=== PATIENT | female | born 1955 | race African-American/Black ===

== ENCOUNTER 2017-11-08 20:19 | Inpatient (IN) | payer MEDICARE, OTHER ==
[~2017-11-08] VITALS: Ht 170.2 cm; Wt 122.7 kg
[~2017-11-08 20:19] MED LIST: DICL-86 PO; GLUCTAB PO; NEUR600T PO; PAIN MED; TYLE3 PO; [UNRECOGNIZED DRUG - REMARK]
[2017-11-08 20:27] VITALS: BP 184/107; PULSE 67; RESP 22; O2SAT 94
[2017-11-08] MEDS ORDERED: NITROGLYCERIN 0.4 MG SL 25 TABS/BTL SL ONE (20:45)
[2017-11-08] MEDS ORDERED: NITROGLYCERIN 2% OINT 1 GM PACKET TOPICAL ONE (20:45)
--- NOTE | 2017-11-08 20:45 | PD ---
HPI Chief Complaint: Respiratory Symptoms Time Seen by Provider: 20:34 Travel History International Travel<30 days: No Contact w/Intl Traveler<30days: No Traveled to known affect area: No History of Present Illness HPI 62y female with a history of congestive heart failure, COPD, diabetes mellitus with CKD, hypertension, presents to the ED complaining of shortness of breath with hallucinations for approximately 1 week. Patient states that she has been taking her made medications regularly which include Bumex but this has not helped control her symptoms. States in addition her legs have been swelling more than normal. Says that she does follow cardiology regularly. She does not know when her last echocardiogram was or the results of this. Says she is on 2 L/min at home but continues to feel short of breath. Says she has visual hallucinations which include seeing "little people" in her house. She is rather distressed about this. Her anthropology and archeology instructor Dr. Aguilar, her lung doctor is Dr. OB. FORREST Past Medical History Diabetes: Yes Diminished Hearing: No Menopausal: Yes Tubal Ligation: Yes Social History Alcohol Use: Yes (OCC) Tobacco Use: Yes (2.5 PPD) Substance Use: No Allergies-Medications (Allergen,Severity, Reaction): Coded Allergies: No Known Allergies (Verified Allergy, Unknown, 11/09/17) Reported Meds & Prescriptions Reported Meds & Active Scripts Active Reported Novolog Inj (Insulin Aspart) 1,000 Unit/10 Ml Vial 24 Units SQ TIDAC Levemir Inj (Insulin Detemir) 1,000 unit/ 10 ML Vial 95 Units SQ BID Do not mix with any other Insulin. Fish Oil + D3 (Fish Oil-Cholecalciferol) 1,200-1,000 Mg-Unit Cap 1,000 Cap PO DAILY Multi For Her (Multiple Vitamins W/ Minerals) 18 Mg Iron-600 Mcg-80 Mcg Tab Aspirin 81 Mg Chew 81 Mg CHEW DAILY Gabapentin 800 Mg Tab 800 Mg PO TID Allopurinol 100 Mg Tab 100 Mg PO TID Bumetanide 2 Mg Tab 2 Mg PO BID Metoprolol Tartrate 25 Mg Tab 25 Mg PO BID Losartan (Losartan Potassium) 25 Mg Tab 25 Mg PO DAILY Amiodarone (Amiodarone HCl) 200 Mg Tab 200 Mg PO DAILY Review of Systems Except as stated in HPI: all other systems reviewed are Neg Physical Exam Narrative GENERAL: Well-developed, well-nourished in mild distress SKIN: Focused skin assessment warm/dry. HEAD: Atraumatic. Normocephalic. EYES: Pupils equal and round. No scleral icterus. No injection or drainage. ENT: No nasal bleeding or discharge. Mucous membranes pink and moist. NECK: Trachea midline. No JVD. CARDIOVASCULAR: Regular rate and rhythm. No murmur appreciated. RESPIRATORY: No accessory muscle use. B/L lower lobes rhonchi MUSCULOSKELETAL: No obvious deformities. No clubbing. No cyanosis. No edema. NEUROLOGICAL: Awake and alert. No obvious cranial nerve deficits. Motor grossly within normal limits. Normal speech. PSYCHIATRIC: Appropriate mood and affect; insight and judgment normal. Data Data Last Documented VS Vital Signs Date Time Temp Pulse Resp B/P (MAP) Pulse Ox O2 Delivery O2 Flow Rate FiO2 11/08/17 22:51 20 11/08/17 21:42 75 127/59 (81) 96 Nasal Cannula 2.00 Orders Orders Complete Blood Count With Diff (11/08/17 20:36) Comprehensive Metabolic Panel (11/08/17 20:36) B-Type Natriuretic Peptide (11/08/17 20:36) Act Partial Throm Time (Ptt) (11/08/17 20:36) Prothrombin Time / Inr (Pt) (11/08/17 20:36) Magnesium (Mg) (11/08/17 20:36) Ckmb (Isoenzyme) Profile (11/08/17 20:36) Troponin I (11/08/17 20:36) Urinalysis - C+S If Indicated (11/08/17 20:36) Electrocardiogram (11/08/17 20:36) Chest, Pa & Lat (11/08/17 20:36) Nitroglycerin 2% Oint (Nitroglycerin 2% (11/08/17 20:45) Nitroglycerin Sl (Nitrostat Sl) (11/08/17 20:45) CKMB (11/08/17 21:30) CKMB% (11/08/17 21:30) Place In Observation (11/09/17 00:48) Activity Bed Rest With Brp (11/09/17 00:48) Vital Signs (Adult) Q4H (11/09/17 00:48) Cardiac Rhythm .As Directed (11/09/17 00:48) Notify Dr: Other .PRN (11/09/17 00:48) Notify Dr. Parameters (11/09/17 00:48) Resp Oxygen Nasal Cannula (11/09/17 ) Ckmb (Isoenzyme) Profile (11/09/17 00:48) Ckmb (Isoenzyme) Profile (11/09/17 03:48) Troponin I (11/09/17 00:48) Troponin I (11/09/17 03:48) Electrocardiogram (11/09/17 00:48) Electrocardiogram (11/09/17 03:48) ^ Obtain (11/09/17 00:48) Sodium Chloride 0.9% Flush (Ns Flush) (11/09/17 01:00) Sodium Chloride 0.9% Flush (Ns Flush) (11/09/17 09:00) Return To Factory Clerk / Telemetry JASON.Q8H (11/09/17 00:48) Admit Order (Ed Use Only) (11/09/17 00:49) CKMB (11/09/17 00:50) CKMB% (11/09/17 00:50) CKMB (11/09/17 03:30) CKMB% (11/09/17 03:30) Labs Laboratory Tests Test 11/08/17 21:00 11/08/17 21:30 11/09/17 00:50 Urine Color LIGHT-YELLOW Urine Turbidity CLEAR Urine pH 7.5 Urine Specific [place] 1.008 Urine Protein NEG mg/dL Urine Glucose (UA) NEG mg/dL Urine Ketones NEG mg/dL Urine Occult Blood NEG Urine Nitrite NEG Urine Bilirubin NEG Urine Urobilinogen LESS THAN 2.0 MG/DL Urine Leukocyte Esterase NEG Urine WBC LESS THAN 1 /hpf Urine Squamous Epithelial Cells 2 /hpf Microscopic Urinalysis Comment CULT NOT INDICATED White Blood Count 6.6 TH/MM3 Red Blood Count 4.29 MIL/MM3 Hemoglobin 11.1 GM/DL Hematocrit 35.9 % Mean Corpuscular Volume 83.7 FL Mean Corpuscular Hemoglobin 26.0 PG Mean Corpuscular Hemoglobin Concent 31.0 % Red Cell Distribution Width 18.0 % Platelet Count 254 TH/MM3 Mean Platelet Volume 9.5 FL Neutrophils (%) (Auto) 65.1 % Lymphocytes (%) (Auto) 23.4 % Monocytes (%) (Auto) 8.0 % Eosinophils (%) (Auto) 2.8 % Basophils (%) (Auto) 0.7 % Neutrophils # (Auto) 4.3 TH/MM3 Lymphocytes # (Auto) 1.5 TH/MM3 Monocytes # (Auto) 0.5 TH/MM3 Eosinophils # (Auto) 0.2 TH/MM3 Basophils # (Auto) 0.0 TH/MM3 CBC Comment DIFF FINAL Differential Comment Prothrombin Time 10.2 SEC Prothromb Time International Ratio 1.0 RATIO Activated Partial Thromboplast Time 22.2 SEC Blood Urea Nitrogen 55 MG/DL Creatinine 2.01 MG/DL Random Glucose 179 MG/DL Total Protein 7.4 GM/DL Albumin 3.1 GM/DL Calcium Level 8.9 MG/DL Magnesium Level 2.5 MG/DL Alkaline Phosphatase 64 U/L Aspartate Amino Transf (AST/SGOT) 42 U/L Alanine Aminotransferase (ALT/SGPT) 28 U/L Total Bilirubin 0.4 MG/DL Sodium Level 142 MEQ/L Potassium Level 4.9 MEQ/L Chloride Level 98 MEQ/L Carbon Dioxide Level 34.8 MEQ/L Anion Gap 9 MEQ/L Estimat Glomerular Filtration Rate 30 ML/MIN Total Creatine Kinase 330 U/L 260 U/L Creatine Kinase MB 2.7 NG/ML 2.1 NG/ML Creatine Kinase MB % 0.8 % 0.8 % Troponin I LESS THAN 0.02 NG/ML LESS THAN 0.02 NG/ML B-Type Natriuretic Peptide 39 PG/ML MDM Medical Decision Making Medical Screen Exam Complete: Yes Emergency Medical Condition: Yes Differential Diagnosis CHF, COPD, NSTEMI, angina Narrative Course 62y female with a history of CHF, COPD, HTN, and DM with CKD presents to the ED c/o SOB with hallucinations for 1 week. She uses O2 2LPM NC at home but still feels SOB. EKG shows Vital Signs Date Time Temp Pulse Resp B/P (MAP) Pulse Ox O2 Delivery O2 Flow Rate FiO2 11/08/17 20:27 67 22 184/107 (132) 94 Labs and imaging studies ordered. Physical exam findings demonstrate bilateral lower lobe rales, bilateral lower extremity edema, on nasal cannula. Last Impressions Chest X-Ray 11/08/172035 Signed Impressions: Service Date/Time: October 20:50 - CONCLUSION: 1. Mild congestive heart failure. Issac Sullivan MD Nitro 1" paste and Nitro SL administered. Labs and dispo pending as of transfer of care to my attending, Dr. Beckett. Condition: Stable Shoshana Marte Nov 08, 2017 20:45
--- NOTE | 2017-11-08 21:35 | RADRPT ---
EXAM DATE/TIME: 11/08/2017 20:50 [facility] COMPARISON: No previous studies available for comparison. INDICATIONS : Shortness of breath. MEDICAL HISTORY : Chronic obstructive pulmonary disease. Congestive heart failure. Diabetes mellitus type II. Hyper tension. Myocardial infarction. SURGICAL HISTORY : CABG. ENCOUNTER: Initial ACUITY: 1 week PAIN SCORE: 0/10 LOCATION: Bilateral chest FINDINGS: Cardiomegaly. Mild edema pattern. Trace pleural fluid. Postop CABG. CONCLUSION: 1. Mild congestive heart failure. Issac Sullivan MD on November 08, 2017 at 21:32 Board Certified Radiologist. This report was verified electronically.
[2017-11-08 21:42] VITALS: BP 127/59; PULSE 75; RESP 22; O2SAT 96
[2017-11-08] MEDS ORDERED: BUME2TAB PO (21:58)
[2017-11-08] MEDS ORDERED: ALLO100T PO (21:58)
[2017-11-08] MEDS ORDERED: LEVEMIR SQ (21:58)
[2017-11-08] MEDS ORDERED: NOVOLOGP2 SQ (21:58)
[2017-11-08] MEDS ORDERED: AMIO200T PO (21:58)
[2017-11-08] MEDS ORDERED: METO25TA3 PO (21:58)
[2017-11-08] MEDS ORDERED: FISHCAP4 PO (21:58)
[2017-11-08] MEDS ORDERED: LOSA25TA PO (21:58)
[2017-11-08] MEDS ORDERED: GABA800T PO (21:58)
[2017-11-08] MEDS ORDERED: ASPI-516 CHEW (21:58)
[2017-11-08] MEDS ORDERED: MULTTAB24 (21:58)
[2017-11-08 21:59] LABS: BILIRUBIN, URINE NEG (NEG); BLOOD, URINE NEG (NEG); GLUCOSE,URINE NEG (NEG); KETONE, URINE NEG (NEG); NITRITE,URINE NEG (NEG); PH, URINE 7.5 (5.0-8.5); SQUAMOUS EPITHELIAL CELL URINE 2 /hpf (0-5); URINE COLOR LIGHT-YELLOW (YELLW/STRAW); URINE LEUKOCYTE ESTERASE NEG (NEG)
[2017-11-08 22:35] LABS: AUTOMATED NEUTROPHIL # 4.3 TH/MM3 (1.8-7.7); BASOPHIL % 0.7 % (0.0-2.0); EOSINOPHIL # 0.2 TH/MM3 (0-0.4); EOSINOPHIL % 2.8 % (0.0-4.0); HEMATOCRIT 35.9 % (35.0-46.0); HEMOGLOBIN 11.1 GM/DL (11.6-15.3); LYMPH % 23.4 % (9.0-44.0); LYMPHOCYTE # 1.5 TH/MM3 (1.0-4.8); MEAN CELL VOLUME 83.7 FL (80.0-100.0); MEAN PLATELET VOLUME 9.5 FL (7.0-11.0); MONOCYTE # 0.5 TH/MM3 (0-0.9); NEUT % 65.1 % (16.0-70.0); PLATELET COUNT 254 TH/MM3 (150-450); RED BLOOD COUNT 4.29 MIL/MM3 (4.00-5.30); WHITE BLOOD COUNT 6.6 TH/MM3 (4.0-11.0)
[2017-11-08 22:51] LABS: PROTHROMBIN TIME - PATIENT 10.2 SEC (9.8-11.6)
[2017-11-08 23:12] LABS: ALBUMIN 3.1 GM/DL (3.4-5.0); ALKALINE PHOSPHATASE 64 U/L (45-117); ALT (GPT) 28 U/L (10-53); AST (GOT) 42 U/L (15-37); BICARBONATE 34.8 MEQ/L (21.0-32.0); BLOOD UREA NITROGEN 55 MG/DL (7-18); CALCIUM 8.9 MG/DL (8.5-10.1); CHLORIDE 98 MEQ/L (98-107); CREATININE 2.01 MG/DL (0.50-1.00); GLOMERULAR FILTRATION RATE 30 ML/MIN (>89); GLUCOSE,RANDOM 179 MG/DL (74-106); MAGNESIUM 2.5 MG/DL (1.5-2.5); SODIUM (NA) 142 MEQ/L (136-145); TOTAL BILIRUBIN ADULT 0.4 MG/DL (0.2-1.0); TROPONIN I LESS THAN 0.02 NG/ML (0.02-0.05)
[2017-11-08 23:32] LABS: TOTAL PROTEIN 7.4 GM/DL (6.4-8.2)
[2017-11-09] VITALS (7 sets, daily range): BP systolic 128–145; BP diastolic 57–70; PULSE 61–100; RESP 18–21; TEMP 98.1–98.3; O2SAT 91–98
[2017-11-09] MEDS ORDERED: SODIUM CHLORIDE 0.9% FLUSH 10 ML FLUSH IV FLUSH PRN (01:00)
[2017-11-09 01:42] LABS: TROPONIN I LESS THAN 0.02 NG/ML (0.02-0.05)
[2017-11-09 04:21] LABS: TROPONIN I LESS THAN 0.02 NG/ML (0.02-0.05)
[2017-11-09] MEDS ORDERED: NITROGLYCERIN 0.4 MG SL 25 TABS/BTL SL PRN (07:45)
--- NOTE | 2017-11-09 09:25 | HHI.HP ---
HPI Primary Care Physician KARTIK Martinez ([place], [place]) Chief Complaint Hallucinations History of Present Illness 62 year old female with history of CABGx3, CHF, COPD, o2/3L home continuous use , and recent hospitalization requiring intubation presents to ER for further evaluation of hallucinations. Reports being hospitalized 3 weeks ago at [facility] requiring emergent intubation. Discharged approximately 1.5 weeks ago. Reports doing "fine" however daughter reports mother to be hallucinating the last 2 nights. Hallucination same symptom prior to requiring intubation a few weeks ago, therefore daughter brought mother into ER for further evaluation. She expresses concern over preventing the need for intubation again. Endorse 3-4 pound weight gain over the last couple of days and requires to sit upright in order to breath easily. In regards to chest discomfort, reported to ER physician experiencing intermittent left anterior chest discomfort. Characterized as "needle pains." Duration seconds. No radiation of discomfort. No associated symptoms of nausea, vomiting, dyspnea, or diaphoresis. No known precipitating or relieving factors. Chest discomfort not her main concern bringing her to the ER. Review of Systems General: No fatigue,weakness, fever, chills, or change in appetite. Recently discharged 1.5 weeks ago [facility] s/p intubation. Since discharge has been in slowly returning to her general state of health, noting last 2 nights hallucinations. HEENT: No SKINNER, no vision changes, no nasal congestion or drainage, no dysphasia CV: As stated above. No current CP, pressure, or discomfort. RESP: O2/3L home use, reports "turning up" oxygen as needed more often. Requires sitting in upright position to breath. Chronic productive cough of thin, clear sputum. History of COPD and follows with Dr. Sierra. GI: No nausea, vomiting, or bowel changes. No change in appetite, no unintentional weight gain or weight loss. : No dysuria, urgency, frequency EXT: Bilateral lower leg edema increasing edema last few days, no paraesthesias MS: No discomfort or change in ROM NEURO: No difficulty with balance, LOC, motor/sensory deficits PSYCH: No anxiety, depression, or situational stress. SKIN: No rashes, no concerning lesions Past Family Social History Allergies: Coded Allergies: No Known Allergies (Verified Allergy, Unknown, 11/09/17) Past Medical History Congestive heart failure, COPD, HLD, HTN, type II diabetes, home oxygen, CAD, cardiomyopathy Past Surgical History CABG x3 (2011) Reported Medications Reported Meds & Active Scripts Active Reported Novolog Inj (Insulin Aspart) 1,000 Unit/10 Ml Vial 24 Units SQ TIDAC Levemir Inj (Insulin Detemir) 1,000 unit/ 10 ML Vial 95 Units SQ BID Do not mix with any other Insulin. Fish Oil + D3 (Fish Oil-Cholecalciferol) 1,200-1,000 Mg-Unit Cap 1,000 Cap PO DAILY Multi For Her (Multiple Vitamins W/ Minerals) 18 Mg Iron-600 Mcg-80 Mcg Tab Aspirin 81 Mg Chew 81 Mg CHEW DAILY Gabapentin 800 Mg Tab 800 Mg PO TID Allopurinol 100 Mg Tab 100 Mg PO TID Bumetanide 2 Mg Tab 2 Mg PO BID Metoprolol Tartrate 25 Mg Tab 25 Mg PO BID Losartan (Losartan Potassium) 25 Mg Tab 25 Mg PO DAILY Amiodarone (Amiodarone HCl) 200 Mg Tab 200 Mg PO DAILY Active Ordered Medications Current Medications Medications (Trade) Dose Ordered Sig/Elder Route Start Time Stop Time Status Last Admin (NS Flush) 2 ml UNSCH PRN IV FLUSH 11/09/17 01:00 (NS Flush) 2 ml BID IV FLUSH 11/09/17 09:00 (Tylenol) 500 mg Q4H PRN PO 11/09/17 07:45 (Zofran Inj) 4 mg Q6H PRN IV PUSH 11/09/17 07:45 (Nitrostat Sl) 0.4 mg Q5M PRN SL 11/09/17 07:45 (Aspirin) 325 mg DAILY PO 11/09/17 09:00 Social History Known CAD, HLD, HTN, and Type II DM. Former smoker. 90-112.5 pack year history. Denies any alcohol or illegal drug use. Past cardiac testing November 2016 Nuclear chemical stress testing with Dr. Escamilla office. Spoke with Eugenie from Dr. Escamilla office, testing reported to be normal. Awaiting results to be faxed. CABGx3 6 years ago-[facility] Physical Exam Vital Signs Vital Signs Date Time Temp Pulse Resp B/P (MAP) Pulse Ox O2 Delivery O2 Flow Rate FiO2 11/09/17 07:28 66 18 133/63 (86) 98 Room Air 11/09/17 03:27 68 20 128/57 (80) 96 Nasal Cannula 2.00 11/09/17 00:57 96 Nasal Cannula 2.00 11/08/17 22:51 20 11/08/17 21:42 75 22 127/59 (81) 96 Nasal Cannula 2.00 11/08/17 20:27 67 22 184/107 (132) 94 Physical Exam GENERAL: Alert WD, pleasant, obese, female sitting upright in bed with o2/3L nasal cannula with mild difficulty breathing. HEAD: NC, AT CV: RRR, 2/6 systolic murmur. S1-S2 no S3-S4. JVD noted. RESP: Diminished lungs throughout bilateral, rales noted. No wheeze or rhonchi. symmetrical chest rise, able to speak in full sentences with some difficulty breathing, nasal cannula in use. ABD: Soft, NT, ND, no masses, positive bowel tones, obese EXT: Pulses +14, +2 pitting bilateral lower leg edema MS: Normal tone 4 extremities, no obvious deformities, full range of motion NEURO: CN II through CN XII grossly intact, motor strength 5/5 PSYCH: A+O 3, pleasant affect, appropriate speech, mood, insight and judgment SKIN: Normal turgor, dry, normal texture, no lesions, no rashes, surgical scars bilateral lower extremities and midchest Laboratory Laboratory Tests Test 11/08/17 21:00 11/08/17 21:30 11/09/17 00:50 11/09/17 03:30 Urine Color LIGHT-YELLOW Urine Turbidity CLEAR Urine pH 7.5 Urine Specific [place] 1.008 Urine Protein NEG Urine Glucose (UA) NEG Urine Ketones NEG Urine Occult Blood NEG Urine Nitrite NEG Urine Bilirubin NEG Urine Urobilinogen LESS THAN 2.0 Urine Leukocyte Esterase NEG Urine WBC LESS THAN 1 Urine Squamous Epithelial Cells 2 Microscopic Urinalysis Comment CULT NOT INDICATED White Blood Count 6.6 Red Blood Count 4.29 Hemoglobin 11.1 Hematocrit 35.9 Mean Corpuscular Volume 83.7 Mean Corpuscular Hemoglobin 26.0 Mean Corpuscular Hemoglobin Concent 31.0 Red Cell Distribution Width 18.0 Platelet Count 254 Mean Platelet Volume 9.5 Neutrophils (%) (Auto) 65.1 Lymphocytes (%) (Auto) 23.4 Monocytes (%) (Auto) 8.0 Eosinophils (%) (Auto) 2.8 Basophils (%) (Auto) 0.7 Neutrophils # (Auto) 4.3 Lymphocytes # (Auto) 1.5 Monocytes # (Auto) 0.5 Eosinophils # (Auto) 0.2 Basophils # (Auto) 0.0 CBC Comment DIFF FINAL Differential Comment Prothrombin Time 10.2 Prothromb Time International Ratio 1.0 Activated Partial Thromboplast Time 22.2 Blood Urea Nitrogen 55 Creatinine 2.01 Random Glucose 179 Total Protein 7.4 Albumin 3.1 Calcium Level 8.9 Magnesium Level 2.5 Alkaline Phosphatase 64 Aspartate Amino Transf (AST/SGOT) 42 Alanine Aminotransferase (ALT/SGPT) 28 Total Bilirubin 0.4 Sodium Level 142 Potassium Level 4.9 Chloride Level 98 Carbon Dioxide Level 34.8 Anion Gap 9 Estimat Glomerular Filtration Rate 30 Total Creatine Kinase 330 260 272 Creatine Kinase MB 2.7 2.1 2.3 Creatine Kinase MB % 0.8 0.8 0.8 Troponin I LESS THAN 0.02 LESS THAN 0.02 LESS THAN 0.02 B-Type Natriuretic Peptide 39 Result Diagram: 11/08/17212911/08/172129 Imaging Last 48 hours Impressions Chest X-Ray 11/08/172035 Signed Impressions: Service Date/Time: October 20:50 - CONCLUSION: 1. Mild congestive heart failure. Issac Sullivan MD Course EKG NSR, nonspecific st changes Caprini VTE Risk Assessment Caprini VTE Risk Assessment: Mod/High Risk (score >= 2) Caprini Risk Assessment Model Point Value = 1 Point Value = 2 Point Value = 3 Point Value = 5 Age 41-60 Minor surgery BMI > 25 kg/m2 Swollen legs Varicose veins or History of unexplained or recurrent spontaneous Oral contraceptives or hormone replacement Sepsis (< 1 month) Serious lung disease, including pneumonia (< 1 month) Abnormal pulmonary function Acute myocardial infarction Congestive heart failure (< 1 month) History of inflammatory bowel disease Medical patient at bed rest Age 61-74 Arthroscopic surgery Major open surgery (> 45 min) Laparoscopic surgery (> 45 min) Malignancy Confined to bed (> 72 hours) Immobilizing plaster cast Central venous access Age >= 75 History of VTE Family history of VTE Factor V Leiden Prothrombin [id number] Lupus anticoagulant Anticardiolipin antibodies Elevated serum homocysteine Heparin-induced thrombocytopenia Other congenital or acquired thrombophilia Stroke (< 1 month) Elective arthroplasty Hip, pelvis, or leg fracture Acute spinal cord injury (< 1 month) Prophylaxis Regimen Total Risk Factor Score Risk Level Prophylaxis Regimen 0-1 Low Early ambulation 2 Moderate Order ONE of the following: *Sequential Compression Device (SCD) *Heparin 5000 units SQ BID 3-4 Higher Order ONE of the following medications: *Heparin 5000 units SQ TID *Enoxaparin/Lovenox 40 mg SQ daily (WT < 150 kg, CrCl > 30 mL/min) *Enoxaparin/Lovenox 30 mg SQ daily (WT < 150 kg, CrCl > 10-29 mL/min) *Enoxaparin/Lovenox 30 mg SQ BID (WT < 150 kg, CrCl > 30 mL/min) AND/OR *Sequential Compression Device (SCD) 5 or more Highest Order ONE of the following medications: *Heparin 5000 units SQ TID (Preferred with Epidurals) *Enoxaparin/Lovenox 40 mg SQ daily (WT < 150 kg, CrCl > 30 mL/min) *Enoxaparin/Lovenox 30 mg SQ daily (WT < 150 kg, CrCl > 10-29 mL/min) *Enoxaparin/Lovenox 30 mg SQ BID (WT < 150 kg, CrCl > 30 mL/min) AND *Sequential Compression Device (SCD) Assessment and Plan Assessment and Plan #1 Atypical chest pain-admitted to chest pain center. Ruled out with 3 sets of EKGs, cardiac enzymes, and monitored on telemetry overnight. Will be seen and evaluated by Dr. Niranjan Grady. Reports recently completing a nuclear stress testing within the last 6 months. Call placed to Dr. Escamilla office to determine most recent cardiac testing. #2 History of CHF with possible exacerbation-rales bilateral, JVD noted. Consider continuing Bumex, baseline creatine level unknown. Will discuss with Dr. Grady. Most likely will benefit from medical management observation or inpatient stay. This will be determined by Dr. Grady after his evaluation. #3 Renal insufficiency-baseline creating level unknown, most recent available comparison labs from 2010. Obtain records from [facility] recent admission. #4 History of CAD-continue #5 History of Type II diabetes insulin dependent-SSI low dose scale, continuing home insulin regimen after NPO status changed. Discussed with patient who verbalized understanding. 0930 Spoke with Eugenie, from Dr. Escamilla office. Most recent cardiac testing November 2016 reported to be unremarkable. 1130-Patient seen and evaluated by Dr. Grady. No further cardiac testing required at this time. Recommend inpatient admission and medical management for fluid management, renal failure, and stabilize respiratory status. This has been discussed in length with patient, who verbalized understanding and agreeable to plan of care. Danielle Hoover Nov 09, 2017 09:25
[2017-11-09] MEDS ORDERED: DEXTROSE 50% IN WATER 50 ML VIAL(D50) IV PUSH PRN (09:30)
[2017-11-09] MEDS ORDERED: GLUCAGON 1 MG/ML VIAL OTHER PRN (09:30)
[2017-11-09] MEDS: AMIODARONE 200 MG TAB PO SCH (10:24)
[2017-11-09] MEDS: LOSARTAN 25 MG TAB PO SCH (10:24)
[2017-11-09] MEDS: METOPROLOL TARTRATE 25 MG TAB PO SCH ×2 (10:24→21:53)
[2017-11-09] MEDS: ASPIRIN 325 MG TAB PO SCH (10:25)
[2017-11-09] MEDS: SODIUM CHLORIDE 0.9% FLUSH 10 ML FLUSH IV FLUSH SCH ×2 (10:25→21:54)
--- NOTE | 2017-11-09 11:37 | PD.CARD.PN ---
Subjective Subjective Remarks Patient was discussed with nurse practitioner, medical records were reviewed, she was then seen and examined personally. There is a very complicated 62-year-old obese black female with severe COPD and superimposed congestive heart failure complicated by chronic renal failure, diabetes and hypertension. She has recently been hospitalized at [facility] requiring intubation and realized that visual hallucinations which she has experienced prior to needing intubation were an indication that she probably was deteriorating and needed medical treatment. She came to the emergency room quickly hoping to avoid recurrent intubation. She has noted significant swelling recently along with deterioration of her breathing. She has to sit bolt upright to be able to breathe currently. She has been using Bumex at home but is no longer responding effectively. Her PO2 on room air for even a couple of minutes is down to 91. She is going to require aggressive in- house treatment to clear her fluids restabilize her heart and lungs. Objective Medications Current Medications Medications (Trade) Dose Ordered Sig/Elder Route Start Time Stop Time Status Last Admin (NS Flush) 2 ml UNSCH PRN IV FLUSH 11/09/17 01:00 (NS Flush) 2 ml BID IV FLUSH 11/09/17 09:00 11/09/17 10:25 (Tylenol) 500 mg Q4H PRN PO 11/09/17 07:45 (Zofran Inj) 4 mg Q6H PRN IV PUSH 11/09/17 07:45 (Nitrostat Sl) 0.4 mg Q5M PRN SL 11/09/17 07:45 (Aspirin) 325 mg DAILY PO 11/09/17 09:00 11/09/17 10:25 (D50w (Vial) Inj) 50 ml UNSCH PRN IV PUSH 11/09/17 09:30 (Glucagon Inj) 1 mg UNSCH PRN OTHER 11/09/17 09:30 (NovoLOG SUPPLEMENTAL SCALE) 1 ACHS SLIDING SCALE SQ 11/09/17 12:00 (Cordarone) 200 mg DAILY PO 11/09/17 09:45 11/09/17 10:24 (Neurontin) 800 mg TID PO 11/09/17 13:00 (Cozaar) 25 mg DAILY PO 11/09/17 09:45 11/09/17 10:24 (Lopressor) 25 mg BID PO 11/09/17 09:45 11/09/17 10:24 Vital Signs / I&O Vital Signs Date Time Temp Pulse Resp B/P (MAP) Pulse Ox O2 Delivery O2 Flow Rate FiO2 11/09/17 10:27 100 20 134/64 (87) 91 Room Air 11/09/17 07:28 66 18 133/63 (86) 98 Room Air 11/09/17 03:27 68 20 128/57 (80) 96 Nasal Cannula 2.00 11/09/17 00:57 96 Nasal Cannula 2.00 11/08/17 22:51 20 11/08/17 21:42 75 22 127/59 (81) 96 Nasal Cannula 2.00 11/08/17 20:27 67 22 184/107 (132) 94 Physical Exam Obese lady sitting upright in bed with oxygen on still having difficulty breathing with a productive cough. Neck JVD is noted Examination of the chest reveals diminished breath sounds with bibasilar Rales Heart sounds are difficult to hear but appear to be regular and there also appears to be a systolic murmur. Abdomen is obese but could not be evaluated appropriately and her seated position and she could not lie recumbent peripheral edema is noted Laboratory Laboratory Tests Test 11/08/17 21:00 11/08/17 21:30 11/09/17 00:50 11/09/17 03:30 Urine Color LIGHT-YELLOW Urine Turbidity CLEAR Urine pH 7.5 Urine Specific [place] 1.008 Urine Protein NEG mg/dL Urine Glucose (UA) NEG mg/dL Urine Ketones NEG mg/dL Urine Occult Blood NEG Urine Nitrite NEG Urine Bilirubin NEG Urine Urobilinogen LESS THAN 2.0 MG/DL Urine Leukocyte Esterase NEG Urine WBC LESS THAN 1 /hpf Urine Squamous Epithelial Cells 2 /hpf Microscopic Urinalysis Comment CULT NOT INDICATED White Blood Count 6.6 TH/MM3 Red Blood Count 4.29 MIL/MM3 Hemoglobin 11.1 GM/DL Hematocrit 35.9 % Mean Corpuscular Volume 83.7 FL Mean Corpuscular Hemoglobin 26.0 PG Mean Corpuscular Hemoglobin Concent 31.0 % Red Cell Distribution Width 18.0 % Platelet Count 254 TH/MM3 Mean Platelet Volume 9.5 FL Neutrophils (%) (Auto) 65.1 % Lymphocytes (%) (Auto) 23.4 % Monocytes (%) (Auto) 8.0 % Eosinophils (%) (Auto) 2.8 % Basophils (%) (Auto) 0.7 % Neutrophils # (Auto) 4.3 TH/MM3 Lymphocytes # (Auto) 1.5 TH/MM3 Monocytes # (Auto) 0.5 TH/MM3 Eosinophils # (Auto) 0.2 TH/MM3 Basophils # (Auto) 0.0 TH/MM3 CBC Comment DIFF FINAL Differential Comment Prothrombin Time 10.2 SEC Prothromb Time International Ratio 1.0 RATIO Activated Partial Thromboplast Time 22.2 SEC Blood Urea Nitrogen 55 MG/DL Creatinine 2.01 MG/DL Random Glucose 179 MG/DL Total Protein 7.4 GM/DL Albumin 3.1 GM/DL Calcium Level 8.9 MG/DL Magnesium Level 2.5 MG/DL Alkaline Phosphatase 64 U/L Aspartate Amino Transf (AST/SGOT) 42 U/L Alanine Aminotransferase (ALT/SGPT) 28 U/L Total Bilirubin 0.4 MG/DL Sodium Level 142 MEQ/L Potassium Level 4.9 MEQ/L Chloride Level 98 MEQ/L Carbon Dioxide Level 34.8 MEQ/L Anion Gap 9 MEQ/L Estimat Glomerular Filtration Rate 30 ML/MIN Total Creatine Kinase 330 U/L 260 U/L 272 U/L Creatine Kinase MB 2.7 NG/ML 2.1 NG/ML 2.3 NG/ML Creatine Kinase MB % 0.8 % 0.8 % 0.8 % Troponin I LESS THAN 0.02 NG/ML LESS THAN 0.02 NG/ML LESS THAN 0.02 NG/ML B-Type Natriuretic Peptide 39 PG/ML Imaging Last 24 hours Impressions Chest X-Ray 11/08/172035 Signed Impressions: Service Date/Time: October 20:50 - CONCLUSION: 1. Mild congestive heart failure. Issac Sullivan MD Assessment and Plan Assessment and Plan This lady is in relatively acute distress with CHF superimposed on underlying severe lung disease She does not diurese well due to chronic renal failure Further complicated by diabetes and hypertension PLAN Further evaluation for ischemic heart disease in the chest pain clinic would be inappropriate and not possible She obviously cannot be discharged in her current status She will be admitted for aggressive diuresis restabilization and then evaluation as needed at that time Obtaining medical records from [facility] regarding her recent intubation there and from Dr. Carias would be helpful and will be requested Code Status Full code however this needs to be discussed with the patient and family at the first appropriate opportunity Discussed Condition With Discussed with the nurse practitioner and with the patient Stoner,Niranjan Butts MD Nov 09, 2017 11:37
[2017-11-09] MEDS: INSULIN ASPART SUPPLEMENTAL SCALE SQ SCH ×3 (12:00→21:52)
[2017-11-09] MEDS ORDERED: GABAPENTIN 400 MG CAP PO SCH (13:00)
[2017-11-09] MEDS: BUMETANIDE 1 MG TAB PO SCH ×2 (13:33→17:33)
--- NOTE | 2017-11-09 14:12 | PD.CONS ---
HPI Service [facility] Consult Requested By Dr. Grady Reason for Consult Medical Management, CHF Primary Care Physician Unknown Diagnoses: History of Present Illness Written by Rylee Gallo, acting as scribe for Dr. Alex on 11/09/17 at 14:12. 62-year-old female with history of CAD s/p 3vessel CABG, CHF, COPD on 3L NC, HTN , HLD, Diabetes, Anemia, CKD baseline creatinine around 2.0, presents with increasing shortness of breath, cough, edema, weight gain, and hallucinations over the past 2 weeks. The patient was recently admitted to [facility] 09/28-10/06 for acute renal failure, acute respiratory failure, CHF, fluid overload, possible pneumonia, s/p intubation on 09/29, discharged on Bumex 2mg bid for CHF. The patient states over the past couple weeks she started to feel sick again. She has been having increasing shortness of breath and increased frequency of cough with white sputum. She wears 3L NC oxygen at home. Denies fevers/chills. She also reports "a little bit" of chest pains intermittently, located at the left anterior chest with some sharp shooting pains to the left neck. She has increased leg swelling however her legs are still better than when she was in the hospital. Also reports recent 4 lbs weight gain over the past 2 weeks. Recently she started to hallucinate and seeing 2 little people on night 11/08. She's been having these hallucinations intermittently over the past 2 weeks which worries her because she was hallucinating before she was intubated in September. The hallucinations prompted her to come to the ER. She states it's possible that her oxygen has been falling off her face at night because she hasn't been taping it to her cheeks. She denies any chest pain currently after the nitro patch was put on in the ER. She saw her director advanced Dr. Escamilla on 10/30 and reportedly was doing well. She had a nuclear stress test 4 months ago that was reportedly normal. She reports compliance with her medications and fluid restrictions, but admits to salt indiscretion. She sees secretary receptionist Dr. Whitley. She was supposed to see him yesterday but she wasn't feeling well so she came to the hospital instead. She otherwise denies any other medical complaints including no lightheadedness, dizziness, congestion, sore throat, abdominal pain, nausea/vomiting, diarrhea, or urinary complaints. Review of Systems Except as stated in HPI: all other systems reviewed are Neg Past Family Social History Allergies: Coded Allergies: No Known Allergies (Verified Allergy, Unknown, 11/09/17) Past Medical History CAD s/p 3vessel CABG CHF COPD on 3L NC HTN HLD Diabetes Diabetic Foot Ulcer Osteomyelitis Gout Anemia CKD baseline creatinine around 2.0 TAMI Obesity Past Surgical History CABG Thoracentesis Tubal Ligation Reported Medications Novolog Inj (Insulin Aspart) 1,000 Unit/10 Ml Vial 24 Units SQ TIDAC Levemir Inj (Insulin Detemir) 1,000 unit/ 10 ML Vial 95 Units SQ BID Fish Oil + D3 (Fish Oil-Cholecalciferol) 1,200-1,000 Mg-Unit Cap 1,000 Cap PO DAILY Multi For Her (Multiple Vitamins W/ Minerals) 18 Mg Iron-600 Mcg-80 Mcg Tab Aspirin 81 Mg Chew 81 Mg CHEW DAILY Gabapentin 800 Mg Tab 800 Mg PO TID Allopurinol 100 Mg Tab 100 Mg PO TID Bumetanide 2 Mg Tab 2 Mg PO BID Metoprolol Tartrate 25 Mg Tab 25 Mg PO BID Losartan (Losartan Potassium) 25 Mg Tab 25 Mg PO DAILY Amiodarone (Amiodarone HCl) 200 Mg Tab 200 Mg PO DAILY Active Ordered Medications Current Medications Medications (Trade) Dose Ordered Sig/Elder Route Start Time Stop Time Status Last Admin (NS Flush) 2 ml UNSCH PRN IV FLUSH 11/09/17 01:00 (NS Flush) 2 ml BID IV FLUSH 11/09/17 09:00 11/09/17 10:25 (Tylenol) 500 mg Q4H PRN PO 11/09/17 07:45 (Zofran Inj) 4 mg Q6H PRN IV PUSH 11/09/17 07:45 (Nitrostat Sl) 0.4 mg Q5M PRN SL 11/09/17 07:45 (Aspirin) 325 mg DAILY PO 11/09/17 09:00 11/09/17 10:25 (D50w (Vial) Inj) 50 ml UNSCH PRN IV PUSH 11/09/17 09:30 (Glucagon Inj) 1 mg UNSCH PRN OTHER 3/23/18 09:30 (NovoLOG SUPPLEMENTAL SCALE) 1 ACHS SLIDING SCALE SQ 11/09/17 12:00 11/09/17 12:00 (Cordarone) 200 mg DAILY PO 11/09/17 09:45 11/09/17 10:24 (Neurontin) 800 mg TID PO 11/09/17 13:00 11/09/17 13:33 (Cozaar) 25 mg DAILY PO 11/09/17 09:45 11/09/17 10:24 (Lopressor) 25 mg BID PO 11/09/17 09:45 11/09/17 10:24 (Bumetanide) 2 mg BID@0900,1800 PO 11/09/17 13:15 11/09/17 13:33 (Levemir Inj) 95 units BID SQ 11/09/17 21:00 Family History Mother and father with old age, no significant medical problems reported 3 adult children, no reported significant history Social History Prior tobacco use, 20 pack year history, quit 5 years ago Denies any alcohol use Denies any illicit drug use States she gave "everything up" when she had CABG Physical Exam Vital Signs Vital Signs Date Time Temp Pulse Resp B/P (MAP) Pulse Ox O2 Delivery O2 Flow Rate FiO2 11/09/17 10:27 100 20 134/64 (87) 91 Room Air 11/09/17 07:28 66 18 133/63 (86) 98 Room Air 11/09/17 03:27 68 20 128/57 (80) 96 Nasal Cannula 2.00 11/09/17 00:57 96 Nasal Cannula 2.00 11/08/17 22:51 20 11/08/17 21:42 75 22 127/59 (81) 96 Nasal Cannula 2.00 11/08/17 20:27 67 22 184/107 (132) 94 Physical Exam GENERAL: Well-nourished, well-developed middle aged obese female patient in [facility]. SKIN: Warm and dry. No rash. HEAD: Normocephalic. Atraumatic. EYES: Pupils equal and round. No scleral icterus. No injection or drainage. ENT: No nasal bleeding or discharge. Mucous membranes pink and moist. NECK: Supple. Trachea midline. CARDIOVASCULAR: Regular rate and rhythm. No murmur appreciated. RESPIRATORY: No accessory muscle use. Clear to auscultation. Breath sounds equal bilaterally. GASTROINTESTINAL: Abdomen soft, non-tender, nondistended. Normoactive bowel sounds x4. MUSCULOSKELETAL: No obvious deformities. Trace to 1+ bilateral lower extremity edema. NEUROLOGICAL: Awake and alert. No obvious cranial nerve deficits. Motor grossly within normal limits. 5/5 muscle strength in bilateral upper and lower extremities. Normal speech. PSYCHIATRIC: Appropriate mood and affect; insight and judgment normal. Laboratory Laboratory Tests Test 11/08/17 21:00 11/08/17 21:30 11/09/17 00:50 11/09/17 03:30 Urine Color LIGHT-YELLOW Urine Turbidity CLEAR Urine pH 7.5 Urine Specific [place] 1.008 Urine Protein NEG Urine Glucose (UA) NEG Urine Ketones NEG Urine Occult Blood NEG Urine Nitrite NEG Urine Bilirubin NEG Urine Urobilinogen LESS THAN 2.0 Urine Leukocyte Esterase NEG Urine WBC LESS THAN 1 Urine Squamous Epithelial Cells 2 Microscopic Urinalysis Comment CULT NOT INDICATED White Blood Count 6.6 Red Blood Count 4.29 Hemoglobin 11.1 Hematocrit 35.9 Mean Corpuscular Volume 83.7 Mean Corpuscular Hemoglobin 26.0 Mean Corpuscular Hemoglobin Concent 31.0 Red Cell Distribution Width 18.0 Platelet Count 254 Mean Platelet Volume 9.5 Neutrophils (%) (Auto) 65.1 Lymphocytes (%) (Auto) 23.4 Monocytes (%) (Auto) 8.0 Eosinophils (%) (Auto) 2.8 Basophils (%) (Auto) 0.7 Neutrophils # (Auto) 4.3 Lymphocytes # (Auto) 1.5 Monocytes # (Auto) 0.5 Eosinophils # (Auto) 0.2 Basophils # (Auto) 0.0 CBC Comment DIFF FINAL Differential Comment Prothrombin Time 10.2 Prothromb Time International Ratio 1.0 Activated Partial Thromboplast Time 22.2 Blood Urea Nitrogen 55 Creatinine 2.01 Random Glucose 179 Total Protein 7.4 Albumin 3.1 Calcium Level 8.9 Magnesium Level 2.5 Alkaline Phosphatase 64 Aspartate Amino Transf (AST/SGOT) 42 Alanine Aminotransferase (ALT/SGPT) 28 Total Bilirubin 0.4 Sodium Level 142 Potassium Level 4.9 Chloride Level 98 Carbon Dioxide Level 34.8 Anion Gap 9 Estimat Glomerular Filtration Rate 30 Total Creatine Kinase 330 260 272 Creatine Kinase MB 2.7 2.1 2.3 Creatine Kinase MB % 0.8 0.8 0.8 Troponin I LESS THAN 0.02 LESS THAN 0.02 LESS THAN 0.02 B-Type Natriuretic Peptide 39 Result Diagram: 11/08/17212911/08/172129 Imaging Last Impressions Chest X-Ray 11/08/172035 Signed Impressions: Service Date/Time: October 20:50 - CONCLUSION: 1. Mild congestive heart failure. Issac Sullivan MD Assessment and Plan Assessment and Plan 62-year-old female with history of CAD s/p 3vessel CABG, CHF, COPD on 3L NC, HTN , HLD, Diabetes, Anemia, CKD baseline creatinine around 2.0, presents with increasing shortness of breath, cough, edema, weight gain, and hallucinations over the past 2 weeks. The patient was recently admitted to [facility] 09/28-10/06 for acute renal failure, acute respiratory failure, CHF, fluid overload, possible pneumonia, s/p intubation on 09/29, discharged on Bumex 2mg bid for CHF. Acute Diastolic CHF Exacerbation: prior records indicate history of diastolic CHF, however no echo on file. Patient with +SOB/BARAKAT, BLE edema. CXR reviewed with mild CHF. -continue patient's diuretic, Bumex 2mg po bid, difficult with diuresis secondary to CKD -continue patient's BB, ARB, aspirin -Monitor Is&Os, fluid/salt restrictions -Monitor on telemetry -Consult patient's Planting Material Unloader Dr. Escamilla Atypical Chest Pain with hx of CAD s/p CABG: suspect chest pain/SOB secondary to CHF as above. She had a nuclear stress test 4 months ago that was reportedly normal. -Rule out ACS with serial cardiac enzymes and EKGs -give aspirin, BB, nitro prn -monitor on telemetry -Cardiology consulted as above Hypertension: chronic -continue patient's home meds including cozaar, metoprolol, amiodarone -monitor BP, adjust antihypertensives as needed Diabetes Mellitus: chronic -continue patient's levemir 90u sq hs and Novolog 22u tidac -monitor accu-checks and cover with SSI COPD, Chronic Respiratory Failure on 3L NC at home: chronic, no wheezing on exam -continue duonebs q8h and q4h prn -O2 as needed -outpatient follow up with secretary receptionist Dr. Whitley. CKD, stage III: Cr 2.01, appears around baseline. Records from [facility] reviewed, baseline around 1.9. -avoid nephrotoxins, caution with diuresis -monitor renal function Hallucinations: patient reporting visual hallucinations. Possibly related to delirium, hypoxia; however eval for psychiatric etiology. -Consult psychiatry DVT Prophylaxis: Heparin sq This note was transcribed by aries Gallo. I, Dr. Ericka Alex personally performed the history, physical exam, and medical decision making; and confirmed the accuracy of the information in the transcribed note. Authenticated by Dr. Ericka Alex on 11/09/17 at 14:12. Code Status Full Code Discussed Condition With Patient, Danielle LOCKHARTRylee White PA-C Nov 09, 2017 14:12 Ericka Alex MD Nov 10, 2017 17:58
[2017-11-09] MEDS ORDERED: LEVEMIR SQ (14:56)
[2017-11-09] MEDS ORDERED: NOVOLOGP2 SQ (14:56)
[2017-11-09] MEDS ORDERED: RESP: ALBUTEROL 2.5 MG/IPRATROPIUM 0.5 MG NEB (PRN) NEB (15:00)
[2017-11-09] MEDS: RESP: ALBUTEROL 2.5 MG/IPRATROPIUM 0.5 MG NEB (SCH) NEB (16:14)
[2017-11-09] MEDS: INSULIN ASPART 1,000 UNITS/10 ML VIAL SQ SCH (17:33)
[2017-11-09] MEDS ORDERED: INSULIN DETEMIR 100 UNITS/ML VIAL SQ SCH (21:00)
[2017-11-09] MEDS: INSULIN DETEMIR 100 UNITS/ML VIAL SQ SCH (21:52)
[2017-11-09] MEDS: HEPARIN SODIUM - SQ 10,000 UNITS/ML VIAL SQ SCH (21:52)
[2017-11-09] MEDS: GABAPENTIN 400 MG CAP PO SCH (21:53)
[2017-11-09] MEDS: ACETAMINOPHEN 500 MG CPLT PO PRN (22:02)
[2017-11-10] VITALS (7 sets, daily range): BP systolic 105–147; BP diastolic 54–70; PULSE 56–64; RESP 19–20; TEMP 98–98.6; O2SAT 94–96
--- NOTE | 2017-11-10 00:23 | MB ---
cc: Cleve Terrell DO DATE: 11/09/2017 REASON FOR CONSULTATION: Congestive heart failure. HISTORY OF PRESENT ILLNESS: Wilson Morfin is a 62-year-old female who sees Dr. Escamilla as her integration architect and presented to [facility] on 11/09/2017. The patient was recently admitted to [facility] in the midportion of September for acute renal failure and acute respiratory failure requiring intubation. She has since been discharged in the middle portion of (0:53) and started getting more short of breath over the past few weeks. She has had a cough with white sputum. She denies any fevers or chills. She denies any chest pain. She has also noticed increased leg swelling. She has been checking her weight and she is up 4 pounds over the past 2 weeks. She also started hallucinating and seeing 2 little people starting the past few days. She has been having these hallucinations intermittently over the past 2 weeks, which worried her and led to her coming into the emergency room as she had similar type effects before being intubated at [facility]. Apparently, she saw Dr. Escamilla a week and a half ago and reportedly was doing well. She states that she had a stress test 4 months ago that was per her normal. She also states that she has been taking her medications and restricting her fluids as instructed, although she has had some salt indiscretion. PAST MEDICAL HISTORY: 1. Coronary artery disease. 2. Chronic diastolic heart failure. 3. Chronic obstructive pulmonary disease on 3 liters at home. 4. Hypertension. 5. Hyperlipidemia. 6. Diabetes. 7. Osteomyelitis. 8. Gout. 9. Anemia. 10. CKD. 11. Obstructive sleep apnea. 12. Obesity. PAST SURGICAL HISTORY: 1. CABG x3. 2. Thoracentesis. 3. Tubal ligation. ALLERGIES: NO KNOWN DRUG ALLERGIES. MEDICATIONS: 1. Amiodarone 200 mg daily. 2. Metoprolol tartrate 25 mg b.i.d. 3. Losartan 25 mg daily. 4. Aspirin 81 mg daily. 5. Gabapentin 800 mg t.i.d. 6. Bumex 2 mg b.i.d. 7. NovoLog 22 units with meals. 8. Levemir 90 units every night. 9. Allopurinol 100 mg t.i.d. FAMILY HISTORY: Denies premature coronary artery disease or sudden cardiac within the family. SOCIAL HISTORY: The patient previously smoked, but quit 5 years ago. Denies alcohol or drug abuse. REVIEW OF SYSTEMS: Fourteen systems were reviewed, including osteopathic; pertinent positives and negatives above, otherwise, negative. PHYSICAL EXAMINATION: VITAL SIGNS: Temperature 98.3, heart rate 61, blood pressure 145/70, respirations 20, pulse oximetry 95% on 2 liters. GENERAL: The patient appears well, in no acute distress, alert, awake and oriented x3. HEENT: Extraocular muscles intact. Mucous membranes moist. NECK: Is supple, no JVD at 45 degrees. No carotid bruits heard bilaterally. Carotid upstroke is brisk in nature. HEART: Has regular rate and rhythm. Positive first and second heart sounds with no noted murmurs, gallops or rubs. LUNGS: Have decreased breath sounds bilaterally. No overt wheezes, rales or rhonchi. ABDOMEN: Is soft, nontender, nondistended. No organomegaly noted. EXTREMITIES: Show 1+ pitting edema bilaterally. NEUROLOGIC: No focal deficits. SKIN: Warm, dry and intact. Osteopathically, mild lordosis, no kyphoscoliosis or paraspinal tender points. LABWORK: Hemoglobin 11.1, hematocrit 35.9, platelets 254. Potassium 4.9, BUN 55, creatinine 2.01. Troponin negative x3. BNP 39. Electrocardiogram (11/09/2017 at 0333) sinus rhythm, poor R-wave progression, possible old septal myocardial infarction. ASSESSMENT AND PLAN: 1. Acute diastolic congestive heart failure. 2. Increased weight gain, most likely due to congestive heart failure. 3. Salt indiscretion. 4. Coronary artery disease with a history of coronary artery bypass grafting. 5. Reported normal stress test 4 months ago. 6. Hypertension. 7. Diabetes mellitus. 8. Chronic obstructive pulmonary disease. 9. Hallucinations. 10. Chronic kidney disease 3. RECOMMENDATIONS: 1. Ms. Morfin presented mostly due to hallucinations, but she has also noticed some shortness of breath and weight gain recently. 2. She appears to have acute diastolic heart failure. In reviewing records from [facility], I believe that her exacerbation is most likely due to salt indiscretion. 3. We will plan on continuing to diurese her as possible. 4. Upon discharge, she will follow up with her integration architect, Dr. Escamilla. 5. We will plan on having Psychiatry see her as she has had visual hallucinations and I believe that this is what brought her in to the hospital, as she was concerned it was due to hypoxia. 6. Further recommendations will be made based on the hospital course. Thank you for allowing me to see Wilson Navjot. If there are any questions, please do not hesitate to call. DO UVALDO Barbosa/YASEMIN , 11:42 PM , 12:22 AM
[2017-11-10] MEDS: ACETAMINOPHEN 500 MG CPLT PO PRN ×2 (06:28→22:15)
[2017-11-10] MEDS: ONDANSETRON HCL 4 MG/2 ML VIAL IV PUSH PRN ×2 (06:28→23:13)
[2017-11-10] MEDS: RESP: ALBUTEROL 2.5 MG/IPRATROPIUM 0.5 MG NEB (SCH) NEB ×2 (08:56→15:46)
[2017-11-10] MEDS: GABAPENTIN 400 MG CAP PO SCH ×2 (09:26→21:00)
[2017-11-10] MEDS: METOPROLOL TARTRATE 25 MG TAB PO SCH ×2 (09:26→21:00)
[2017-11-10] MEDS: HEPARIN SODIUM - SQ 10,000 UNITS/ML VIAL SQ SCH ×2 (09:26→21:00)
[2017-11-10] MEDS: AMIODARONE 200 MG TAB PO SCH (09:27)
[2017-11-10] MEDS: BUMETANIDE 1 MG TAB PO SCH ×2 (09:27→18:00)
[2017-11-10] MEDS: ASPIRIN 81 MG CHEW TAB CHEW SCH (09:27)
[2017-11-10] MEDS: LOSARTAN 25 MG TAB PO SCH (09:27)
[2017-11-10] MEDS: ASPIRIN 325 MG TAB PO SCH (09:27)
[2017-11-10] MEDS: INSULIN ASPART SUPPLEMENTAL SCALE SQ SCH ×4 (09:28→21:00)
[2017-11-10] MEDS: INSULIN ASPART 1,000 UNITS/10 ML VIAL SQ SCH ×3 (09:28→17:00)
[2017-11-10] MEDS: SODIUM CHLORIDE 0.9% FLUSH 10 ML FLUSH IV FLUSH SCH ×2 (09:29→21:00)
--- NOTE | 2017-11-10 12:31 | EKG ---
Date Performed: 11/09/2017 Time Performed: 03:33:50 PTAGE: 62 years EKG: Sinus rhythm SEPTAL MYOCARDIAL INFARCTION ABNORMAL ECG No change PREVIOUS TRACING : 11/09/2017 01.16 DOCTOR: Niranjan Grady Interpretating Date/Time 11/10/2017 12:31:00
--- NOTE | 2017-11-10 12:32 | EKG ---
Date Performed: 11/09/2017 Time Performed: 01:16:01 PTAGE: 62 years EKG: Sinus rhythm SEPTAL MYOCARDIAL INFARCTION ABNORMAL ECG No change PREVIOUS TRACING : 11/08/2017 21.28 DOCTOR: Niranjan Grady Interpretating Date/Time 11/10/2017 12:31:45
--- NOTE | 2017-11-10 12:33 | EKG ---
Date Performed: 11/08/2017 Time Performed: 21:28:42 PTAGE: 62 years EKG: Sinus rhythm POSSIBLE RIGHT VENTRICULAR CONDUCTION DELAY SEPTAL MYOCARDIAL INFARCTION ABNORMAL ECG No significant change PREVIOUS TRACING : 04/25/2009 08.45 DOCTOR: Niranjan Grady Interpretating Date/Time 11/10/2017 12:32:40
--- NOTE | 2017-11-10 13:01 | HHI.PR ---
Subjective Remarks She is sitting in the chair eating she told me she is on on home O2 Currently on nasal cannula Problem with visual hallucination Discussed with cardiology Objective Vitals Vital Signs Date Time Temp Pulse Resp B/P (MAP) Pulse Ox O2 Delivery O2 Flow Rate FiO2 11/10/17 12:00 98.5 60 20 118/57 (77) 95 11/10/17 08:00 98.2 58 20 114/55 (74) 95 11/10/17 04:00 98.1 60 19 119/59 (79) 94 11/10/17 00:00 98.0 64 19 105/70 (82) 94 11/09/17 21:00 Nasal Cannula 2.00 11/09/17 20:00 98.1 61 21 128/61 (83) 94 11/09/17 16:14 94 Nasal Cannula 2.00 11/09/17 16:00 98.3 61 20 145/70 (95) 95 I/O 11/09/17 11/09/17 11/09/17 11/10/17 11/10/17 11/10/17 07:00 15:00 23:00 07:00 15:00 23:00 Intake Total 240 ml Balance 240 ml Intake Oral 240 ml # Voids 1 Result Diagram: 11/08/17212911/08/172129 Objective Remarks GENERAL: This is a well-nourished, well-developed patient, in no apparent distress. SKIN: No rashes, warm and dry HEAD: Atraumatic. Normocephalic. EYES: PERRLA . No scleral icterus. ENT: No bleeding, or drainage, Airway patent. NECK: Trachea midline. Supple CARDIOVASCULAR: RRR, no gallops, or rubs. RESPIRATORY: Fair air entry bilaterally. No W, R, or R GASTROINTESTINAL: Abdomen soft, non-tender, nondistended. Positive bowel sounds MUSCULOSKELETAL: Extremities without clubbing, cyanosis, or edema. Pedal pulses appreciated NEUROLOGICAL: Awake and alert. Moves all extremity. Normal speech.no focal neurological deficit A/P Assessment and Plan 62-year-old female with history of CAD s/p 3vessel CABG, CHF, COPD on 3L NC, HTN , HLD, Diabetes, Anemia, CKD baseline creatinine around 2.0, presents with increasing shortness of breath, cough, edema, weight gain, and hallucinations over the past 2 weeks. The patient [facility] for acute renal failure, acute respiratory failure, CHF, fluid overload, possible pneumonia, s/p intubation on 09/29, discharged on Bumex 2mg bid for CHF. 11/10: Visual hallucination, pending psych eval, D/W cardiology no further intervention at this point Acute Diastolic CHF Exacerbation: prior records indicate history of diastolic CHF, however no echo on file. Patient with +SOB/BARAKAT, BLE edema. CXR reviewed with mild CHF. -continue patient's diuretic, Bumex 2mg po bid, difficult with diuresis secondary to CKD -continue patient's BB, ARB, aspirin -Monitor Is&Os, fluid/salt restrictions -Monitor on telemetry -Consult patient's Hand Tile Maker Dr. Escamilla Atypical Chest Pain with hx of CAD s/p CABG: suspect chest pain/SOB secondary to CHF as above. She had a nuclear stress test 4 months ago that was reportedly normal. -Rule out ACS with serial cardiac enzymes and EKGs -give aspirin, BB, nitro prn -monitor on telemetry -Cardiology consulted as above Hypertension: chronic -continue patient's home meds including cozaar, metoprolol, amiodarone -monitor BP, adjust antihypertensives as needed Diabetes Mellitus: chronic -continue patient's levemir 90u sq hs and Novolog 22u tidac -monitor accu-checks and cover with SSI COPD, Chronic Respiratory Failure on 3L NC at home: chronic, no wheezing on exam -continue duonebs q8h and q4h prn -O2 as needed -outpatient follow up with banquet lead Dr. Whitley. CKD, stage III: Cr 2.01, appears around baseline. Records from [facility] reviewed, baseline around 1.9. -avoid nephrotoxins, caution with diuresis -monitor renal function Hallucinations: patient reporting visual hallucinations. Possibly related to delirium, hypoxia; however eval for psychiatric etiology. -Psychiatry consult DVT Prophylaxis: Heparin sq Rigo Gutierrez MD Nov 10, 2017 13:01
--- NOTE | 2017-11-10 13:17 | PD.CARD.PN ---
Subjective Subjective Remarks No events overnight No chest pain, SOB stable Seeing hallucinations last night including a man tied up in the bed, and people outside her window No intention for harm for herself or others Objective Medications Current Medications Medications (Trade) Dose Ordered Sig/Elder Route Start Time Stop Time Status Last Admin (NS Flush) 2 ml UNSCH PRN IV FLUSH 11/09/17 01:00 (NS Flush) 2 ml BID IV FLUSH 11/09/17 09:00 11/10/17 09:29 (Tylenol) 500 mg Q4H PRN PO 11/09/17 07:45 11/10/17 06:28 (Zofran Inj) 4 mg Q6H PRN IV PUSH 11/09/17 07:45 11/10/17 06:28 (Nitrostat Sl) 0.4 mg Q5M PRN SL 11/09/17 07:45 (Aspirin) 325 mg DAILY PO 11/09/17 09:00 11/10/17 09:27 (D50w (Vial) Inj) 50 ml UNSCH PRN IV PUSH 11/09/17 09:30 (Glucagon Inj) 1 mg UNSCH PRN OTHER 11/09/17 09:30 (NovoLOG SUPPLEMENTAL SCALE) 1 ACHS SLIDING SCALE SQ 11/09/17 12:00 11/10/17 12:47 (Cordarone) 200 mg DAILY PO 11/09/17 09:45 11/10/17 09:27 (Cozaar) 25 mg DAILY PO 11/09/17 09:45 11/10/17 09:27 (Lopressor) 25 mg BID PO 11/09/17 09:45 11/10/17 09:26 (Bumetanide) 2 mg BID@0900,1800 PO 11/09/17 13:15 11/10/17 09:27 (Neurontin) 800 mg BID PO 11/09/17 21:00 11/10/17 09:26 (Levemir Inj) 90 units HS SQ 11/09/17 21:00 11/09/17 21:52 (Aspirin Chew) 81 mg DAILY CHEW 11/10/17 09:00 11/10/17 09:27 (NovoLOG INJ) 22 units TIDAC SQ 11/09/17 17:00 11/10/17 12:46 (Duoneb Neb) 1 ampule Q4HR NEB PRN NEB 11/09/17 15:00 (Duoneb Neb) 1 ampule Q8HR WHILE AWAKE NEB NEB 11/09/17 16:00 11/10/17 08:56 (Heparin Inj) 5,000 units Q12HR SQ 11/09/17 21:00 11/10/17 09:26 Vital Signs / I&O Vital Signs Date Time Temp Pulse Resp B/P (MAP) Pulse Ox O2 Delivery O2 Flow Rate FiO2 11/10/17 12:00 98.5 60 20 118/57 (77) 95 11/10/17 08:00 98.2 58 20 114/55 (74) 95 11/10/17 04:00 98.1 60 19 119/59 (79) 94 11/10/17 00:00 98.0 64 19 105/70 (82) 94 11/09/17 21:00 Nasal Cannula 2.00 11/09/17 20:00 98.1 61 21 128/61 (83) 94 11/09/17 16:14 94 Nasal Cannula 2.00 11/09/17 16:00 98.3 61 20 145/70 (95) 95 I/O 11/09/17 11/09/17 11/09/17 11/10/17 11/10/17 11/10/17 07:00 15:00 23:00 07:00 15:00 23:00 Intake Total 240 ml Balance 240 ml Intake Oral 240 ml # Voids 1 Physical Exam GENERAL: NAD, AAOx3 SKIN: Warm and dry. HEAD: Atraumatic. Normocephalic. EYES: Pupils equal and round. No scleral icterus. No injection or drainage. ENT: No nasal bleeding or discharge. Mucous membranes pink and moist. NECK: Trachea midline. No JVD. CARDIOVASCULAR: Regular rate and rhythm. RESPIRATORY: No accessory muscle use. Decreased breath sounds bilaterally GASTROINTESTINAL: Abdomen soft, non-tender, nondistended. Hepatic and splenic margins not palpable. MUSCULOSKELETAL: Trace edema bilaterally NEUROLOGICAL: Awake and alert. No obvious cranial nerve deficits. Motor grossly within normal limits. Five out of 5 muscle strength in the arms and legs. Normal speech. PSYCHIATRIC: Appropriate mood and affect; insight and judgment normal. Assessment and Plan Problem List: (1) CAD (coronary artery disease) ICD Codes: I25.10 - Atherosclerotic heart disease of [place] coronary artery without angina pectoris (2) Hx of CABG ICD Codes: Z95.1 - Presence of aortocoronary bypass graft (3) Hallucinations ICD Codes: R44.3 - Hallucinations, unspecified (4) SOB (shortness of breath) ICD Codes: R06.02 - Shortness of breath (5) Acute on chronic diastolic (congestive) heart failure ICD Codes: I50.33 - Acute on chronic diastolic (congestive) heart failure Assessment and Plan 1) Present mostly due to hallucinations, as she noted these before being intubated last time, so felt like this was a precursor 2) Acute on chronic diastolic heart failure Possibly due to salt indiscretion Con't low salt diet and fluid restriction Con't diuresis 3) Upon discharge, will follow up with her sheriffs detective, Cleve Shah DO Nov 10, 2017 13:17
--- NOTE | 2017-11-10 15:59 | PD.PSY.CON ---
Provisional Diagnosis Admission Date Nov 09, 2017 at 07:40 [place]. Delirium, History of Present Illness Service Psychiatry Consult Requested By JOANNE Reason for Consult Visual hallucinations Primary Care Physician Unknown HPI Patient is a 62-year-old -[place] woman, lives with keenan and his mother, with no formal past psychiatric history, past medical history significant for CHF, HTN, DM, COPD and CKD who is admitted for CHF exacerbation , chest pain who had been experiencing visual hallucinations for the past two weeks which psychiatry was consulted for evaluation. Patient was found sitting on hospital chair, noted to be calm and cooperative, states that she was losing her breath and came to the hospital for the same. She states that she was noticing visual hallucinations in the mornings "man in my bed" or "little people when I was waking up" which lasted seconds not accompanied by auditory hallucinations. Patient also mentions that these episodes have occurred when she has noticed that she was not wearing the O2 cannula for her oxygen and waking up without it on. She denies having any visual hallucinations while awake and only occur as she is waking up. She denies any other perceptual disturbances, denies any mood or psychotic symptom, no delusional material elicited. Currently she reports feeling "alright" denies any suicidal/ homicidal ideations, denies any auditory or visual hallucinations nor any delusions at time of interview. Past psychiatric history: denies Substance use history: denies Past medical history: denies Allergies: NKDA Social history: domiciled with step son and his mother. Past Family Social History Coded Allergies: No Known Allergies (Verified Allergy, Unknown, 11/09/17) Active Scripts Insulin Aspart Inj (Novolog Inj) 1,000 Unit/10 Ml Vial, 22 UNITS SQ TIDAC for Blood Sugar Management, #10 ML 0 Refills Prov:Rylee Gallo PA-C 11/09/17 Insulin Detemir Inj (Levemir Inj) 1,000 unit/ 10 ML Vial, 90 UNITS SQ HS for Blood Sugar Management for 30 Days, #30 INJECTION 0 Refills Do not mix with any other Insulin. Prov:Rylee Gallo PA-C 11/09/17 Reported Medications Fish Oil-Cholecalciferol (Fish Oil + D3) 1,200-1,000 Mg-Unit Cap, 1000 CAP PO DAILY for Nutritional Supplement, #30 CAP 0 Refills 11/08/17 Multiple Vitamins W/ Minerals (Multi For Her) 18 Mg Iron-600 Mcg-80 Mcg Tab 11/08/17 Aspirin (Aspirin) 81 Mg Chew, 81 MG CHEW DAILY, TAB 0 Refills 11/08/17 Gabapentin (Gabapentin) 800 Mg Tab, 800 MG PO TID, #90 TAB 0 Refills 11/08/17 Allopurinol (Allopurinol) 100 Mg Tab, 100 MG PO TID for Gout, #30 TAB 0 Refills 11/08/17 Bumetanide (Bumetanide) 2 Mg Tab, 2 MG PO BID, TAB 0 Refills 11/08/17 Metoprolol Tartrate (Metoprolol Tartrate) 25 Mg Tab, 25 MG PO BID, #60 TAB 0 Refills 11/08/17 Losartan (Losartan) 25 Mg Tab, 25 MG PO DAILY for Blood Pressure Management, # 30 TAB 0 Refills 11/08/17 Amiodarone (Amiodarone) 200 Mg Tab, 200 MG PO DAILY for Regulate Heart Beat, # 30 TAB 0 Refills 11/08/17 Current Medications Medications (Trade) Dose Ordered Sig/Elder Route Start Time Stop Time Status Last Admin (NS Flush) 2 ml UNSCH PRN IV FLUSH 11/09/17 01:00 (NS Flush) 2 ml BID IV FLUSH 11/09/17 09:00 11/10/17 09:29 (Tylenol) 500 mg Q4H PRN PO 11/09/17 07:45 11/10/17 06:28 (Zofran Inj) 4 mg Q6H PRN IV PUSH 11/09/17 07:45 11/10/17 06:28 (Nitrostat Sl) 0.4 mg Q5M PRN SL 11/09/17 07:45 (Aspirin) 325 mg DAILY PO 11/09/17 09:00 11/10/17 09:27 (D50w (Vial) Inj) 50 ml UNSCH PRN IV PUSH 11/09/17 09:30 (Glucagon Inj) 1 mg UNSCH PRN OTHER 11/09/17 09:30 (NovoLOG SUPPLEMENTAL SCALE) 1 ACHS SLIDING SCALE SQ 11/09/17 12:00 11/10/17 12:47 (Cordarone) 200 mg DAILY PO 11/09/17 09:45 11/10/17 09:27 (Cozaar) 25 mg DAILY PO 11/09/17 09:45 11/10/17 09:27 (Lopressor) 25 mg BID PO 11/09/17 09:45 11/10/17 09:26 (Bumetanide) 2 mg BID@0900,1800 PO 11/09/17 13:15 11/10/17 09:27 (Neurontin) 800 mg BID PO 11/09/17 21:00 11/10/17 09:26 (Levemir Inj) 90 units HS SQ 11/09/17 21:00 11/09/17 21:52 (Aspirin Chew) 81 mg DAILY CHEW 11/10/17 09:00 11/10/17 09:27 (NovoLOG INJ) 22 units TIDAC SQ 11/09/17 17:00 11/10/17 12:46 (Duoneb Neb) 1 ampule Q4HR NEB PRN NEB 11/09/17 15:00 (Duoneb Neb) 1 ampule Q8HR WHILE AWAKE NEB NEB 11/09/17 16:00 11/10/17 08:56 (Heparin Inj) 5,000 units Q12HR SQ 11/09/17 21:00 11/10/17 09:26 Physical Exam Vital Signs Vital Signs Date Time Temp Pulse Resp B/P (MAP) Pulse Ox O2 Delivery O2 Flow Rate FiO2 11/10/17 12:00 98.5 60 20 118/57 (77) 95 11/10/17 08:56 Nasal Cannula 3.00 I/O 11/10/17 11/10/17 11/11/17 08:00 16:00 00:00 Intake Total 240 ml Balance 240 ml Mental Status Examination Appearance: Appropriate Consciousness: Alert Orientation: x4 Speech: Unremarkable Language: Adequate Fund of Knowledge: Inadequate Attention and Concentration: Adequate Memory: Unremarkable Mood: Appropriate Affect: Appropriate Thought Process & Associations: Intact, Logical, Linear Thought Content: Appropriate Hallucination Type: None, Visual Delusion Type: None Suicidal Ideation: No Suicidal Plan: No Suicidal Intention: No Homicidal Ideation: No Homicidal Plan: No Homicidal Intention: No Insight: Adequate Judgment: Adequate Assessment & Plan Problem List: (1) Delirium due to another medical condition ICD Codes: F05 - Delirium due to known physiological condition (2) SOB (shortness of breath) ICD Codes: R06.02 - Shortness of breath (3) Acute on chronic diastolic (congestive) heart failure ICD Codes: I50.33 - Acute on chronic diastolic (congestive) heart failure Assessment & Plan Patient is a 62-year-old -[place] woman, lives with keenan and his mother, with no formal past psychiatric history, past medical history significant for CHF, HTN, DM, COPD and CKD who is admitted for CHF exacerbation , chest pain who had been experiencing visual hallucinations for the past two weeks which psychiatry was consulted for evaluation. Patient likely experiencing visual hallucinations secondary to periods of delirium from respiratory/cardiac decompensation and unlikely due to a primary psychiatric etiology. There is no indication for any psychiatric intervention at this time. Continue recommendations as per primary medical team. Consult appreciated. Dov Segal MD Nov 10, 2017 15:59
[2017-11-10 16:51] LABS: BICARBONATE 32.9 MEQ/L (21.0-32.0); CALCIUM 8.8 MG/DL (8.5-10.1); CREATININE 3.17 MG/DL (0.50-1.00); MAGNESIUM 2.9 MG/DL (1.5-2.5); PHOSPHORUS 5.7 MG/DL (2.5-4.9)
[2017-11-10] MEDS: INSULIN DETEMIR 100 UNITS/ML VIAL SQ SCH (21:00)
[2017-11-11] VITALS (9 sets, daily range): BP systolic 103–118; BP diastolic 51–59; PULSE 58–76; RESP 18–20; TEMP 97.9–99.5; O2SAT 94–95
[2017-11-11] MEDS: RESP: ALBUTEROL 2.5 MG/IPRATROPIUM 0.5 MG NEB (SCH) NEB ×2 (07:39→16:00)
[2017-11-11] MEDS: METOPROLOL TARTRATE 25 MG TAB PO SCH ×2 (08:45→20:52)
[2017-11-11] MEDS: AMIODARONE 200 MG TAB PO SCH (08:45)
[2017-11-11] MEDS: BUMETANIDE 1 MG TAB PO SCH (08:45)
[2017-11-11] MEDS: LOSARTAN 25 MG TAB PO SCH (08:45)
[2017-11-11] MEDS: ASPIRIN 81 MG CHEW TAB CHEW SCH (08:46)
[2017-11-11] MEDS: GABAPENTIN 400 MG CAP PO SCH ×2 (08:46→20:52)
[2017-11-11] MEDS: ASPIRIN 325 MG TAB PO SCH (08:46)
[2017-11-11] MEDS: SODIUM CHLORIDE 0.9% FLUSH 10 ML FLUSH IV FLUSH SCH ×2 (08:47→20:52)
[2017-11-11] MEDS: INSULIN ASPART SUPPLEMENTAL SCALE SQ SCH ×4 (08:48→21:34)
[2017-11-11] MEDS: INSULIN ASPART 1,000 UNITS/10 ML VIAL SQ SCH ×3 (08:48→17:59)
[2017-11-11] MEDS: HEPARIN SODIUM - SQ 10,000 UNITS/ML VIAL SQ SCH ×2 (08:56→20:52)
[2017-11-11 10:12] LABS: BICARBONATE 30.8 MEQ/L (21.0-32.0); CALCIUM 8.9 MG/DL (8.5-10.1); CREATININE 3.54 MG/DL (0.50-1.00)
--- NOTE | 2017-11-11 12:29 | RADRPT ---
EXAM DATE/TIME: 11/11/2017 10:13 [place] COMPARISON: No previous studies available for comparison. EXTERNAL COMPARISON : [facility], US ABDOMEN COMPLETE, November 24, 2011 INDICATIONS : ZOE. MEDICAL HISTORY : Renal insufficiency, chronic. Hypertension. Chronic obstructive pulmonary disease. Congestive heart f ailure. Coronary artery disease. Hyperlipidemia. Diabetes. Myocardial infarction. Arthritis. Osteomye litis. Gout Anemia. Sleep apnea. SURGICAL HISTORY : Tubal ligation. CABG. Thoracentesis. ENCOUNTER: Initial ACUITY: 1 day PAIN SCORE: 0/10 LOCATION: Bilateral flank MEASUREMENTS: RIGHT KIDNEY: 12.0 x 5.8 x 5.5 cm LEFT KIDNEY: 11.9 x 4.6 x 4.7 cm FINDINGS: RIGHT KIDNEY: Renal cortex is normal in thickness and echotexture. No hydronephrosis, stone, or mass. LEFT KIDNEY: Renal cortex is normal in thickness and echotexture. No hydronephrosis, stone, or mass. BLADDER: Within normal limits given the degree of distension. CONCLUSION: No acute disease. Javon Botello MD on November 11, 2017 at 12:26 Board Certified Radiologist. This report was verified electronically.
--- NOTE | 2017-11-11 12:58 | PD.CARD.PN ---
Subjective Subjective Remarks No events overnight No chest pain, SOB stable Still seeing hallucinations Objective Medications Current Medications Medications (Trade) Dose Ordered Sig/Elder Route Start Time Stop Time Status Last Admin (NS Flush) 2 ml UNSCH PRN IV FLUSH 11/09/17 01:00 (NS Flush) 2 ml BID IV FLUSH 11/09/17 09:00 11/11/17 08:47 (Tylenol) 500 mg Q4H PRN PO 11/09/17 07:45 11/10/17 22:15 (Zofran Inj) 4 mg Q6H PRN IV PUSH 11/09/17 07:45 11/10/17 23:13 (Nitrostat Sl) 0.4 mg Q5M PRN SL 11/09/17 07:45 (D50w (Vial) Inj) 50 ml UNSCH PRN IV PUSH 11/09/17 09:30 (Glucagon Inj) 1 mg UNSCH PRN OTHER 11/09/17 09:30 (NovoLOG SUPPLEMENTAL SCALE) 1 ACHS SLIDING SCALE SQ 11/09/17 12:00 11/11/17 08:48 (Cordarone) 200 mg DAILY PO 11/09/17 09:45 11/11/17 08:45 (Cozaar) 25 mg DAILY PO 11/09/17 09:45 11/11/17 08:45 (Lopressor) 25 mg BID PO 11/09/17 09:45 11/11/17 08:45 (Bumetanide) 2 mg BID@0900,1800 PO 11/09/17 13:15 11/11/17 08:45 (Neurontin) 800 mg BID PO 11/09/17 21:00 11/11/17 08:46 (Levemir Inj) 90 units HS SQ 11/09/17 21:00 11/10/17 21:00 (Aspirin Chew) 81 mg DAILY CHEW 11/10/17 09:00 11/11/17 08:46 (NovoLOG INJ) 22 units TIDAC SQ 11/09/17 17:00 11/11/17 08:48 (Duoneb Neb) 1 ampule Q4HR NEB PRN NEB 11/09/17 15:00 (Duoneb Neb) 1 ampule Q8HR WHILE AWAKE NEB NEB 11/09/17 16:00 11/11/17 07:39 (Heparin Inj) 5,000 units Q12HR SQ 11/09/17 21:00 11/11/17 08:56 ([place]-Colace) 1 tab DAILY PO 11/12/17 09:00 (Dulcolax Supp) 8 mg DAILY PRN RECTAL 11/11/17 13:00 Vital Signs / I&O Vital Signs Date Time Temp Pulse Resp B/P (MAP) Pulse Ox O2 Delivery O2 Flow Rate FiO2 11/11/17 12:00 97.9 59 20 104/59 (74) 94 11/11/17 08:10 61 11/11/17 08:00 98.3 66 20 107/53 (71) 95 11/11/17 07:39 95 Nasal Cannula 3.00 11/11/17 04:00 98.0 60 18 103/57 (72) 95 11/11/17 04:00 Nasal Cannula 2.00 11/11/17 03:40 61 11/11/17 00:00 98.2 58 18 118/56 (76) 94 11/10/17 21:35 Nasal Cannula 2.00 11/10/17 20:00 98.1 61 20 147/63 (91) 95 11/10/17 16:00 98.6 56 20 118/54 (75) 94 I/O 11/10/17 11/10/17 11/10/17 11/11/17 11/11/17 11/11/17 07:00 15:00 23:00 07:00 15:00 23:00 Intake Total 240 ml 960 ml Output Total 150 ml Balance 240 ml 960 ml -150 ml Intake Oral 240 ml 960 ml Output Urine Total 150 ml # Voids 1 3 # Bowel Movements 0 Physical Exam GENERAL: NAD, AAOx3 SKIN: Warm and dry. HEAD: Atraumatic. Normocephalic. EYES: Pupils equal and round. No scleral icterus. No injection or drainage. ENT: No nasal bleeding or discharge. Mucous membranes pink and moist. NECK: Trachea midline. No JVD. CARDIOVASCULAR: Regular rate and rhythm. RESPIRATORY: No accessory muscle use. Decreased breath sounds bilaterally GASTROINTESTINAL: Abdomen soft, non-tender, nondistended. Hepatic and splenic margins not palpable. MUSCULOSKELETAL: Trace edema bilaterally NEUROLOGICAL: Awake and alert. No obvious cranial nerve deficits. Motor grossly within normal limits. Five out of 5 muscle strength in the arms and legs. Normal speech. PSYCHIATRIC: Appropriate mood and affect; insight and judgment normal. Laboratory Laboratory Tests Test 11/10/17 16:16 11/11/17 07:30 Blood Urea Nitrogen 67 MG/DL 74 MG/DL Creatinine 3.17 MG/DL 3.54 MG/DL Random Glucose 178 MG/DL 173 MG/DL Calcium Level 8.8 MG/DL 8.9 MG/DL Phosphorus Level 5.7 MG/DL Magnesium Level 2.9 MG/DL Sodium Level 137 MEQ/L 138 MEQ/L Potassium Level 4.7 MEQ/L 4.7 MEQ/L Chloride Level 96 MEQ/L 97 MEQ/L Carbon Dioxide Level 32.9 MEQ/L 30.8 MEQ/L Anion Gap 8 MEQ/L 10 MEQ/L Estimat Glomerular Filtration Rate 18 ML/MIN 16 ML/MIN B-Type Natriuretic Peptide 32 PG/ML Assessment and Plan Problem List: (1) CAD (coronary artery disease) ICD Codes: I25.10 - Atherosclerotic heart disease of [place] coronary artery without angina pectoris (2) Hx of CABG ICD Codes: Z95.1 - Presence of aortocoronary bypass graft (3) Hallucinations ICD Codes: R44.3 - Hallucinations, unspecified (4) SOB (shortness of breath) ICD Codes: R06.02 - Shortness of breath (5) Acute on chronic diastolic (congestive) heart failure ICD Codes: I50.33 - Acute on chronic diastolic (congestive) heart failure Assessment and Plan 1) Present mostly due to hallucinations, as she noted these before being intubated last time, so felt like this was a precursor Seen by psych, felt to be medical due to low oxygen levels 2) Acute on chronic diastolic heart failure Possibly due to salt indiscretion Con't low salt diet and fluid restriction Not diuresing well, creatinine increasing Nephrology consulted 3) Upon discharge, will follow up with her metal patternmaker apprentice, Cleve Shah DO Nov 11, 2017 12:58
[2017-11-11] MEDS ORDERED: BISACODYL 10 MG SUPP RECTAL PRN (13:00)
--- NOTE | 2017-11-11 13:02 | HHI.PR ---
Subjective Remarks Patient sleeping woke up to voice denies any pain She is on 3 L nasal cannula will try to wean that Objective Vitals Vital Signs Date Time Temp Pulse Resp B/P (MAP) Pulse Ox O2 Delivery O2 Flow Rate FiO2 11/11/17 12:00 97.9 59 20 104/59 (74) 94 11/11/17 08:10 61 11/11/17 08:00 98.3 66 20 107/53 (71) 95 11/11/17 07:39 95 Nasal Cannula 3.00 11/11/17 04:00 98.0 60 18 103/57 (72) 95 11/11/17 04:00 Nasal Cannula 2.00 11/11/17 03:40 61 11/11/17 00:00 98.2 58 18 118/56 (76) 94 11/10/17 21:35 Nasal Cannula 2.00 11/10/17 20:00 98.1 61 20 147/63 (91) 95 11/10/17 16:00 98.6 56 20 118/54 (75) 94 I/O 11/10/17 11/10/17 11/10/17 11/11/17 11/11/17 11/11/17 07:00 15:00 23:00 07:00 15:00 23:00 Intake Total 240 ml 960 ml Output Total 150 ml Balance 240 ml 960 ml -150 ml Intake Oral 240 ml 960 ml Output Urine Total 150 ml # Voids 1 3 # Bowel Movements 0 Result Diagram: 11/08/17 2130 11/11/17 0730 Objective Remarks GENERAL: This is a well-nourished, well-developed patient, in no apparent distress. SKIN: No rashes, warm and dry HEAD: Atraumatic. Normocephalic. EYES: PERRLA . No scleral icterus. ENT: No bleeding, or drainage, Airway patent. NECK: Trachea midline. Supple CARDIOVASCULAR: RRR, no gallops, or rubs. RESPIRATORY: Fair air entry bilaterally. No W, R, or R GASTROINTESTINAL: Abdomen soft, non-tender, nondistended. Positive bowel sounds MUSCULOSKELETAL: Extremities without clubbing, cyanosis, or edema. Pedal pulses appreciated NEUROLOGICAL: Awake and alert. Moves all extremity. Normal speech.no focal neurological deficit A/P Assessment and Plan 62-year-old female with history of CAD s/p 3vessel CABG, CHF, COPD on 3L NC, HTN , HLD, Diabetes, Anemia, CKD baseline creatinine around 2.0, presents with increasing shortness of breath, cough, edema, weight gain, and hallucinations over the past 2 weeks. The patient was recently admitted to [facility] 09/28-10/06 for acute renal failure, acute respiratory failure, CHF, fluid overload, possible pneumonia, s/p intubation on 09/29, discharged on Bumex 2mg bid for CHF. 11/10: Visual hallucination, pending psych eval, D/W cardiology no further intervention at this point 11/11: Patient is not allergic medicated today I discussed with the cellophane wrapping examiner , her creatinine increased to 3.2 will then initiate renal workup including renal ultrasound and consult nephrology A/P: Acute Diastolic CHF Exacerbation: prior records indicate history of diastolic CHF, however no echo on file. Patient with +SOB/BARAKAT, BLE edema. CXR reviewed with mild CHF. -continue patient's diuretic, Bumex 2mg po bid, difficult with diuresis secondary to CKD -continue patient's BB, ARB, aspirin -Monitor Is&Os, fluid/salt restrictions -Monitor on telemetry -Consult patient's Dry Mixer Dr. Escamilla Atypical Chest Pain with hx of CAD s/p CABG: suspect chest pain/SOB secondary to CHF as above. She had a nuclear stress test 4 months ago that was reportedly normal. -Rule out ACS with serial cardiac enzymes and EKGs -give aspirin, BB, nitro prn -monitor on telemetry -Cardiology consulted as above Hypertension: chronic -continue patient's home meds including cozaar, metoprolol, amiodarone -monitor BP, adjust antihypertensives as needed Diabetes Mellitus: chronic -continue patient's levemir 90u sq hs and Novolog 22u tidac -monitor accu-checks and cover with SSI COPD, Chronic Respiratory Failure on 3L NC at home: chronic, no wheezing on exam -continue duonebs q8h and q4h prn -O2 as needed -outpatient follow up with corporate officer Dr. Whitley. CKD, stage III: Cr 2.01, appears around baseline. Records from [facility] reviewed, baseline around 1.9. -avoid nephrotoxins, caution with diuresis -monitor renal function Hallucinations: patient reporting visual hallucinations. Possibly related to delirium, hypoxia; however eval for psychiatric etiology. -Psychiatry consulted , they did not think it psychogenic, attributed it to metabolic disturbance DVT Prophylaxis: Heparin sq Rigo Gutierrez MD Nov 11, 2017 13:02
[2017-11-11] MEDS ORDERED: SORBITOL 70% SOLN 30 ML CUP PO ONE (14:00)
--- NOTE | 2017-11-11 14:07 | PD.CONS ---
HPI Service Nephrology Consult Requested By Dr. Gutierrez Reason for Consult Acute renal failure on chronic kidney Primary Care Physician Unknown History of Present Illness Patient is a 62-year-old -[place] female with a history of obesity, coronary artery disease status post CABG, diabetes, hypertension, chronic kidney disease who was admitted with a creatinine around 2 0.01 and currently her creatinine has went up to 3.54, she is passing small amount of urine she has been taking Bumex 2 mg orally twice a day, patient was admitted with increasing shortness of breath, she states she is constipated and neurologist bloated and this is bothering her as well. Review of Systems Constitutional: COMPLAINS OF: Fatigue Respiratory: COMPLAINS OF: Shortness of breath Cardiovascular: COMPLAINS OF: Lower Extremity Edema Gastrointestinal: COMPLAINS OF: Abdominal pain, Constipation Musculoskeletal: COMPLAINS OF: Joint pain, Back pain Psychiatric: COMPLAINS OF: Anxiety Past Family Social History Allergies: Coded Allergies: No Known Allergies (Verified Allergy, Unknown, 11/09/17) Past Medical History CAD s/p 3vessel CABG CHF COPD on 3L NC HTN HLD Diabetes Diabetic Foot Ulcer Osteomyelitis Gout Anemia CKD baseline creatinine around 2.0 ATMI Obesity Past Surgical History CABG Thoracentesis Tubal Ligation Reported Medications Reported Meds & Active Scripts Active Novolog Inj (Insulin Aspart) 1,000 Unit/10 Ml Vial 22 Units SQ TIDAC Levemir Inj (Insulin Detemir) 1,000 unit/ 10 ML Vial 90 Units SQ HS 30 Days Do not mix with any other Insulin. Reported Fish Oil + D3 (Fish Oil-Cholecalciferol) 1,200-1,000 Mg-Unit Cap 1,000 Cap PO DAILY Multi For Her (Multiple Vitamins W/ Minerals) 18 Mg Iron-600 Mcg-80 Mcg Tab Aspirin 81 Mg Chew 81 Mg CHEW DAILY Gabapentin 800 Mg Tab 800 Mg PO TID Allopurinol 100 Mg Tab 100 Mg PO TID Bumetanide 2 Mg Tab 2 Mg PO BID Metoprolol Tartrate 25 Mg Tab 25 Mg PO BID Losartan (Losartan Potassium) 25 Mg Tab 25 Mg PO DAILY Amiodarone (Amiodarone HCl) 200 Mg Tab 200 Mg PO DAILY Active Ordered Medications Current Medications Medications (Trade) Dose Ordered Sig/Elder Route Start Time Stop Time Status Last Admin (NS Flush) 2 ml UNSCH PRN IV FLUSH 11/09/17 01:00 (NS Flush) 2 ml BID IV FLUSH 11/09/17 09:00 11/11/17 08:47 (Tylenol) 500 mg Q4H PRN PO 11/09/17 07:45 11/10/17 22:15 (Zofran Inj) 4 mg Q6H PRN IV PUSH 11/09/17 07:45 11/10/17 23:13 (Nitrostat Sl) 0.4 mg Q5M PRN SL 11/09/17 07:45 (D50w (Vial) Inj) 50 ml UNSCH PRN IV PUSH 11/09/17 09:30 (Glucagon Inj) 1 mg UNSCH PRN OTHER 11/09/17 09:30 (NovoLOG SUPPLEMENTAL SCALE) 1 ACHS SLIDING SCALE SQ 11/09/17 12:00 11/11/17 13:16 (Cordarone) 200 mg DAILY PO 11/09/17 09:45 11/11/17 08:45 (Cozaar) 25 mg DAILY PO 11/09/17 09:45 11/11/17 08:45 (Lopressor) 25 mg BID PO 11/09/17 09:45 11/11/17 08:45 (Bumetanide) 2 mg BID@0900,1800 PO 11/09/17 13:15 11/11/17 08:45 (Neurontin) 800 mg BID PO 11/09/17 21:00 11/11/17 08:46 (Levemir Inj) 90 units HS SQ 11/09/17 21:00 11/10/17 21:00 (Aspirin Chew) 81 mg DAILY CHEW 11/10/17 09:00 11/11/17 08:46 (NovoLOG INJ) 22 units TIDAC SQ 11/09/17 17:00 11/11/17 13:16 (Duoneb Neb) 1 ampule Q4HR NEB PRN NEB 11/09/17 15:00 (Duoneb Neb) 1 ampule Q8HR WHILE AWAKE NEB NEB 11/09/17 16:00 11/11/17 07:39 (Heparin Inj) 5,000 units Q12HR SQ 11/09/17 21:00 11/11/17 08:56 ([place]-Colace) 1 tab DAILY PO 11/12/17 09:00 (Dulcolax Supp) 8 mg DAILY PRN RECTAL 11/11/17 13:00 11/11/17 13:16 Family History Noncontributory Social History Denies smoking used to smoke in the past moderate alcohol Physical Exam Vital Signs Vital Signs Date Time Temp Pulse Resp B/P (MAP) Pulse Ox O2 Delivery O2 Flow Rate FiO2 11/11/17 12:00 97.9 59 20 104/59 (74) 94 11/11/17 08:10 61 11/11/17 08:00 98.3 66 20 107/53 (71) 95 11/11/17 07:39 95 Nasal Cannula 3.00 11/11/17 04:00 98.0 60 18 103/57 (72) 95 11/11/17 04:00 Nasal Cannula 2.00 11/11/17 03:40 61 11/11/17 00:00 98.2 58 18 118/56 (76) 94 11/10/17 21:35 Nasal Cannula 2.00 11/10/17 20:00 98.1 61 20 147/63 (91) 95 11/10/17 16:00 98.6 56 20 118/54 (75) 94 Physical Exam GENERAL: Well-nourished, well-developed patient. SKIN: Warm and dry. HEAD: Normocephalic. EYES: No scleral icterus. No injection or drainage. NECK: Supple, trachea midline. No JVD or lymphadenopathy. CARDIOVASCULAR: Regular rate and rhythm without murmurs, gallops, or rubs. RESPIRATORY: Breath sounds diminished at bases GASTROINTESTINAL: Abdomen soft, n mildly distended. Bowel sounds are present EXTREMITIES: No cyanosis, mild edema. NEUROLOGICAL: Awake, alert, and oriented x 3. Non-focal. Laboratory Laboratory Tests Test 11/10/17 16:16 11/11/17 07:30 Blood Urea Nitrogen 67 74 Creatinine 3.17 3.54 Random Glucose 178 173 Calcium Level 8.8 8.9 Phosphorus Level 5.7 Magnesium Level 2.9 Sodium Level 137 138 Potassium Level 4.7 4.7 Chloride Level 96 97 Carbon Dioxide Level 32.9 30.8 Anion Gap 8 10 Estimat Glomerular Filtration Rate 18 16 B-Type Natriuretic Peptide 32 Result Diagram: 11/08/17212911/11/17 0730 Imaging Last Impressions Chest X-Ray 11/08/172035 Signed Impressions: Service Date/Time: October 20:50 - CONCLUSION: 1. Mild congestive heart failure. Issac Sullivan MD Assessment and Plan Problem List: (1) Acute on chronic diastolic (congestive) heart failure ICD Codes: I50.33 - Acute on chronic diastolic (congestive) heart failure Status: Acute Plan: Patient has worsening creatinine discontinue diuretics and give her 5% albumin every 12 hourly She is constipated will give her sorbitol 60 mL and then 30 mL per day Continue to monitor her progress Monitor urine output Follow renal function Ultrasound kidney did not reveal obstructive uropathy Avoid nephrotoxic agent (2) Diabetes ICD Codes: E11.9 - Type 2 diabetes mellitus without complications Plan: Patient on insulin coverage (3) SOB (shortness of breath) ICD Codes: R06.02 - Shortness of breath Plan: Multifactorial in might be early congestive heart failure continue to monitor (4) CAD (coronary artery disease) ICD Codes: I25.10 - Atherosclerotic heart disease of [place] coronary artery without angina pectoris (5) Hx of CABG ICD Codes: Z95.1 - Presence of aortocoronary bypass graft Plan: Cardiology is following (6) Alkalosis, metabolic ICD Codes: E87.3 - Alkalosis Plan: Patient appears to have dehydration leading to alkalosis Problem Qualifiers (1) Diabetes: Kike Stewart MD Nov 11, 2017 14:07
[2017-11-11] MEDS: ALBUMIN 5% INJ 500 ML IV SCH (16:19)
[2017-11-11] MEDS: INSULIN DETEMIR 100 UNITS/ML VIAL SQ SCH (21:34)
[2017-11-12] VITALS (15 sets, daily range): BP systolic 111–141; BP diastolic 56–80; PULSE 56–65; RESP 18–20; TEMP 97.9–99.3; O2SAT 91–98
[2017-11-12 00:49] LABS: BACTERIA, URINE RARE /hpf; BILIRUBIN, URINE NEG (NEG); BLOOD, URINE NEG (NEG); CALCIUM OXALATE CRYSTALS,URINE RARE /hpf; GLUCOSE,URINE NEG (NEG); HYALINE CAST, URINE 90 /lpf (RARE); KETONE, URINE NEG (NEG); MUCUS URINE FEW /lpf (OCC); NITRITE,URINE NEG (NEG); SQUAMOUS EPITHELIAL CELL URINE 2 /hpf (0-5); URINE COLOR YELLOW (YELLW/STRAW); URINE LEUKOCYTE ESTERASE TRACE (NEG)
[2017-11-12 00:51] LABS: CREATININE, RANDOM URINE 197.9 MG/DL
[2017-11-12] MEDS: ALBUMIN 5% INJ 500 ML IV SCH (03:14)
[2017-11-12] MEDS: ACETAMINOPHEN 500 MG CPLT PO PRN ×2 (05:24→10:49)
[2017-11-12] MEDS: RESP: ALBUTEROL 2.5 MG/IPRATROPIUM 0.5 MG NEB (SCH) NEB ×2 (07:35→15:30)
[2017-11-12] MEDS: SORBITOL 70% SOLN 30 ML CUP PO SCH (09:00)
[2017-11-12] MEDS: ASPIRIN 81 MG CHEW TAB CHEW SCH (09:49)
[2017-11-12] MEDS: AMIODARONE 200 MG TAB PO SCH (09:49)
[2017-11-12] MEDS: METOPROLOL TARTRATE 25 MG TAB PO SCH ×2 (09:49→20:30)
[2017-11-12] MEDS: GABAPENTIN 400 MG CAP PO SCH (09:49)
[2017-11-12] MEDS: LOSARTAN 25 MG TAB PO SCH (09:49)
[2017-11-12] MEDS: DOCUSATE SODIUM 50 MG/SENNA 8.6 MG TAB PO SCH (09:49)
[2017-11-12] MEDS: HEPARIN SODIUM - SQ 10,000 UNITS/ML VIAL SQ SCH ×2 (09:50→20:30)
[2017-11-12] MEDS: INSULIN ASPART 1,000 UNITS/10 ML VIAL SQ SCH ×3 (09:50→18:58)
[2017-11-12] MEDS: SODIUM CHLORIDE 0.9% FLUSH 10 ML FLUSH IV FLUSH SCH ×2 (09:51→20:30)
[2017-11-12] MEDS: INSULIN ASPART SUPPLEMENTAL SCALE SQ SCH ×4 (09:51→20:29)
--- NOTE | 2017-11-12 12:16 | HHI.PR ---
Subjective Remarks I received a call from the nurse patient is having urinary obstruction bladder scan revealed 2 90 cc Appreciate refused Kim catheter but then later on she was able to urinate twice 100 cc each However when I saw the patient was sitting on the edge of the bed she had tremor all her body, trying to walk her she seems to be ataxic no nystagmus Her friend was at the bedside her friend also a patient of Dr. Stewart on dialysis Objective Vitals Vital Signs Date Time Temp Pulse Resp B/P (MAP) Pulse Ox O2 Delivery O2 Flow Rate FiO2 11/12/17 08:27 65 11/12/17 08:00 98.1 61 20 134/57 (82) 95 11/12/17 07:38 96 Nasal Cannula 3.00 11/12/17 04:00 56 11/12/17 04:00 Nasal Cannula 3.00 11/12/17 03:17 97.9 62 20 141/80 (100) 94 11/12/17 00:57 59 11/12/17 00:00 99.3 61 18 130/58 (82) 95 11/11/17 21:30 Nasal Cannula 2.00 11/11/17 20:00 76 11/11/17 20:00 99.5 65 20 113/56 (75) 94 11/11/17 16:00 64 11/11/17 16:00 99.5 66 20 103/51 (68) 94 I/O 11/11/17 11/11/17 11/11/17 11/12/17 11/12/17 11/12/17 07:00 15:00 23:00 07:00 15:00 23:00 Intake Total 980 ml 980 ml Output Total 150 ml 65 ml Balance -150 ml 980 ml 915 ml Intake Oral 480 ml 480 ml IV Total 500 ml 500 ml Output Urine Total 150 ml 60 ml Stool Total 5 ml Bladder Scan Volume Amount 292 ml # Voids 2 # Bowel Movements 4 Result Diagram: 11/08/170 11/11/17 0730 Objective Remarks - GENERAL: This is a well-nourished, well-developed patient, in no apparent distress. SKIN: No rashes, warm and dry HEAD: Atraumatic. Normocephalic. EYES: PERRLA . No scleral icterus. ENT: No bleeding, or drainage, Airway patent. NECK: Trachea midline. Supple CARDIOVASCULAR: RRR, no gallops, or rubs. RESPIRATORY: Fair air entry bilaterally. No W, R, or R GASTROINTESTINAL: Abdomen soft, non-tender, nondistended. Positive bowel sounds MUSCULOSKELETAL: Extremities without clubbing, cyanosis, or edema. Pedal pulses appreciated NEUROLOGICAL: Awake and alert. Moves all extremity. Noticed shaking/tremor/ ataxia, no nystagmus cranial nerve II-12 intact A/P Assessment and Plan 62-year-old female with history of CAD s/p 3vessel CABG, CHF, COPD on 3L NC, HTN , HLD, Diabetes, Anemia, CKD baseline creatinine around 2.0, presents with increasing shortness of breath, cough, edema, weight gain, and hallucinations over the past 2 weeks. The patient was recently admitted to [facility] 09/28-10/06 for acute renal failure, acute respiratory failure, CHF, fluid overload, possible pneumonia, s/p intubation on 09/29, discharged on Bumex 2mg bid for CHF. 11/10: Visual hallucination, pending psych eval, D/W cardiology no further intervention at this point 11/11: Patient is not allergic medicated today I discussed with the woodworker helper , her creatinine increased to 3.2 will then initiate renal workup including renal ultrasound and consult nephrology 11/12: Patient stated she still having hallucination, today with tremor and ataxia, urinary obstructions> I will check CT of the head, patient is on Neurontin will put this on hold and check the level, Neurontin can cause tremor , will check ammonia level, vitamin D 12 and B-6, consult neurology for hallucination and tremor. Appreciate renal consult recommended making diuresing every other day, giving albumin and monitor renal function Kim catheter, consider consulting urology for urinary obstruction A/P: Acute Diastolic CHF Exacerbation: prior records indicate history of diastolic CHF, however no echo on file. Patient with +SOB/BARAKAT, BLE edema. CXR reviewed with mild CHF. -continue patient's diuretic, Bumex 2mg po bid, difficult with diuresis secondary to CKD -continue patient's BB, ARB, aspirin -Monitor Is&Os, fluid/salt restrictions -Monitor on telemetry -Consult patient's Miner Assistant Dr. Escamilla Atypical Chest Pain with hx of CAD s/p CABG: suspect chest pain/SOB secondary to CHF as above. She had a nuclear stress test 4 months ago that was reportedly normal. -Rule out ACS with serial cardiac enzymes and EKGs -give aspirin, BB, nitro prn -monitor on telemetry -Cardiology consulted as above Hypertension: chronic -continue patient's home meds including cozaar, metoprolol, amiodarone -monitor BP, adjust antihypertensives as needed Diabetes Mellitus: chronic -continue patient's levemir 90u sq hs and Novolog 22u tidac -monitor accu-checks and cover with SSI COPD, Chronic Respiratory Failure on 3L NC at home: chronic, no wheezing on exam -continue duonebs q8h and q4h prn -O2 as needed -outpatient follow up with trolley collector Dr. Whitley. CKD, stage III: Cr 2.01, appears around baseline. Records from [facility] reviewed, baseline around 1.9. -avoid nephrotoxins, caution with diuresis -monitor renal function Hallucinations: patient reporting visual hallucinations. Possibly related to delirium, hypoxia; however eval for psychiatric etiology. -Psychiatry consulted , they did not think it psychogenic, attributed it to metabolic disturbance DVT Prophylaxis: Heparin sq Rigo Gutierrez MD Nov 12, 2017 12:16
--- NOTE | 2017-11-12 15:13 | HHI.NPPN ---
Subjective History of Present Illness 62-year-old female with diabetes, acute and chronic kidney disease, CHF Interval History Patient has lower urine output Kim catheter is placed patient is pulling it out, she is short of breath Objective Data Data 11/12/17 11/13/17 19:00 07:00 Intake Total 360 ml Balance 360 ml Intake Oral 360 ml Bladder Scan Volume Amount 292 ml # Voids 3 Vital Signs Date Time Temp Pulse Resp B/P (MAP) Pulse Ox O2 Delivery O2 Flow Rate FiO2 11/12/17 12:00 98.2 60 20 117/59 (78) 91 11/12/17 11:46 60 11/12/17 08:27 65 11/12/17 08:00 98.1 61 20 134/57 (82) 95 11/12/17 07:38 96 Nasal Cannula 3.00 11/12/17 04:00 56 11/12/17 04:00 Nasal Cannula 3.00 11/12/17 03:17 97.9 62 20 141/80 (100) 94 11/12/17 00:57 59 11/12/17 00:00 99.3 61 18 130/58 (82) 95 11/11/17 21:30 Nasal Cannula 2.00 11/11/17 20:00 76 11/11/17 20:00 99.5 65 20 113/56 (75) 94 11/11/17 16:00 64 11/11/17 16:00 99.5 66 20 103/51 (68) 94 -: 11/08/17 2130 11/11/17 0730 Physical Exam General Appearance: Well Developed, Well Nourished, Obese Neck Neck Exam: Trachea Midline Pulmonary Resp Exam: Crackles, Rhonchi, Decreased Bases Cardiology CV Exam: Regular Gastrointestinal/Abdomen GI Exam: Soft, Non-Tender, Bowel Sounds Present Extremeties Extremities Exam: Moderate Edema Assessment/Plan Problem List: (1) Acute on chronic diastolic (congestive) heart failure ICD Codes: I50.33 - Acute on chronic diastolic (congestive) heart failure Status: Acute Plan: Patient has worsening creatinine no labs for urine Diuretics Lasix 80 mg then 40 mg every 12 hourly ordered , stop 5% albumin every 12 hourly She was constipated this was relieved Hemodialysis discussed with her as she is volume overloaded difficult for her to breathe short of breath Condition worsening Stat labs ordered Vas-Cath ordered dialysis discussed as UOP low , she is agreeable to proceed Secondary hyperparathyroidism and vitamin D 3 5000 units daily add PhosLo and Nephrocaps (2) Diabetes ICD Codes: E11.9 - Type 2 diabetes mellitus without complications Plan: Patient on insulin coverage (3) SOB (shortness of breath) ICD Codes: R06.02 - Shortness of breath Plan: Multifactorial in might be early congestive heart failure continue to monitor (4) CAD (coronary artery disease) ICD Codes: I25.10 - Atherosclerotic heart disease of [place] coronary artery without angina pectoris (5) Hx of CABG ICD Codes: Z95.1 - Presence of aortocoronary bypass graft Plan: Cardiology is following (6) Alkalosis, metabolic ICD Codes: E87.3 - Alkalosis Plan: Patient appears to have dehydration leading to alkalosis Problem Qualifiers (1) Diabetes: Kike Stewart MD Nov 12, 2017 15:13
[2017-11-12] MEDS ORDERED: SODIUM CHLOR 0.9% 1000 ML INJ 1,000 ML OTHER PRN ×2 (15:26)
[2017-11-12] MEDS ORDERED: SODIUM CHLOR 0.9% 1000 ML INJ 1,000 ML IV PRN (15:26)
[2017-11-12] MEDS ORDERED: ALBUMIN 25% INJ 100 ML IV PRN (15:30)
[2017-11-12] MEDS ORDERED: MANNITOL 12.5 GM/50 ML VIAL IV PRN (15:30)
[2017-11-12] MEDS ORDERED: NITROGLYCERIN 0.4 MG SL 25 TABS/BTL SL PRN (15:30)
[2017-11-12] MEDS ORDERED: SODIUM CHLORIDE 0.9% FLUSH 10 ML FLUSH IV FLUSH PRN ×2 (15:30→18:00)
[2017-11-12] MEDS ORDERED: GELATIN 12 MM/7 MM FOAM TOP PRN (15:30)
[2017-11-12] MEDS ORDERED: HEPARIN SODIUM - IV 10,000 UNITS/10 ML VIAL IV FLUSH PRN (15:30)
[2017-11-12] MEDS ORDERED: diphenhydrAMINE HCL 25 MG CAP PO PRN (15:30)
[2017-11-12] MEDS ORDERED: cloNIDine HCL 0.1 MG TAB PO PRN (15:30)
[2017-11-12] MEDS ORDERED: ONDANSETRON HCL 4 MG/2 ML VIAL IV PUSH PRN (15:30)
[2017-11-12] MEDS: CHOLECALCIFEROL (VIT D3) 5000 UNIT CAP PO SCH (15:58)
[2017-11-12] MEDS ORDERED: FUROSEMIDE 100 MG/10 ML VIAL IV PUSH ONE (16:00)
[2017-11-12 16:35] LABS: HEMATOCRIT 31.3 % (35.0-46.0); HEMOGLOBIN 9.7 GM/DL (11.6-15.3); MEAN CORPUSCULAR HEMOGLOBIN 25.9 PG (27.0-34.0); MEAN CORPUSCULAR HGB CONC 30.8 % (32.0-36.0); MEAN PLATELET VOLUME 9.2 FL (7.0-11.0); PLATELET COUNT 237 TH/MM3 (150-450); RED BLOOD COUNT 3.73 MIL/MM3 (4.00-5.30); RED CELL DISTRIBUTION WIDTH 17.7 % (11.6-17.2); WHITE BLOOD COUNT 5.4 TH/MM3 (4.0-11.0)
[2017-11-12 16:58] LABS: BICARBONATE 32.4 MEQ/L (21.0-32.0); CALCIUM 8.6 MG/DL (8.5-10.1); CREATININE 3.64 MG/DL (0.50-1.00)
[2017-11-12] MEDS ORDERED: HEPARIN SODIUM - IV 2,000 UNITS/2 ML VIAL IV FLUSH PRN (18:00)
--- NOTE | 2017-11-12 18:02 | RADRPT ---
EXAM DATE/TIME: 11/12/2017 17:46 [facility] COMPARISON: No previous studies available for comparison. INDICATIONS : Hallucinations. Tremors. RADIATION DOSE: 45.25 CTDIvol (mGy) MEDICAL HISTORY : Cardiovascular disease. Hypertension. Chronic obstructive pulmonary disease.Diabetes. SURGICAL HISTORY : Tubal ligation. ENCOUNTER: Initial ACUITY: 1 day PAIN SCALE: 0/10 LOCATION: cranial TECHNIQUE: Multiple contiguous axial images were obtained of the head. Using automated exposure control and adj ustment of the mA and/or kV according to patient size, radiation dose was kept as low as reasonably a chievable to obtain optimal diagnostic quality images. DICOM format image data is available electro nically for review and comparison. FINDINGS: CEREBRUM: The ventricles are normal for age. No evidence of midline shift, mass lesion, hemorrhage or acute in farction. No extra-axial fluid collections are seen. POSTERIOR FOSSA: The cerebellum and brainstem are intact. The 4th ventricle is midline. The cerebellopontine angle i s unremarkable. EXTRACRANIAL: The visualized portion of the orbits is intact. SKULL: The calvaria is intact. No evidence of skull fracture. CONCLUSION: Normal examination. Darryl David MD on November 12, 2017 at 17:58 Board Certified Radiologist. This report was verified electronically.
--- NOTE | 2017-11-12 18:03 | RADRPT ---
EXAM DATE/TIME: 11/12/2017 16:29 [facility] COMPARISON: No previous studies available for comparison. INDICATIONS : Patient with a history of chronic kidney disease MEDICAL HISTORY : CHF COPD HTN Diabetes CAD Cardiomyopathy Chronic kidney disease SURGICAL HISTORY : CABG X3 ENCOUNTER: Initial ACUITY: 2 days PAIN SCORE: 6/10 LOCATION: low back FLUORO TIME: 0.2 minutes IMAGE SERIES: 0 ACCESS: Right internal jugular vein DEVICE(S): 1.) 14 [place] dual lumen 15 cm Vas Cath PROCEDURE : 1. Ultrasound guided venipuncture. 2. Fluoroscopic guidance. 3. Central line placement. The risks, benefits and alternatives to the procedure were explained and verbal and written consent w as obtained. The site was prepped in sterile fashion. Full sterile technique was used, including ca p, mask, sterile gloves and gown and a large sterile sheet. Hand hygiene and 2% chlorhexidine prep w as utilized per protocol for cutaneous antisepsis with appropriate dry time for site. Sterile gel an d sterile probe cover were utilized for ultrasound guidance. The skin and subcutaneous tissues were infiltrated with local anesthetic solution. A suitable site a francoise the vein was selected with ultrasound and fluoroscopic guidance. A small incision was made. Th e vein was accessed under direct ultrasound visualization using the micropuncture technique. The sunil ropuncture set was exchanged for a 0.035 wire. The tract was dilated. The catheter was advanced int o position under direct fluoroscopic visualization. The catheter was fixed in place with suture and a sterile dressing was applied. The patient tolerated the procedure well and there were no complications. CONCLUSION: Uncomplicated ultrasound and fluoroscopic guided central venous hemodialysis catheter placement as above Darryl David MD on November 12, 2017 at 18:00 Board Certified Radiologist. This report was verified electronically.
[2017-11-12] MEDS: CALCIUM ACETATE 667 MG CAP PO SCH (18:46)
[2017-11-12] MEDS: FUROSEMIDE 40 MG/4 ML VIAL IV PUSH SCH (18:47)
[2017-11-12] MEDS: INSULIN DETEMIR 100 UNITS/ML VIAL SQ SCH (20:29)
[2017-11-12] MEDS: ACETAMINOPHEN 325 MG TAB PO PRN (20:42)
[2017-11-13] VITALS (10 sets, daily range): BP systolic 102–148; BP diastolic 56–78; PULSE 55–65; RESP 19–20; TEMP 97.5–98.7; O2SAT 91–96
[2017-11-13] MEDS: ACETAMINOPHEN 500 MG CPLT PO PRN ×4 (00:34→22:13)
[2017-11-13] MEDS: RESP: ALBUTEROL 2.5 MG/IPRATROPIUM 0.5 MG NEB (SCH) NEB ×2 (07:46→16:03)
[2017-11-13] MEDS: SODIUM CHLORIDE 0.9% FLUSH 10 ML FLUSH IV FLUSH SCH ×2 (07:52→21:40)
[2017-11-13 08:12] LABS: BICARBONATE 27.8 MEQ/L (21.0-32.0); CALCIUM 8.5 MG/DL (8.5-10.1); CREATININE 3.43 MG/DL (0.50-1.00); MAGNESIUM 2.5 MG/DL (1.5-2.5); PHOSPHORUS 4.4 MG/DL (2.5-4.9)
--- NOTE | 2017-11-13 08:12 | HHI.PR ---
Subjective Remarks pt denies chest pain, has SOB Objective Vital Signs Date Time Temp Pulse Resp B/P (MAP) Pulse Ox O2 Delivery O2 Flow Rate FiO2 11/13/17 07:46 96 Nasal Cannula 3.00 11/13/17 04:00 98.2 56 19 102/64 (77) 93 11/13/17 04:00 56 11/13/17 03:58 Nasal Cannula 3.00 11/13/17 00:00 98.1 58 19 122/58 (79) 95 11/12/17 23:45 98.1 58 20 122/58 (79) 91 11/12/17 20:50 97.9 62 20 128/58 (81) 92 11/12/17 20:00 98.7 61 18 134/73 (93) 98 11/12/17 20:00 Nasal Cannula 3.00 11/12/17 18:36 56 111/56 (74) 11/12/17 16:00 98.1 60 20 122/58 (79) 95 11/12/17 15:31 59 11/12/17 15:00 Nasal Cannula 3.00 11/12/17 12:00 98.2 60 20 117/59 (78) 91 11/12/17 11:46 60 11/12/17 08:27 65 I/O 11/12/17 11/12/17 11/12/17 11/13/17 11/13/17 11/13/17 07:00 15:00 23:00 07:00 15:00 23:00 Intake Total 980 ml 360 ml 100 ml Output Total 65 ml 400 ml Balance 915 ml 360 ml -300 ml Intake Oral 480 ml 360 ml 100 ml IV Total 500 ml Output Urine Total 60 ml 400 ml Stool Total 5 ml Bladder Scan Volume Amount 292 ml # Voids 3 CHEST : Rales B/L Heart: S1,S2,RRR ABD: ST Distended Ext: edema Result Diagram: 11/12/17 1605 11/12/17 1605 Assessment and Plan Assessment and Plan Pt will undergo HD today. continue current management. I will follow Jake Escamilla MD Nov 13, 2017 08:12
[2017-11-13] MEDS: CHOLECALCIFEROL (VIT D3) 5000 UNIT CAP PO SCH (08:26)
[2017-11-13] MEDS: ACETAMINOPHEN 325 MG TAB PO PRN (08:26)
[2017-11-13] MEDS: ASPIRIN 81 MG CHEW TAB CHEW SCH (08:26)
[2017-11-13] MEDS: METOPROLOL TARTRATE 25 MG TAB PO SCH ×2 (08:27→21:38)
[2017-11-13] MEDS: DOCUSATE SODIUM 50 MG/SENNA 8.6 MG TAB PO SCH (08:27)
[2017-11-13] MEDS: CALCIUM ACETATE 667 MG CAP PO SCH ×3 (08:27→17:05)
[2017-11-13] MEDS: HEPARIN SODIUM - SQ 10,000 UNITS/ML VIAL SQ SCH ×2 (08:27→21:39)
[2017-11-13] MEDS: FUROSEMIDE 40 MG/4 ML VIAL IV PUSH SCH ×2 (08:27→17:05)
[2017-11-13] MEDS: AMIODARONE 200 MG TAB PO SCH (08:27)
[2017-11-13] MEDS: VITAMIN B CMPLX/VITC/FOLIC AC CAP PO SCH (08:28)
[2017-11-13] MEDS: INSULIN ASPART 1,000 UNITS/10 ML VIAL SQ SCH ×3 (08:28→16:34)
[2017-11-13] MEDS: SORBITOL 70% SOLN 30 ML CUP PO SCH (08:28)
[2017-11-13] MEDS: INSULIN ASPART SUPPLEMENTAL SCALE SQ SCH ×4 (08:29→21:40)
[2017-11-13] MEDS: LOSARTAN 25 MG TAB PO SCH (08:30)
[2017-11-13] MEDS: GENTAMICIN SULFATE 20 MG/2 ML VIAL OTHER PRN (11:32)
[2017-11-13] MEDS: HEPARIN SODIUM - IV 10,000 UNITS/10 ML VIAL PRN (11:32)
[2017-11-13] MEDS: LACTULOSE SYRUP 20 GM/30 ML CUP PO SCH ×2 (13:03→17:05)
--- NOTE | 2017-11-13 14:26 | HHI.NPPN ---
Subjective History of Present Illness 62-year-old female with diabetes, acute and chronic kidney disease, CHF Objective Data Data 11/13/17 11/14/17 19:00 07:00 Output Total 1000 ml Balance -1000 ml Hemodialysis 1000 ml # Voids 1 Vital Signs Date Time Temp Pulse Resp B/P (MAP) Pulse Ox O2 Delivery O2 Flow Rate FiO2 11/13/17 12:00 98.1 60 20 120/56 (77) 94 11/13/17 08:00 97.5 55 20 114/57 (76) 95 11/13/17 07:46 96 Nasal Cannula 3.00 11/13/17 04:00 98.2 56 19 102/64 (77) 93 11/13/17 04:00 56 11/13/17 03:58 Nasal Cannula 3.00 11/13/17 00:00 98.1 58 19 122/58 (79) 95 11/12/17 23:45 98.1 58 20 122/58 (79) 91 11/12/17 20:50 97.9 62 20 128/58 (81) 92 11/12/17 20:00 98.7 61 18 134/73 (93) 98 11/12/17 20:00 Nasal Cannula 3.00 11/12/17 18:36 56 111/56 (74) 11/12/17 16:00 98.1 60 20 122/58 (79) 95 11/12/17 15:31 59 11/12/17 15:00 Nasal Cannula 3.00 -: 11/12/17 1605 11/13/17 0715 Physical Exam General Appearance: Well Developed, Well Nourished, Obese Neck Neck Exam: Trachea Midline Pulmonary Resp Exam: Crackles, Rhonchi, Decreased Bases Cardiology CV Exam: Regular Gastrointestinal/Abdomen GI Exam: Soft, Non-Tender, Bowel Sounds Present Extremeties Extremities Exam: Moderate Edema Assessment/Plan Problem List: (1) Acute on chronic diastolic (congestive) heart failure ICD Codes: I50.33 - Acute on chronic diastolic (congestive) heart failure Status: Acute Plan: Patient has worsening creatinine Hemodialysis 1l off she is volume overloaded difficult for her to breathe short of breath on Lasix UOP Low Secondary hyperparathyroidism and vitamin D 3 5000 units daily add PhosLo and Nephrocaps (2) Diabetes ICD Codes: E11.9 - Type 2 diabetes mellitus without complications Plan: Patient on insulin coverage (3) SOB (shortness of breath) ICD Codes: R06.02 - Shortness of breath Plan: Multifactorial in might be early congestive heart failure continue to monitor (4) CAD (coronary artery disease) ICD Codes: I25.10 - Atherosclerotic heart disease of [place] coronary artery without angina pectoris (5) Hx of CABG ICD Codes: Z95.1 - Presence of aortocoronary bypass graft Plan: Cardiology is following (6) Alkalosis, metabolic ICD Codes: E87.3 - Alkalosis Plan: Patient appears to have dehydration leading to alkalosis Problem Qualifiers (1) Diabetes: Kike Stewart MD Nov 13, 2017 14:26
--- NOTE | 2017-11-13 18:16 | HHI.PR ---
Subjective Remarks Patient seen and examined sitting on the edge of the bed, her daughter at the bedside cleaning her up. Patient looks definitely better than yesterday less shaking more awake and alert Ammonia level was 45 The decision was by nephrology to start hemodialysis. Patient also tells me that she feels much better today as far as the tremor and shaking and she attributed it to that we stopped her Neurontin Objective Vitals Vital Signs Date Time Temp Pulse Resp B/P (MAP) Pulse Ox O2 Delivery O2 Flow Rate FiO2 11/13/17 16:00 97.5 57 20 133/65 (87) 91 11/13/17 12:00 98.1 60 20 120/56 (77) 94 11/13/17 11:28 61 11/13/17 08:00 97.5 55 20 114/57 (76) 95 11/13/17 07:51 65 11/13/17 07:46 96 Nasal Cannula 3.00 11/13/17 04:00 98.2 56 19 102/64 (77) 93 11/13/17 04:00 56 11/13/17 03:58 Nasal Cannula 3.00 11/13/17 00:00 98.1 58 19 122/58 (79) 95 11/12/17 23:45 98.1 58 20 122/58 (79) 91 11/12/17 20:50 97.9 62 20 128/58 (81) 92 11/12/17 20:00 98.7 61 18 134/73 (93) 98 11/12/17 20:00 Nasal Cannula 3.00 11/12/17 18:36 56 111/56 (74) I/O 11/12/17 11/12/17 11/12/17 11/13/17 11/13/17 11/13/17 07:00 15:00 23:00 07:00 15:00 23:00 Intake Total 980 ml 360 ml 100 ml Output Total 65 ml 400 ml 1000 ml Balance 915 ml 360 ml -300 ml -1000 ml Intake Oral 480 ml 360 ml 100 ml IV Total 500 ml Output Urine Total 60 ml 400 ml Stool Total 5 ml Hemodialysis 1000 ml Bladder Scan Volume Amount 292 ml # Voids 3 1 Result Diagram: 11/12/17 1605 11/13/17 0715 Objective Remarks - GENERAL: This is a well-nourished, well-developed patient, in no apparent distress. SKIN: No rashes, warm and dry HEAD: Atraumatic. Normocephalic. EYES: PERRLA . No scleral icterus. ENT: No bleeding, or drainage, Airway patent. NECK: Trachea midline. Supple CARDIOVASCULAR: RRR, no gallops, or rubs. RESPIRATORY: Fair air entry bilaterally. No W, R, or R GASTROINTESTINAL: Abdomen soft, non-tender, nondistended. Positive bowel sounds MUSCULOSKELETAL: Extremities without clubbing, cyanosis, or edema. Pedal pulses appreciated NEUROLOGICAL: Awake and alert. Moves all extremity. No tremor or body shaking today A/P Assessment and Plan 62-year-old female with history of CAD s/p 3vessel CABG, CHF, COPD on 3L NC, HTN , HLD, Diabetes, Anemia, CKD baseline creatinine around 2.0, presents with increasing shortness of breath, cough, edema, weight gain, and hallucinations over the past 2 weeks. The patient was recently admitted to [facility] 09/28-10/06 for acute renal failure, acute respiratory failure, CHF, fluid overload, possible pneumonia, s/p intubation on 09/29, discharged on Bumex 2mg bid for CHF. 11/10: Visual hallucination, pending psych eval, D/W cardiology no further intervention at this point 11/11: Patient is not allergic medicated today I discussed with the soda dry house operator , her creatinine increased to 3.2 will then initiate renal workup including renal ultrasound and consult nephrology 11/12: Patient stated she still having hallucination, today with tremor and ataxia, urinary obstructions> I will check CT of the head, patient is on Neurontin will put this on hold and check the level, Neurontin can cause tremor , will check ammonia level, vitamin D 12 and B-6, consult neurology for hallucination and tremor. Appreciate renal consult recommended making diuresing every other day, giving albumin and monitor renal function Kim catheter, consider consulting urology for urinary obstruction 11/13: Appreciate nephrology follow-up status post hemodialysis, 1 L of clinically patient doing much better more awake and alert, no tremor or shaking today, her ammonia level showed 45 started on lactulose, CT head was unremarkable, most likely her tremor and hallucination was related to uremia, still pending neurology consultation A/P: Acute Diastolic CHF Exacerbation: prior records indicate history of diastolic CHF, however no echo on file. Patient with +SOB/BARAKAT, BLE edema. CXR reviewed with mild CHF. -continue patient's diuretic, Bumex 2mg po bid, difficult with diuresis secondary to CKD -continue patient's BB, ARB, aspirin -Monitor Is&Os, fluid/salt restrictions -Monitor on telemetry -Consult patient's Nutritional Assistant Dr. Escamilla Atypical Chest Pain with hx of CAD s/p CABG: suspect chest pain/SOB secondary to CHF as above. She had a nuclear stress test 4 months ago that was reportedly normal. -Rule out ACS with serial cardiac enzymes and EKGs -give aspirin, BB, nitro prn -monitor on telemetry -Cardiology consulted as above Hypertension: chronic -continue patient's home meds including cozaar, metoprolol, amiodarone -monitor BP, adjust antihypertensives as needed Diabetes Mellitus: chronic -continue patient's levemir 90u sq hs and Novolog 22u tidac -monitor accu-checks and cover with SSI COPD, Chronic Respiratory Failure on 3L NC at home: chronic, no wheezing on exam -continue duonebs q8h and q4h prn -O2 as needed -outpatient follow up with global sales executive Dr. Whitley. CKD, stage III: Cr 2.01, appears around baseline. Records from [facility] reviewed, baseline around 1.9. -avoid nephrotoxins, caution with diuresis -monitor renal function Hallucinations: patient reporting visual hallucinations. Possibly related to delirium, hypoxia; however eval for psychiatric etiology. -Psychiatry consulted , they did not think it psychogenic, attributed it to metabolic disturbance DVT Prophylaxis: Heparin sq Rigo Gutierrez MD Nov 13, 2017 18:16
--- NOTE | 2017-11-13 21:25 | MB ---
cc: Palomo Menon MD, PhD DATE: 11/13/2017 REASON FOR CONSULTATION: Hallucinations. HISTORY OF PRESENT ILLNESS: Ms. Morfin is a 62-year-old woman with congestive heart failure, hypertension, diabetes, COPD, chronic kidney disease. She was admitted for CHF exacerbation. She complained of visual hallucinations and confusion, although this is improved at the present time. She denies headaches or focal deficits. She states she has not had any hallucinations today. PAST MEDICAL HISTORY: History of CHF, diabetes, hypertension, chronic kidney disease. MEDICATIONS: Currently are lactulose, Lasix, calcium, heparin flush with dialysis, mannitol, gentamicin with dialysis, Tylenol, Nitrostat, Epogen, ____. NEUROLOGIC EXAMINATION: VITAL SIGNS: Blood pressure is 133/65, pulse 57, respiratory rate is 20, temperature 97.5 degrees. ____ FUNCTION: She is alert and oriented x 3. She follows commands. Speech is fluent. Naming ability is normal. There is no neglect. Cranial nerves 2-12 are normal. Motor exam 5/5 strength of all groups without drift. Reflexes are symmetric. IMAGING: CT of the brain is normal. LABORATORY DATA: White count 5400, hemoglobin 9.7, hematocrit 31%, platelet count 237,000. PT 10.2, INR 1, APTT 22.2. Sodium is 135, potassium 5, chloride 100, CO2 is 27.8. The BUN is 83, creatinine 3.43. Ammonia 42. Urinalysis pH is 5, specific gravity 1.014. Tox screen unremarkable. IMPRESSION: Probable metabolic encephalopathy, which appears to be improving at the present time. Her hallucinations appear to be improved at the present time as well. Palomo Menon MD, PhD MICHEAL/rt , 09:00 PM , 09:24 PM
[2017-11-13] MEDS: INSULIN DETEMIR 100 UNITS/ML VIAL SQ SCH (21:39)
[2017-11-14] VITALS: BP 140/70; PULSE 59; PULSE 64; RESP 19; TEMP 98.1; O2SAT 94
[2017-11-14 04:00] VITALS: BP 151/67; PULSE 67; RESP 20; TEMP 98.7; O2SAT 91
[2017-11-14 08:04] VITALS: BP 124/59; PULSE 60; RESP 18; TEMP 97.7; O2SAT 92
--- NOTE | 2017-11-14 08:43 | HHI.PR ---
Subjective Remarks pt denies chest pain, has SOB Objective Vital Signs Date Time Temp Pulse Resp B/P (MAP) Pulse Ox O2 Delivery O2 Flow Rate FiO2 11/14/17 08:04 97.7 60 18 124/59 (80) 92 11/14/17 04:00 98.7 67 20 151/67 (95) 91 11/14/17 00:00 98.1 64 19 140/70 (93) 94 11/14/17 00:00 59 11/13/17 21:26 Nasal Cannula 3.00 11/13/17 20:03 60 11/13/17 20:03 60 11/13/17 20:00 98.7 60 20 148/78 (101) 93 11/13/17 19:00 Nasal Cannula 3.00 11/13/17 16:00 97.5 57 20 133/65 (87) 91 11/13/17 12:00 98.1 60 20 120/56 (77) 94 11/13/17 11:28 61 I/O 11/13/17 11/13/17 11/13/17 11/14/17 11/14/17 11/14/17 06:59 14:59 22:59 06:59 14:59 22:59 Intake Total 100 ml 100 ml Output Total 400 ml 1000 ml 600 ml Balance -300 ml -1000 ml -500 ml Intake Oral 100 ml 100 ml Output Urine Total 400 ml 600 ml Hemodialysis 1000 ml # Voids 1 # Bowel Movements 0 VSS CHEST: CTA HEART: S1, S2, RRR ABD: ST EXT: No edema Result Diagram: 11/12/17 1605 11/13/17 0715 Assessment and Plan Assessment and Plan pt had HD yesterday. she will have another one tomorrow. She is stable cardiacwise. I will follow Jake Escamilla MD Nov 14, 2017 08:43
[2017-11-14] MEDS: INSULIN ASPART 1,000 UNITS/10 ML VIAL SQ SCH ×3 (08:52→18:07)
[2017-11-14] MEDS: INSULIN ASPART SUPPLEMENTAL SCALE SQ SCH ×4 (08:53→21:00)
[2017-11-14] MEDS: ASPIRIN 81 MG CHEW TAB CHEW SCH (09:00)
[2017-11-14] MEDS: HEPARIN SODIUM - SQ 10,000 UNITS/ML VIAL SQ SCH ×2 (09:00→21:05)
[2017-11-14] MEDS: DOCUSATE SODIUM 50 MG/SENNA 8.6 MG TAB PO SCH (09:00)
[2017-11-14] MEDS: LOSARTAN 25 MG TAB PO SCH (09:00)
[2017-11-14] MEDS: METOPROLOL TARTRATE 25 MG TAB PO SCH ×2 (09:00→20:54)
[2017-11-14] MEDS: SODIUM CHLORIDE 0.9% FLUSH 10 ML FLUSH IV FLUSH SCH ×2 (09:00→21:07)
[2017-11-14] MEDS: CHOLECALCIFEROL (VIT D3) 5000 UNIT CAP PO SCH (09:00)
[2017-11-14] MEDS: LACTULOSE SYRUP 20 GM/30 ML CUP PO SCH ×3 (09:00→17:53)
[2017-11-14] MEDS: FUROSEMIDE 40 MG/4 ML VIAL IV PUSH SCH ×2 (09:00→17:53)
[2017-11-14] MEDS: AMIODARONE 200 MG TAB PO SCH (09:00)
[2017-11-14] MEDS: CALCIUM ACETATE 667 MG CAP PO SCH ×3 (09:00→17:53)
[2017-11-14] MEDS: SORBITOL 70% SOLN 30 ML CUP PO SCH (09:00)
[2017-11-14] MEDS: VITAMIN B CMPLX/VITC/FOLIC AC CAP PO SCH (09:00)
[2017-11-14] MEDS: HEPARIN SODIUM - IV 10,000 UNITS/10 ML VIAL PRN (12:13)
[2017-11-14] MEDS: GENTAMICIN SULFATE 20 MG/2 ML VIAL OTHER PRN (12:13)
[2017-11-14] MEDS: EPOETIN ALFA 10,000 UNITS/ML VIAL IV PUSH PRN (12:14)
[2017-11-14] MEDS: ACETAMINOPHEN 325 MG TAB PO PRN (13:02)
--- NOTE | 2017-11-14 14:37 | HHI.NPPN ---
Subjective History of Present Illness 62-year-old female with diabetes, acute and chronic kidney disease, CHF Objective Data Data 11/14/17 11/15/17 19:00 07:00 Output Total 2200 ml Balance -2200 ml Hemodialysis 2200 ml Vital Signs Date Time Temp Pulse Resp B/P (MAP) Pulse Ox O2 Delivery O2 Flow Rate FiO2 11/14/17 08:04 97.7 60 18 124/59 (80) 92 11/14/17 04:00 98.7 67 20 151/67 (95) 91 11/14/17 00:00 98.1 64 19 140/70 (93) 94 11/14/17 00:00 59 11/13/17 21:26 Nasal Cannula 3.00 11/13/17 20:03 60 11/13/17 20:03 60 11/13/17 20:00 98.7 60 20 148/78 (101) 93 11/13/17 19:00 Nasal Cannula 3.00 11/13/17 16:00 97.5 57 20 133/65 (87) 91 -: 11/12/17 1605 11/13/17 0715 Physical Exam General Appearance: Well Developed, Well Nourished, Obese Neck Neck Exam: Trachea Midline Pulmonary Resp Exam: Crackles, Rhonchi, Decreased Bases Cardiology CV Exam: Regular Gastrointestinal/Abdomen GI Exam: Soft, Non-Tender, Bowel Sounds Present Extremeties Extremities Exam: Moderate Edema Assessment/Plan Problem List: (1) Acute on chronic diastolic (congestive) heart failure ICD Codes: I50.33 - Acute on chronic diastolic (congestive) heart failure Status: Acute Plan: Patient has worsening creatinine Hemodialysis 2.2 L off she is volume overloaded difficult for her to breathe short of breath on Lasix UOP Low Secondary hyperparathyroidism and vitamin D 3 5000 units daily add PhosLo and Nephrocaps (2) Diabetes ICD Codes: E11.9 - Type 2 diabetes mellitus without complications Plan: Patient on insulin coverage (3) SOB (shortness of breath) ICD Codes: R06.02 - Shortness of breath Plan: Multifactorial in might be early congestive heart failure continue to monitor (4) CAD (coronary artery disease) ICD Codes: I25.10 - Atherosclerotic heart disease of [place] coronary artery without angina pectoris (5) Hx of CABG ICD Codes: Z95.1 - Presence of aortocoronary bypass graft Plan: Cardiology is following (6) Alkalosis, metabolic ICD Codes: E87.3 - Alkalosis Plan: Patient appears to have dehydration leading to alkalosis Problem Qualifiers (1) Diabetes: Kike Stewart MD Nov 14, 2017 14:37
--- NOTE | 2017-11-14 14:54 | HHI.PR ---
Subjective Remarks Doing better today still Going for hemodialysis Objective Vitals Vital Signs Date Time Temp Pulse Resp B/P (MAP) Pulse Ox O2 Delivery O2 Flow Rate FiO2 11/14/17 08:04 97.7 60 18 124/59 (80) 92 11/14/17 04:00 98.7 67 20 151/67 (95) 91 11/14/17 00:00 98.1 64 19 140/70 (93) 94 11/14/17 00:00 59 11/13/17 21:26 Nasal Cannula 3.00 11/13/17 20:03 60 11/13/17 20:03 60 11/13/17 20:00 98.7 60 20 148/78 (101) 93 11/13/17 19:00 Nasal Cannula 3.00 11/13/17 16:00 97.5 57 20 133/65 (87) 91 I/O 11/13/17 11/13/17 11/13/17 11/14/17 11/14/17 11/14/17 07:00 15:00 23:00 07:00 15:00 23:00 Intake Total 100 ml 100 ml Output Total 400 ml 1000 ml 600 ml 2200 ml Balance -300 ml -1000 ml -500 ml -2200 ml Intake Oral 100 ml 100 ml Output Urine Total 400 ml 600 ml Hemodialysis 1000 ml 2200 ml # Voids 1 # Bowel Movements 0 Result Diagram: 11/12/17 1605 11/13/17 0715 Objective Remarks - GENERAL: This is a well-nourished, well-developed patient, in no apparent distress. SKIN: No rashes, warm and dry HEAD: Atraumatic. Normocephalic. EYES: PERRLA . No scleral icterus. ENT: No bleeding, or drainage, Airway patent. NECK: Trachea midline. Supple CARDIOVASCULAR: RRR, no gallops, or rubs. RESPIRATORY: Fair air entry bilaterally. No W, R, or R GASTROINTESTINAL: Abdomen soft, non-tender, nondistended. Positive bowel sounds MUSCULOSKELETAL: Extremities without clubbing, cyanosis, or edema. Pedal pulses appreciated NEUROLOGICAL: Awake and alert. Moves all extremity. No tremor or body shaking today A/P Assessment and Plan 62-year-old female with history of CAD s/p 3vessel CABG, CHF, COPD on 3L NC, HTN , HLD, Diabetes, Anemia, CKD baseline creatinine around 2.0, presents with increasing shortness of breath, cough, edema, weight gain, and hallucinations over the past 2 weeks. The patient was recently admitted to [facility] 09/28-10/06 for acute renal failure, acute respiratory failure, CHF, fluid overload, possible pneumonia, s/p intubation on 09/29, discharged on Bumex 2mg bid for CHF. A/P: Acute Diastolic CHF Exacerbation: prior records indicate history of diastolic CHF, however no echo on file. Patient with +SOB/BARAKAT, BLE edema. CXR reviewed with mild CHF. -continue patient's diuretic, Bumex 2mg po bid, difficult with diuresis secondary to CKD -continue patient's BB, ARB, aspirin -Monitor Is&Os, fluid/salt restrictions -Monitor on telemetry -Consult patient's Entry Level Account Representative Dr. Escamilla Atypical Chest Pain with hx of CAD s/p CABG: suspect chest pain/SOB secondary to CHF as above. She had a nuclear stress test 4 months ago that was reportedly normal. -Rule out ACS with serial cardiac enzymes and EKGs -give aspirin, BB, nitro prn -monitor on telemetry -Cardiology consulted as above Encephalopathy tremor and ataxia Mostly due to uremia improved after starting hemodialysis Urinary obstruction Kim cath, consult urology Hypertension: chronic -continue patient's home meds including cozaar, metoprolol, amiodarone -monitor BP, adjust antihypertensives as needed Diabetes Mellitus: chronic -continue patient's levemir 90u sq hs and Novolog 22u tidac -monitor accu-checks and cover with SSI COPD, Chronic Respiratory Failure on 3L NC at home: chronic, no wheezing on exam -continue duonebs q8h and q4h prn -O2 as needed -outpatient follow up with tank washer Dr. Whitley. ESRD: Cr 2.01, appears around baseline. Records from [facility] reviewed, baseline around 1.9. -avoid nephrotoxins, caution with diuresis -monitor renal function Worsening clinically started on hemodialysis per nephrology Visual hallucinations: Mostly related to metabolic encephalopathy due to uremia and hypoxia, -Psychiatry consulted , they did not think it psychogenic, attributed it to metabolic disturbance Neurology consult him a CT of the head within normal limits, Hyperammonemia started on lactulose DVT Prophylaxis: Heparin sq Discharge Planning She was started on hemodialysis, decision for permanent catheter per nephrology , discussed with nurse outreach case manager to start arrangement for possibility for need of outpatient HD Rigo Gutierrez MD Nov 14, 2017 14:54
[2017-11-14 16:00] VITALS: BP 112/65; PULSE 62; PULSE 63; RESP 18; TEMP 97.8; O2SAT 92
[2017-11-14 20:00] VITALS: BP 135/61; PULSE 58; PULSE 82; RESP 20; TEMP 97.9; O2SAT 95
[2017-11-14] MEDS: INSULIN DETEMIR 100 UNITS/ML VIAL SQ SCH (21:06)
[2017-11-15] VITALS (11 sets, daily range): BP systolic 110–134; BP diastolic 53–88; PULSE 52–63; RESP 18–20; TEMP 97.8–99.1; O2SAT 91–99
--- NOTE | 2017-11-15 01:59 | HHI.PR ---
Subjective Remarks NOT SEEN Objective Vitals Vital Signs Date Time Temp Pulse Resp B/P (MAP) Pulse Ox O2 Delivery O2 Flow Rate FiO2 11/15/17 01:02 98.9 54 18 115/53 (73) 91 11/15/17 00:00 Nasal Cannula 3.00 11/15/17 00:00 52 11/14/17 21:21 Nasal Cannula 3.00 11/14/17 20:00 Nasal Cannula 3.00 11/14/17 20:00 58 11/14/17 20:00 97.9 82 20 135/61 (85) 95 11/14/17 16:00 97.8 62 18 112/65 (81) 92 11/14/17 16:00 63 11/14/17 08:04 97.7 60 18 124/59 (80) 92 11/14/17 07:00 Nasal Cannula 3.00 11/14/17 04:00 98.7 67 20 151/67 (95) 91 I/O 11/14/17 11/14/17 11/14/17 11/15/17 11/15/17 11/15/17 07:00 15:00 23:00 07:00 15:00 23:00 Intake Total 100 ml 360 ml Output Total 600 ml 2200 ml Balance -500 ml -2200 ml 360 ml Intake Oral 100 ml 360 ml Output Urine Total 600 ml Hemodialysis 2200 ml # Voids 1 # Bowel Movements 0 0 Result Diagram: 11/12/17 1605 11/13/17 0715 Imaging Last Impressions Head CT 11/12/17 0000 Signed Impressions: Service Date/Time: Sunday, November 12, 2017 17:46 - CONCLUSION: Normal examination. Darryl David MD Catheter Placement X-Ray 11/12/17 0000 Signed Impressions: Service Date/Time: Sunday, November 12, 2017 16:29 - CONCLUSION: Uncomplicated ultrasound and fluoroscopic guided central venous hemodialysis catheter placement as above Darryl David MD Renal Ultrasound 11/11/17 0000 Signed Impressions: Service Date/Time: Saturday, November 11, 2017 10:13 - CONCLUSION: No acute disease. Javon Botello MD Chest X-Ray [id number]/08/[id number] Signed Impressions: Service Date/Time: October 20:50 - CONCLUSION: 1. Mild congestive heart failure. Issac Sullivan MD Objective Remarks GENERAL: This is a well-nourished, well-developed patient, in no apparent distress. SKIN: No rashes, warm and dry HEAD: Atraumatic. Normocephalic. EYES: PERRLA . No scleral icterus. ENT: No bleeding, or drainage, Airway patent. NECK: Trachea midline. Supple CARDIOVASCULAR: RRR, no gallops, or rubs. RESPIRATORY: Fair air entry bilaterally. No W, R, or R GASTROINTESTINAL: Abdomen soft, non-tender, nondistended. Positive bowel sounds MUSCULOSKELETAL: Extremities without clubbing, cyanosis, or edema. Pedal pulses appreciated NEUROLOGICAL: Awake and alert. Moves all extremity. No tremor or body shaking today A/P Problem List: (1) Hallucinations ICD Code: R44.3 - Hallucinations, unspecified (2) Acute on chronic diastolic (congestive) heart failure ICD Code: I50.33 - Acute on chronic diastolic (congestive) heart failure Status: Acute Assessment and Plan 62-year-old female with history of CAD s/p 3vessel CABG, CHF, COPD on 3L NC, HTN , HLD, Diabetes, Anemia, CKD baseline creatinine around 2.0, presents with increasing shortness of breath, cough, edema, weight gain, and hallucinations over the past 2 weeks. The patient was recently admitted to [facility] 09/28-10/06 for acute renal failure, acute respiratory failure, CHF, fluid overload, possible pneumonia, s/p intubation on 09/29, discharged on Bumex 2mg bid for CHF. Acute Diastolic CHF Exacerbation: prior records indicate history of diastolic CHF, however no echo on file. Patient with +SOB/BARAKAT, BLE edema. CXR reviewed with mild CHF. -continue patient's diuretic, Bumex 2mg po bid, difficult with diuresis secondary to CKD -continue patient's BB, ARB, aspirin -Monitor Is&Os, fluid/salt restrictions -Monitor on telemetry -Consult patient's Brick Tester Dr. Escamilla Atypical Chest Pain with hx of CAD s/p CABG: suspect chest pain/SOB secondary to CHF as above. She had a nuclear stress test 4 months ago that was reportedly normal. -Ruled out ACS with serial cardiac enzymes and EKGs -give aspirin, BB, nitro prn -monitor on telemetry -Cardiology consulted as above Encephalopathy tremor and ataxia Mostly due to uremia improved after starting hemodialysis Urinary obstruction Kim cath, consult urology Hypertension: chronic -continue patient's home meds including cozaar, metoprolol, amiodarone -monitor BP, adjust antihypertensives as needed Diabetes Mellitus: chronic -continue patient's levemir 90u sq hs and Novolog 22u tidac -monitor accu-checks and cover with SSI COPD, Chronic Respiratory Failure on 3L NC at home: chronic, no wheezing on exam -continue duonebs q8h and q4h prn -O2 as needed -outpatient follow up with electrotherapist Dr. Whitley. ESRD: Cr 2.01, appears around baseline. Records from [facility] reviewed, baseline around 1.9. -avoid nephrotoxins, caution with diuresis -monitor renal function Worsening clinically started on hemodialysis per nephrology Visual hallucinations: Mostly related to metabolic encephalopathy due to uremia and hypoxia, -Psychiatry consulted , they did not think it psychogenic, attributed it to metabolic disturbance Neurology consult him a CT of the head within normal limits, Hyperammonemia started on lactulose DVT Prophylaxis: Heparin sq Discharge Planning She was started on hemodialysis, decision for permanent catheter per nephrology , discussed with caseworker intake to start arrangement for outpatient HD Reagan Montes MD Nov 15, 2017 01:59
[2017-11-15] MEDS: INSULIN ASPART SUPPLEMENTAL SCALE SQ SCH ×4 (08:00→21:29)
[2017-11-15] MEDS: INSULIN ASPART 1,000 UNITS/10 ML VIAL SQ SCH ×3 (08:00→17:00)
[2017-11-15] MEDS: LACTULOSE SYRUP 20 GM/30 ML CUP PO SCH ×3 (09:00→17:54)
[2017-11-15] MEDS: SORBITOL 70% SOLN 30 ML CUP PO SCH (09:00)
[2017-11-15] MEDS: CALCIUM ACETATE 667 MG CAP PO SCH ×3 (09:00→17:49)
[2017-11-15] MEDS: SODIUM CHLORIDE 0.9% FLUSH 10 ML FLUSH IV FLUSH SCH ×2 (09:00→21:30)
[2017-11-15] MEDS: VITAMIN B CMPLX/VITC/FOLIC AC CAP PO SCH (09:00)
[2017-11-15 09:06] LABS: CREATININE 2.04 MG/DL (0.50-1.00)
[2017-11-15] MEDS: FUROSEMIDE 40 MG/4 ML VIAL IV PUSH SCH ×2 (09:08→17:48)
[2017-11-15] MEDS: CHOLECALCIFEROL (VIT D3) 5000 UNIT CAP PO SCH (09:09)
[2017-11-15] MEDS: AMIODARONE 200 MG TAB PO SCH (09:09)
[2017-11-15] MEDS: LOSARTAN 25 MG TAB PO SCH (09:09)
[2017-11-15] MEDS: DOCUSATE SODIUM 50 MG/SENNA 8.6 MG TAB PO SCH (09:09)
[2017-11-15] MEDS: METOPROLOL TARTRATE 25 MG TAB PO SCH ×2 (09:09→21:30)
[2017-11-15] MEDS: ASPIRIN 81 MG CHEW TAB CHEW SCH (09:09)
[2017-11-15] MEDS: HEPARIN SODIUM - SQ 10,000 UNITS/ML VIAL SQ SCH ×2 (09:09→21:30)
--- NOTE | 2017-11-15 10:41 | HHI.PR ---
Subjective Remarks Follow-up renal dysfunction. Complains of bilateral lower extremity swelling. States he is voiding. Discussed with nursing, patient has been anxious especially when her door is closed. Objective Vitals Vital Signs Date Time Temp Pulse Resp B/P (MAP) Pulse Ox O2 Delivery O2 Flow Rate FiO2 11/15/17 08:04 97.8 61 18 125/69 (87) 93 11/15/17 05:32 98.8 58 18 123/53 (76) 92 11/15/17 04:00 61 11/15/17 04:00 Nasal Cannula 3.00 11/15/17 01:02 98.9 54 18 115/53 (73) 91 11/15/17 00:00 Nasal Cannula 3.00 11/15/17 00:00 52 11/14/17 21:21 Nasal Cannula 3.00 11/14/17 20:00 Nasal Cannula 3.00 11/14/17 20:00 58 11/14/17 20:00 97.9 82 20 135/61 (85) 95 11/14/17 16:00 97.8 62 18 112/65 (81) 92 11/14/17 16:00 63 I/O 11/14/17 11/14/17 11/14/17 11/15/17 11/15/17 11/15/17 07:00 15:00 23:00 07:00 15:00 23:00 Intake Total 100 ml 360 ml Output Total 600 ml 2200 ml Balance -500 ml -2200 ml 360 ml Intake Oral 100 ml 360 ml Output Urine Total 600 ml Hemodialysis 2200 ml # Voids 1 # Bowel Movements 0 0 Result Diagram: 11/12/17 1605 11/15/17 0630 Imaging Last Impressions Head CT 11/12/17 0000 Signed Impressions: Service Date/Time: Sunday, November 12, 2017 17:46 - CONCLUSION: Normal examination. Darryl David MD Catheter Placement X-Ray 11/12/17 0000 Signed Impressions: Service Date/Time: Sunday, November 12, 2017 16:29 - CONCLUSION: Uncomplicated ultrasound and fluoroscopic guided central venous hemodialysis catheter placement as above Darryl David MD Renal Ultrasound 11/11/17 0000 Signed Impressions: Service Date/Time: Saturday, November 11, 2017 10:13 - CONCLUSION: No acute disease. Javon Botello MD Chest X-Ray 11/08/172035 Signed Impressions: Service Date/Time: October 20:50 - CONCLUSION: 1. Mild congestive heart failure. Issac Sullivan MD Objective Remarks GENERAL: This is a well-nourished, well-developed patient, in no apparent distress. SKIN: No rashes, warm and dry CARDIOVASCULAR: RRR, no gallops, or rubs. RESPIRATORY: Fair air entry bilaterally. No W, R, or R GASTROINTESTINAL: Abdomen soft, non-tender, nondistended. Positive bowel sounds MUSCULOSKELETAL: Extremities without clubbing, cyanosis but with bilateral lower extremity pitting edema. Pedal pulses appreciated NEUROLOGICAL: Awake and alert. Moves all extremity. No tremor or body shaking Procedures Vas-Cath A/P Problem List: (1) Hallucinations ICD Code: R44.3 - Hallucinations, unspecified (2) Acute on chronic diastolic (congestive) heart failure ICD Code: I50.33 - Acute on chronic diastolic (congestive) heart failure Status: Acute Assessment and Plan 62-year-old female with history of CAD s/p 3vessel CABG, CHF, COPD on 3L NC, HTN , HLD, Diabetes, Anemia, CKD baseline creatinine around 2.0, presents with increasing shortness of breath, cough, edema, weight gain, and hallucinations over the past 2 weeks. The patient was recently admitted to [facility] 09/28-10/06 for acute renal failure, acute respiratory failure, CHF, fluid overload, possible pneumonia, s/p intubation on 09/29, discharged on Bumex 2mg bid for CHF. Acute Diastolic CHF Exacerbation: prior records indicate history of diastolic CHF, however no echo on file. Patient with +SOB/BARAKAT, BLE edema. CXR reviewed with mild CHF. -Improving continue diuresis with Lasix 40 mg IV every 12 continue patient's diuretic, Bumex 2mg po bid, difficult with diuresis secondary to CKD -continue patient's BB, ARB, aspirin -Monitor Is&Os, fluid/salt restrictions -Monitor on telemetry -patient's Senior Living Sales Counselor Dr. Escamilla following Atypical Chest Pain with hx of CAD s/p CABG: suspect chest pain/SOB secondary to CHF as above. She had a nuclear stress test 4 months ago that was reportedly normal. -Ruled out ACS with serial cardiac enzymes and EKGs -give aspirin, BB, nitro prn -monitor on telemetry -Cardiology consulted as above Encephalopathy tremor and ataxia Mostly due to uremia improved after starting hemodialysis Urinary obstruction. Improved Kim cath discontinued Hypertension: chronic -continue patient's home meds including cozaar, metoprolol, amiodarone -monitor BP, adjust antihypertensives as needed Diabetes Mellitus: chronic -Hypoglycemic this lunch continue patient's levemir 90u sq hs and Novolog 22u tidac exam for lunch dose. Hypoglycemia protocol -monitor accu-checks and cover with SSI COPD, Chronic Respiratory Failure on 3L NC at home: chronic, no wheezing on exam -continue duonebs q8h and q4h prn -O2 as needed -outpatient follow up with automotive service management teacher Dr. Whitley. ESRD: Cr 2.01, appears around baseline. Records from [facility] reviewed, baseline around 1.9. -avoid nephrotoxins, caution with diuresis -monitor renal function which is improving -hemodialysis per nephrology Visual hallucinations: Mostly related to metabolic encephalopathy due to uremia and hypoxia, -Psychiatry consulted , they did not think it psychogenic, attributed it to metabolic disturbance Neurology consulted CT of the head within normal limits Hyperammonemia started on lactulose. AST slightly elevated negative hepatitis panel. DVT Prophylaxis: Heparin sq She is ambulatory Discharge Planning She was started on hemodialysis, decision for permanent catheter per nephrology , discussed with continuous pillowcase cutter to start arrangement for outpatient HD Reagan Montes MD Nov 15, 2017 10:41
[2017-11-15] MEDS: ONDANSETRON HCL 4 MG/2 ML VIAL IV PUSH PRN (11:45)
--- NOTE | 2017-11-15 14:48 | HHI.NPPN ---
Subjective History of Present Illness 62-year-old female with diabetes, acute and chronic kidney disease, CHF Objective Data Data Vital Signs Date Time Temp Pulse Resp B/P (MAP) Pulse Ox O2 Delivery O2 Flow Rate FiO2 11/15/17 12:06 99.1 57 18 134/59 (84) 91 11/15/17 11:02 95 Nasal Cannula 3.00 11/15/17 08:04 97.8 61 18 125/69 (87) 93 11/15/17 08:00 59 11/15/17 08:00 61 11/15/17 05:32 98.8 58 18 123/53 (76) 92 11/15/17 04:00 61 11/15/17 04:00 Nasal Cannula 3.00 11/15/17 01:02 98.9 54 18 115/53 (73) 91 11/15/17 00:00 Nasal Cannula 3.00 11/15/17 00:00 52 11/14/17 21:21 Nasal Cannula 3.00 11/14/17 20:00 Nasal Cannula 3.00 11/14/17 20:00 58 11/14/17 20:00 97.9 82 20 135/61 (85) 95 11/14/17 16:00 97.8 62 18 112/65 (81) 92 11/14/17 16:00 63 -: 11/12/17 1605 11/15/17 0630 Physical Exam General Appearance: Well Developed, Well Nourished, Obese Neck Neck Exam: Trachea Midline Pulmonary Resp Exam: Decreased Bases Cardiology CV Exam: Regular Gastrointestinal/Abdomen GI Exam: Soft, Non-Tender, Bowel Sounds Present Extremeties Extremities Exam: Trace Edema Assessment/Plan Problem List: (1) Acute on chronic diastolic (congestive) heart failure ICD Codes: I50.33 - Acute on chronic diastolic (congestive) heart failure Status: Acute Plan: Patient has worsening creatinine Hemodialysis next tomorrow labs improved follow BMP to determine dialysis On Lasix 40 mg q 12 Secondary hyperparathyroidism and vitamin D 3 5000 units daily add PhosLo and Nephrocaps (2) Diabetes ICD Codes: E11.9 - Type 2 diabetes mellitus without complications Plan: Patient on insulin coverage (3) SOB (shortness of breath) ICD Codes: R06.02 - Shortness of breath Plan: Multifactorial in might be early congestive heart failure continue to monitor (4) CAD (coronary artery disease) ICD Codes: I25.10 - Atherosclerotic heart disease of [place] coronary artery without angina pectoris (5) Hx of CABG ICD Codes: Z95.1 - Presence of aortocoronary bypass graft Plan: Cardiology is following (6) Alkalosis, metabolic ICD Codes: E87.3 - Alkalosis Plan: Patient appears to have dehydration leading to alkalosis Problem Qualifiers (1) Diabetes: Kike Stewart MD Nov 15, 2017 14:48
[2017-11-15 17:55] LABS: GABAPENTIN (NEURONTIN) 39.9 mcg/mL (2.0-20.0)
[2017-11-15] MEDS: INSULIN DETEMIR 100 UNITS/ML VIAL SQ SCH (21:29)
[2017-11-15] MEDS: LACTIC ACID (AMMONIUM LACTATE) 12% LOTION 225 GM BTL TOPICAL SCH (21:31)
[2017-11-16] VITALS (9 sets, daily range): BP systolic 113–164; BP diastolic 56–86; PULSE 52–93; RESP 20; TEMP 97.4–99; O2SAT 91–97
[2017-11-16] MEDS: INSULIN ASPART 1,000 UNITS/10 ML VIAL SQ SCH ×3 (08:00→17:00)
[2017-11-16] MEDS: INSULIN ASPART SUPPLEMENTAL SCALE SQ SCH ×4 (08:00→20:39)
[2017-11-16 08:15] LABS: BICARBONATE 30.9 MEQ/L (21.0-32.0); CALCIUM 9.2 MG/DL (8.5-10.1); CREATININE 1.91 MG/DL (0.50-1.00)
[2017-11-16 08:23] LABS: PHOSPHORUS 3.4 MG/DL (2.5-4.9)
[2017-11-16] MEDS: LACTULOSE SYRUP 20 GM/30 ML CUP PO SCH ×3 (09:00→18:00)
[2017-11-16] MEDS: SORBITOL 70% SOLN 30 ML CUP PO SCH (09:00)
[2017-11-16] MEDS: DOCUSATE SODIUM 50 MG/SENNA 8.6 MG TAB PO SCH (09:00)
[2017-11-16] MEDS: LACTIC ACID (AMMONIUM LACTATE) 12% LOTION 225 GM BTL TOPICAL SCH ×2 (09:00→20:40)
[2017-11-16] MEDS: GENTAMICIN SULFATE 20 MG/2 ML VIAL OTHER PRN (10:02)
[2017-11-16] MEDS: EPOETIN ALFA 10,000 UNITS/ML VIAL IV PUSH PRN (10:02)
--- NOTE | 2017-11-16 10:52 | HHI.NPPN ---
Subjective History of Present Illness 62-year-old female with diabetes, acute and chronic kidney disease, CHF Objective Data Data Vital Signs Date Time Temp Pulse Resp B/P (MAP) Pulse Ox O2 Delivery O2 Flow Rate FiO2 11/16/17 09:11 95 Nasal Cannula 3.00 11/16/17 08:00 98.3 57 20 164/71 (102) 97 11/16/17 04:00 99.0 62 20 123/86 (98) 91 11/16/17 04:00 Nasal Cannula 3.00 11/16/17 00:00 98.7 61 20 141/78 (99) 92 11/16/17 00:00 Nasal Cannula 3.00 11/15/17 20:53 95 Nasal Cannula 3.00 11/15/17 20:00 Nasal Cannula 3.00 11/15/17 20:00 99.0 63 20 133/68 (89) 97 11/15/17 16:04 98.8 59 18 110/88 (95) 99 11/15/17 12:06 99.1 57 18 134/59 (84) 91 11/15/17 11:02 95 Nasal Cannula 3.00 -: 11/12/17 1605 11/16/17 0539 Physical Exam General Appearance: Well Developed, Well Nourished, Obese Neck Neck Exam: Trachea Midline Pulmonary Resp Exam: Decreased Bases Cardiology CV Exam: Regular Gastrointestinal/Abdomen GI Exam: Soft, Non-Tender, Bowel Sounds Present Extremeties Extremities Exam: Trace Edema Assessment/Plan Problem List: (1) Acute on chronic diastolic (congestive) heart failure ICD Codes: I50.33 - Acute on chronic diastolic (congestive) heart failure Status: Acute Plan: Patient has worsening creatinine Hemodialysis seen during dialysis on 2K bath ultrafiltration 3 L labs improved follow BMP Creatinine improved to 1.9 He may take that off during dialysis over the weekend If creatinine remains low may remove to Vas-Cath as leaking Secondary hyperparathyroidism and vitamin D 3 5000 units daily add PhosLo and Nephrocaps (2) Diabetes ICD Codes: E11.9 - Type 2 diabetes mellitus without complications Plan: Patient on insulin coverage (3) SOB (shortness of breath) ICD Codes: R06.02 - Shortness of breath Plan: Multifactorial in might be early congestive heart failure continue to monitor (4) CAD (coronary artery disease) ICD Codes: I25.10 - Atherosclerotic heart disease of [place] coronary artery without angina pectoris (5) Hx of CABG ICD Codes: Z95.1 - Presence of aortocoronary bypass graft Plan: Cardiology is following (6) Alkalosis, metabolic ICD Codes: E87.3 - Alkalosis Plan: Patient appears to have dehydration leading to alkalosis Problem Qualifiers (1) Diabetes: Kike Stewart MD Nov 16, 2017 10:52
--- NOTE | 2017-11-16 11:13 | HHI.PR ---
Subjective Remarks Follow-up kidney disease and diabetes mellitus. Creatinine continues to improve discussed with nephrology. Hypoglycemic secondary to decreased oral intake. A1c 10. Diabetic education provided. Chronic respiratory failure on 3 L nasal cannula at home discussed with nursing Objective Vitals Vital Signs Date Time Temp Pulse Resp B/P (MAP) Pulse Ox O2 Delivery O2 Flow Rate FiO2 11/16/17 09:11 95 Nasal Cannula 3.00 11/16/17 08:00 98.3 57 20 164/71 (102) 97 11/16/17 04:00 99.0 62 20 123/86 (98) 91 11/16/17 04:00 Nasal Cannula 3.00 11/16/17 00:00 98.7 61 20 141/78 (99) 92 11/16/17 00:00 Nasal Cannula 3.00 11/15/17 20:53 95 Nasal Cannula 3.00 11/15/17 20:00 Nasal Cannula 3.00 11/15/17 20:00 99.0 63 20 133/68 (89) 97 11/15/17 16:04 98.8 59 18 110/88 (95) 99 11/15/17 12:06 99.1 57 18 134/59 (84) 91 I/O 11/15/17 11/15/17 11/15/17 11/16/17 11/16/17 11/16/17 07:00 15:00 23:00 07:00 15:00 23:00 Intake Total 480 ml 300 ml Output Total 400 ml Balance 480 ml -100 ml Intake Oral 480 ml 300 ml Output Urine Total 400 ml # Voids 2 # Bowel Movements 0 Result Diagram: 11/12/17 1605 11/16/17 0539 Imaging Last Impressions Head CT 11/12/17 0000 Signed Impressions: Service Date/Time: Sunday, November 12, 2017 17:46 - CONCLUSION: Normal examination. Darryl David MD Catheter Placement X-Ray 11/12/17 0000 Signed Impressions: Service Date/Time: Sunday, November 12, 2017 16:29 - CONCLUSION: Uncomplicated ultrasound and fluoroscopic guided central venous hemodialysis catheter placement as above Darryl David MD Renal Ultrasound 11/11/17 0000 Signed Impressions: Service Date/Time: Saturday, November 11, 2017 10:13 - CONCLUSION: No acute disease. Javon Botello MD Chest X-Ray 11/08/172035 Signed Impressions: Service Date/Time: October 20:50 - CONCLUSION: 1. Mild congestive heart failure. Issac Sullivan MD Objective Remarks GENERAL: This is a well-nourished, well-developed patient, in no apparent distress. SKIN: No rashes, warm and dry CARDIOVASCULAR: RRR, no gallops, or rubs. RESPIRATORY: Fair air entry bilaterally. No W, R, or R GASTROINTESTINAL: Abdomen soft, non-tender, nondistended. Positive bowel sounds MUSCULOSKELETAL: Extremities without clubbing, cyanosis but with bilateral lower extremity pitting edema. Pedal pulses appreciated NEUROLOGICAL: Awake and alert. Moves all extremity. Procedures Vas-Cath A/P Problem List: (1) Hallucinations ICD Code: R44.3 - Hallucinations, unspecified (2) Acute on chronic diastolic (congestive) heart failure ICD Code: I50.33 - Acute on chronic diastolic (congestive) heart failure Status: Acute Assessment and Plan 62-year-old female with history of CAD s/p 3vessel CABG, CHF, COPD on 3L NC, HTN , HLD, Diabetes, Anemia, CKD baseline creatinine around 2.0, presents with increasing shortness of breath, cough, edema, weight gain, and hallucinations over the past 2 weeks. The patient was recently admitted to [facility] 09/28-10/06 for acute renal failure, acute respiratory failure, CHF, fluid overload, possible pneumonia, s/p intubation on 09/29, discharged on Bumex 2mg bid for CHF. Acute Diastolic CHF Exacerbation: prior records indicate history of diastolic CHF, however no echo on file. Patient with +SOB/BARAKAT, BLE edema. CXR reviewed with mild CHF. -Improving continue diuresis with Lasix 40 mg IV every 12h -continue patient's BB, ARB, aspirin -Monitor Is&Os, fluid/salt restrictions -Monitor on telemetry -patient's Senior Cost Estimator Dr. Escamilla following Atypical Chest Pain with hx of CAD s/p CABG: suspect chest pain/SOB secondary to CHF as above. She had a nuclear stress test 4 months ago that was reportedly normal. -Ruled out ACS with serial cardiac enzymes and EKGs -give aspirin, BB, nitro prn -monitor on telemetry -Cardiology consulted as above Encephalopathy tremor and ataxia Mostly due to uremia improved after starting hemodialysis Urinary obstruction. Improved Kim cath discontinued Hypertension: chronic -continue patient's home meds including cozaar, metoprolol, amiodarone -monitor BP, adjust antihypertensives as needed Diabetes Mellitus: chronic. A1c 10 -Hypoglycemic due to decreased oral continue patient's levemir 90u sq hs and decrease Novolog 18 u tidac. Hypoglycemia protocol -monitor accu-checks and cover with SSI COPD, Chronic Respiratory Failure on 3L NC at home: chronic, no wheezing on exam -continue duonebs q8h and q4h prn -O2 as needed -outpatient follow up with classified advertising supervisor Dr. Whitley. ESRD: Cr 2.01, appears around baseline. Records from [facility] reviewed, baseline around 1.9. -avoid nephrotoxins, caution with diuresis -monitor renal function which is improving -hemodialysis per nephrology Visual hallucinations: Mostly related to metabolic encephalopathy due to uremia and hypoxia, -Psychiatry consulted , they did not think it psychogenic, attributed it to metabolic disturbance Neurology consulted CT of the head within normal limits Hyperammonemia started on lactulose. AST slightly elevated negative hepatitis panel. DVT Prophylaxis: Heparin sq She is ambulatory Discharge Planning She was started on hemodialysis, further management per nephrology considering to discontinue Vas-Cath since renal function is improving Reagan Montes MD Nov 16, 2017 11:13
[2017-11-16] MEDS: CALCIUM ACETATE 667 MG CAP PO SCH ×3 (13:00→18:16)
[2017-11-16] MEDS: CHOLECALCIFEROL (VIT D3) 5000 UNIT CAP PO SCH (13:35)
[2017-11-16] MEDS: FUROSEMIDE 40 MG/4 ML VIAL IV PUSH SCH ×2 (13:36→18:16)
[2017-11-16] MEDS: SODIUM CHLORIDE 0.9% FLUSH 10 ML FLUSH IV FLUSH SCH ×2 (13:37→20:39)
[2017-11-16] MEDS: ASPIRIN 81 MG CHEW TAB CHEW SCH (13:39)
[2017-11-16] MEDS: LOSARTAN 25 MG TAB PO SCH (13:39)
[2017-11-16] MEDS: VITAMIN B CMPLX/VITC/FOLIC AC CAP PO SCH (13:40)
[2017-11-16] MEDS: AMIODARONE 200 MG TAB PO SCH (13:40)
[2017-11-16] MEDS: METOPROLOL TARTRATE 25 MG TAB PO SCH ×2 (13:41→20:38)
[2017-11-16] MEDS: HEPARIN SODIUM - SQ 10,000 UNITS/ML VIAL SQ SCH ×2 (13:43→20:38)
--- NOTE | 2017-11-16 13:59 | HHI.PR ---
Subjective Remarks pt denies chest pain and SOB Objective Vital Signs Date Time Temp Pulse Resp B/P (MAP) Pulse Ox O2 Delivery O2 Flow Rate FiO2 11/16/17 12:00 98.3 60 20 131/62 (85) 96 11/16/17 09:11 95 Nasal Cannula 3.00 11/16/17 08:00 98.3 57 20 164/71 (102) 97 11/16/17 04:00 99.0 62 20 123/86 (98) 91 11/16/17 04:00 Nasal Cannula 3.00 11/16/17 00:00 98.7 61 20 141/78 (99) 92 11/16/17 00:00 Nasal Cannula 3.00 11/15/17 20:53 95 Nasal Cannula 3.00 11/15/17 20:00 Nasal Cannula 3.00 11/15/17 20:00 99.0 63 20 133/68 (89) 97 11/15/17 16:04 98.8 59 18 110/88 (95) 99 I/O 11/15/17 11/15/17 11/15/17 11/16/17 11/16/17 11/16/17 07:00 15:00 23:00 07:00 15:00 23:00 Intake Total 480 ml 300 ml Output Total 400 ml 2500 ml Balance 480 ml -100 ml -2500 ml Intake Oral 480 ml 300 ml Output Urine Total 400 ml Hemodialysis 2500 ml # Voids 2 # Bowel Movements 0 CHEST: CTA HEART: S1,S2, RRR ABD: ST, NT EXT: No edema Result Diagram: 11/12/17 1605 11/16/17 0539 Assessment and Plan Assessment and Plan pt had 2 HD. She is stable cardiacwise. I will follow Jake Escamilla MD Nov 16, 2017 13:58
[2017-11-16] MEDS: INSULIN DETEMIR 100 UNITS/ML VIAL SQ SCH (20:37)
[2017-11-17] VITALS: BP 164/70; PULSE 61; RESP 20; TEMP 98.5; O2SAT 95
[2017-11-17 07:50] LABS: BICARBONATE 30.2 MEQ/L (21.0-32.0); CREATININE 1.75 MG/DL (0.50-1.00)
[2017-11-17] MEDS: LACTULOSE SYRUP 20 GM/30 ML CUP PO SCH ×4 (07:59→17:13)
[2017-11-17 08:00] VITALS: BP 141/62; PULSE 59; PULSE 62; RESP 20; TEMP 98.7; O2SAT 95
[2017-11-17] MEDS: AMIODARONE 200 MG TAB PO SCH (08:00)
[2017-11-17] MEDS: ASPIRIN 81 MG CHEW TAB CHEW SCH (08:00)
[2017-11-17] MEDS: CHOLECALCIFEROL (VIT D3) 5000 UNIT CAP PO SCH (08:00)
[2017-11-17] MEDS: METOPROLOL TARTRATE 25 MG TAB PO SCH ×2 (08:00→22:59)
[2017-11-17] MEDS: FUROSEMIDE 40 MG/4 ML VIAL IV PUSH SCH ×2 (08:01→17:15)
[2017-11-17] MEDS: ACETAMINOPHEN 325 MG TAB PO PRN ×2 (08:01→23:21)
[2017-11-17] MEDS: LOSARTAN 25 MG TAB PO SCH (08:01)
[2017-11-17] MEDS: CALCIUM ACETATE 667 MG CAP PO SCH ×3 (08:01→17:15)
[2017-11-17] MEDS: DOCUSATE SODIUM 50 MG/SENNA 8.6 MG TAB PO SCH (08:01)
[2017-11-17] MEDS: INSULIN ASPART SUPPLEMENTAL SCALE SQ SCH ×4 (08:02→23:01)
[2017-11-17] MEDS: HEPARIN SODIUM - SQ 10,000 UNITS/ML VIAL SQ SCH ×2 (08:02→21:00)
[2017-11-17] MEDS: INSULIN ASPART 1,000 UNITS/10 ML VIAL SQ SCH ×3 (08:02→17:00)
[2017-11-17] MEDS: VITAMIN B CMPLX/VITC/FOLIC AC CAP PO SCH (08:02)
[2017-11-17] MEDS: SODIUM CHLORIDE 0.9% FLUSH 10 ML FLUSH IV FLUSH SCH ×2 (08:02→21:00)
[2017-11-17] MEDS: LACTIC ACID (AMMONIUM LACTATE) 12% LOTION 225 GM BTL TOPICAL SCH ×2 (08:03→21:00)
[2017-11-17] MEDS: SORBITOL 70% SOLN 30 ML CUP PO SCH (08:03)
--- NOTE | 2017-11-17 10:47 | HHI.NPPN ---
Subjective History of Present Illness 62-year-old female with diabetes, acute and chronic kidney disease, CHF Additional Remarks Patient is alert, sitting on the chair, not in distress. Objective Data Data Vital Signs Date Time Temp Pulse Resp B/P (MAP) Pulse Ox O2 Delivery O2 Flow Rate FiO2 11/17/17 10:06 Nasal Cannula 3.00 11/17/17 08:00 98.7 62 20 141/62 (88) 95 11/17/17 08:00 59 11/17/17 08:00 Nasal Cannula 3.00 11/17/17 00:00 98.5 61 20 164/70 (101) 95 11/16/17 21:42 97 Nasal Cannula 3.00 11/16/17 20:00 99.0 93 20 113/56 (75) 97 11/16/17 19:00 Nasal Cannula 3.00 11/16/17 17:00 56 11/16/17 16:00 97.4 52 20 147/64 (91) 96 11/16/17 12:00 98.3 60 20 131/62 (85) 96 -: 11/17/17 0600 Physical Exam General Appearance: No Acute Distress, Comfortable, Obese Neck Neck Exam: Trachea Midline Pulmonary Resp Exam: Decreased Bases Cardiology CV Exam: Regular Gastrointestinal/Abdomen GI Exam: Soft, Non-Tender, Bowel Sounds Present Extremeties Extremities Exam: Trace Edema Neurologic Neuro Exam: Alert, Awake Psychiatric Psych Exam: Appropriate Responses Assessment/Plan Problem List: (1) Acute on chronic diastolic (congestive) heart failure ICD Codes: I50.33 - Acute on chronic diastolic (congestive) heart failure Status: Acute Plan: Patient has worsening creatinine Hemodialysis seen during dialysis on 2K bath ultrafiltration 3 L labs improved follow BMP Creatinine continue to improve, now 1.7. He may take that off during dialysis over the weekend If creatinine remains low may remove to Vas-Cath was Sunday Secondary hyperparathyroidism and vitamin D 3 5000 units daily on PhosLo and Nephrocaps. Continue Lasix, edema is improving. (2) Diabetes ICD Codes: E11.9 - Type 2 diabetes mellitus without complications Plan: Patient on insulin coverage (3) SOB (shortness of breath) ICD Codes: R06.02 - Shortness of breath Plan: Multifactorial in might be early congestive heart failure continue to monitor (4) CAD (coronary artery disease) ICD Codes: I25.10 - Atherosclerotic heart disease of [place] coronary artery without angina pectoris (5) Hx of CABG ICD Codes: Z95.1 - Presence of aortocoronary bypass graft Plan: Cardiology is following (6) Alkalosis, metabolic ICD Codes: E87.3 - Alkalosis Plan: Patient appears to have dehydration leading to alkalosis Problem Qualifiers (1) Diabetes: Lupe Huff MD Nov 17, 2017 10:47
--- NOTE | 2017-11-17 11:07 | HHI.PR ---
Subjective Remarks Follow-up bilateral lower extremity swelling. Patient with improving bilateral lower extremity edema on IV Lasix. Vas-Cath was removed last night. Discussed with nursing Objective Vitals Vital Signs Date Time Temp Pulse Resp B/P (MAP) Pulse Ox O2 Delivery O2 Flow Rate FiO2 11/17/17 10:06 Nasal Cannula 3.00 11/17/17 08:00 98.7 62 20 141/62 (88) 95 11/17/17 08:00 59 11/17/17 08:00 Nasal Cannula 3.00 11/17/17 00:00 98.5 61 20 164/70 (101) 95 11/16/17 21:42 97 Nasal Cannula 3.00 11/16/17 20:00 99.0 93 20 113/56 (75) 97 11/16/17 19:00 Nasal Cannula 3.00 11/16/17 17:00 56 11/16/17 16:00 97.4 52 20 147/64 (91) 96 11/16/17 12:00 98.3 60 20 131/62 (85) 96 I/O 11/16/17 11/16/17 11/16/17 11/17/17 11/17/17 11/17/17 07:00 15:00 23:00 07:00 15:00 23:00 Intake Total 300 ml 480 ml 120 ml Output Total 400 ml 2500 ml Balance -100 ml -2500 ml 480 ml 120 ml Intake Oral 300 ml 480 ml 120 ml Output Urine Total 400 ml Hemodialysis 2500 ml # Voids 4 2 # Bowel Movements 0 2 Result Diagram: 11/17/17 0600 Imaging Last Impressions Head CT 11/12/17 0000 Signed Impressions: Service Date/Time: Sunday, November 12, 2017 17:46 - CONCLUSION: Normal examination. Darryl David MD Catheter Placement X-Ray 11/12/17 0000 Signed Impressions: Service Date/Time: Sunday, November 12, 2017 16:29 - CONCLUSION: Uncomplicated ultrasound and fluoroscopic guided central venous hemodialysis catheter placement as above Darryl David MD Renal Ultrasound 11/11/17 0000 Signed Impressions: Service Date/Time: Saturday, November 11, 2017 10:13 - CONCLUSION: No acute disease. Javon Botello MD Chest X-Ray 11/08/172035 Signed Impressions: Service Date/Time: October 20:50 - CONCLUSION: 1. Mild congestive heart failure. Issac Sullivan MD Objective Remarks GENERAL: This is a well-nourished, well-developed patient, in no apparent distress. SKIN: No rashes, warm and dry CARDIOVASCULAR: RRR, no gallops, or rubs. RESPIRATORY: Fair air entry bilaterally. No W, R, or R GASTROINTESTINAL: Abdomen soft, non-tender, nondistended. Positive bowel sounds MUSCULOSKELETAL: Extremities without clubbing, cyanosis but with bilateral lower extremity pitting edema which is improving. Pedal pulses appreciated NEUROLOGICAL: Awake and alert. Moves all extremity. Procedures Vas-Cath A/P Problem List: (1) Hallucinations ICD Code: R44.3 - Hallucinations, unspecified (2) Acute on chronic diastolic (congestive) heart failure ICD Code: I50.33 - Acute on chronic diastolic (congestive) heart failure Status: Acute Assessment and Plan 62-year-old female with history of CAD s/p 3vessel CABG, CHF, COPD on 3L NC, HTN , HLD, Diabetes, Anemia, CKD baseline creatinine around 2.0, presents with increasing shortness of breath, cough, edema, weight gain, and hallucinations over the past 2 weeks. The patient was recently admitted to [facility] 09/28-10/06 for acute renal failure, acute respiratory failure, CHF, fluid overload, possible pneumonia, s/p intubation on 09/29, discharged on Bumex 2mg bid for CHF. Acute Diastolic CHF Exacerbation: prior records indicate history of diastolic CHF, however no echo on file. Patient with +SOB/BARAKAT, BLE edema. CXR reviewed with mild CHF. -Improving continue diuresis with Lasix 40 mg IV every 12h -continue patient's BB, ARB, aspirin -Monitor Is&Os, fluid/salt restrictions -Monitor on telemetry -patient's Data Warehousing Specialist Dr. Escamilla following Atypical Chest Pain with hx of CAD s/p CABG: suspect chest pain/SOB secondary to CHF as above. She had a nuclear stress test 4 months ago that was reportedly normal. -Ruled out ACS with serial cardiac enzymes and EKGs -give aspirin, BB, nitro prn -monitor on telemetry -Cardiology consulted as above Encephalopathy tremor and ataxia Mostly due to uremia improved after starting hemodialysis Urinary obstruction. Improved Kim cath discontinued Hypertension: chronic -continue patient's home meds including cozaar, metoprolol, amiodarone -monitor BP, adjust antihypertensives as needed Diabetes Mellitus: chronic. A1c 10 -Hypoglycemic due to decreased oral continue patient's levemir 90u sq hs and decrease Novolog 18 u tidac. Hypoglycemia protocol -monitor accu-checks and cover with SSI COPD, Chronic Respiratory Failure on 3L NC at home: chronic, no wheezing on exam -continue duonebs q8h and q4h prn -O2 as needed -outpatient follow up with can operator Dr. Whitley. ESRD: Cr 2.01, appears around baseline. Records from [facility] reviewed, baseline around 1.9. -avoid nephrotoxins, caution with diuresis -monitor renal function which is improving -hemodialysis per nephrology Visual hallucinations: Mostly related to metabolic encephalopathy due to uremia and hypoxia, -Psychiatry consulted , they did not think it psychogenic, attributed it to metabolic disturbance Neurology consulted CT of the head within normal limits Hyperammonemia started on lactulose. AST slightly elevated negative hepatitis panel. DVT Prophylaxis: Heparin sq She is ambulatory Discharge Planning She was started on hemodialysis, further management per nephrology Reagan Montes MD Nov 17, 2017 11:07
[2017-11-17 12:00] VITALS: BP 127/68; PULSE 57; RESP 20; TEMP 98.2; O2SAT 94
--- NOTE | 2017-11-17 13:48 | HHI.PR ---
Subjective Remarks pt denies chest pain and SOB Objective Vital Signs Date Time Temp Pulse Resp B/P (MAP) Pulse Ox O2 Delivery O2 Flow Rate FiO2 11/17/17 12:00 98.2 57 20 127/68 (87) 94 11/17/17 10:06 Nasal Cannula 3.00 11/17/17 08:00 98.7 62 20 141/62 (88) 95 11/17/17 08:00 59 11/17/17 08:00 Nasal Cannula 3.00 11/17/17 00:00 98.5 61 20 164/70 (101) 95 11/16/17 21:42 97 Nasal Cannula 3.00 11/16/17 20:00 99.0 93 20 113/56 (75) 97 11/16/17 19:00 Nasal Cannula 3.00 11/16/17 17:00 56 11/16/17 16:00 97.4 52 20 147/64 (91) 96 I/O 11/16/17 11/16/17 11/16/17 11/17/17 11/17/17 11/17/17 07:00 15:00 23:00 07:00 15:00 23:00 Intake Total 300 ml 480 ml 120 ml Output Total 400 ml 2500 ml Balance -100 ml -2500 ml 480 ml 120 ml Intake Oral 300 ml 480 ml 120 ml Output Urine Total 400 ml Hemodialysis 2500 ml # Voids 4 2 # Bowel Movements 0 2 CHEST: CTA HEART: S1, S2 RRR ABD: ST, NT EXT: No edema Result Diagram: 11/17/17 0600 Assessment and Plan Assessment and Plan Renal function improving .stable cardiacwise. I will follow Jake Escamilla MD Nov 17, 2017 13:48
[2017-11-17 16:00] VITALS: BP 142/63; PULSE 55; PULSE 59; RESP 20; TEMP 98.6; O2SAT 96
[2017-11-17 19:53] VITALS: PULSE 59
[2017-11-17 20:00] VITALS: BP 155/64; PULSE 63; RESP 20; TEMP 99.2; O2SAT 95
[2017-11-17] MEDS: INSULIN DETEMIR 100 UNITS/ML VIAL SQ SCH (23:00)
[2017-11-18] VITALS: BP 142/65; PULSE 65; RESP 20; TEMP 98.5; O2SAT 96
[2017-11-18 00:14] VITALS: PULSE 60
[2017-11-18 04:09] VITALS: PULSE 58
[2017-11-18 08:00] VITALS: BP 156/67; PULSE 62; PULSE 63; RESP 20; TEMP 97.6; O2SAT 94
[2017-11-18 08:36] LABS: BICARBONATE 34.2 MEQ/L (21.0-32.0); CALCIUM 9.4 MG/DL (8.5-10.1); CREATININE 1.66 MG/DL (0.50-1.00)
[2017-11-18] MEDS: DOCUSATE SODIUM 50 MG/SENNA 8.6 MG TAB PO SCH (08:40)
[2017-11-18] MEDS: LACTULOSE SYRUP 20 GM/30 ML CUP PO SCH ×2 (08:40→11:51)
[2017-11-18] MEDS: VITAMIN B CMPLX/VITC/FOLIC AC CAP PO SCH (08:41)
[2017-11-18] MEDS: CHOLECALCIFEROL (VIT D3) 5000 UNIT CAP PO SCH (08:41)
[2017-11-18] MEDS: LOSARTAN 25 MG TAB PO SCH (08:41)
[2017-11-18] MEDS: ASPIRIN 81 MG CHEW TAB CHEW SCH (08:41)
[2017-11-18] MEDS: HEPARIN SODIUM - SQ 10,000 UNITS/ML VIAL SQ SCH (08:41)
[2017-11-18] MEDS: FUROSEMIDE 40 MG/4 ML VIAL IV PUSH SCH ×3 (08:41→09:35)
[2017-11-18] MEDS: CALCIUM ACETATE 667 MG CAP PO SCH ×2 (08:41→11:51)
[2017-11-18] MEDS: LACTIC ACID (AMMONIUM LACTATE) 12% LOTION 225 GM BTL TOPICAL SCH (08:42)
[2017-11-18] MEDS: AMIODARONE 200 MG TAB PO SCH (08:42)
[2017-11-18] MEDS: SODIUM CHLORIDE 0.9% FLUSH 10 ML FLUSH IV FLUSH SCH (08:42)
[2017-11-18] MEDS: METOPROLOL TARTRATE 25 MG TAB PO SCH (08:42)
[2017-11-18] MEDS: SORBITOL 70% SOLN 30 ML CUP PO SCH (08:42)
[2017-11-18] MEDS: INSULIN ASPART 1,000 UNITS/10 ML VIAL SQ SCH ×2 (08:49→11:37)
[2017-11-18] MEDS: INSULIN ASPART SUPPLEMENTAL SCALE SQ SCH ×2 (08:49→11:51)
--- NOTE | 2017-11-18 10:43 | HHI.PR ---
Subjective Remarks Follow-up kidney disease and bilateral lower extremity edema. She is doing okay initially refused IV Lasix because she does not want to be voiding all day. She wants to go home discussed with nursing will clarify with nephrology Objective Vitals Vital Signs Date Time Temp Pulse Resp B/P (MAP) Pulse Ox O2 Delivery O2 Flow Rate FiO2 11/18/17 08:00 97.6 63 20 156/67 (96) 94 11/18/17 04:09 58 11/18/17 04:00 Nasal Cannula 3.00 11/18/17 00:35 19 11/18/17 00:14 60 11/18/17 00:00 98.5 65 20 142/65 (90) 96 11/17/17 23:00 Nasal Cannula 3.00 11/17/17 20:00 99.2 63 20 155/64 (94) 95 11/17/17 19:53 59 11/17/17 16:00 55 11/17/17 16:00 98.6 59 20 142/63 (89) 96 11/17/17 12:00 98.2 57 20 127/68 (87) 94 I/O 11/17/17 11/17/17 11/17/17 11/18/17 11/18/17 11/18/17 07:00 15:00 23:00 07:00 15:00 23:00 Intake Total 120 ml 480 ml Balance 120 ml 480 ml Intake Oral 120 ml 480 ml # Voids 2 6 Result Diagram: 11/18/17 0710 Imaging Last Impressions Head CT 11/12/17 0000 Signed Impressions: Service Date/Time: Sunday, November 12, 2017 17:46 - CONCLUSION: Normal examination. Darryl David MD Catheter Placement X-Ray 11/12/17 0000 Signed Impressions: Service Date/Time: Sunday, November 12, 2017 16:29 - CONCLUSION: Uncomplicated ultrasound and fluoroscopic guided central venous hemodialysis catheter placement as above Darryl David MD Renal Ultrasound 11/11/17 0000 Signed Impressions: Service Date/Time: Saturday, November 11, 2017 10:13 - CONCLUSION: No acute disease. Javon Botello MD Chest X-Ray 11/08/[id number] Signed Impressions: Service Date/Time: October 20:50 - CONCLUSION: 1. Mild congestive heart failure. Issac Sullivan MD Objective Remarks GENERAL: This is a well-nourished, well-developed patient, in no apparent distress. SKIN: No rashes, warm and dry CARDIOVASCULAR: RRR, no gallops, or rubs. RESPIRATORY: Fair air entry bilaterally. No W, R, or R GASTROINTESTINAL: Abdomen soft, non-tender, nondistended. Positive bowel sounds MUSCULOSKELETAL: Extremities without clubbing, cyanosis but with bilateral lower extremity pitting edema which is improving. Pedal pulses appreciated NEUROLOGICAL: Awake and alert. Moves all extremity. Procedures Vas-Cath A/P Problem List: (1) Hallucinations ICD Code: R44.3 - Hallucinations, unspecified (2) Acute on chronic diastolic (congestive) heart failure ICD Code: I50.33 - Acute on chronic diastolic (congestive) heart failure Status: Acute Assessment and Plan 62-year-old female with history of CAD s/p 3vessel CABG, CHF, COPD on 3L NC(CRF) , HTN, HLD, Diabetes, Anemia, CKD baseline creatinine around 2.0, presents with increasing shortness of breath, cough, edema, weight gain, and hallucinations over the past 2 weeks. The patient was recently admitted to [facility] 09/28-10/06 for acute renal failure, acute respiratory failure, CHF, fluid overload, possible pneumonia, s/p intubation on 09/29, discharged on Bumex 2mg bid for CHF. Acute Diastolic CHF Exacerbation: prior records indicate history of diastolic CHF, however no echo on file. Patient with +SOB/BARAKAT, BLE edema. CXR reviewed with mild CHF. -Improving continue diuresis with Lasix 40 mg IV every 12h -continue patient's BB, ARB, aspirin -Monitor Is&Os, fluid/salt restrictions -Monitor on telemetry -patient's [employer] Dr. Escamilla following Atypical Chest Pain with hx of CAD s/p CABG: suspect chest pain/SOB secondary to CHF as above. She had a nuclear stress test 4 months ago that was reportedly normal. -Ruled out ACS with serial cardiac enzymes and EKGs -give aspirin, BB, nitro prn -monitor on telemetry -Cardiology consulted as above Encephalopathy tremor and ataxia Mostly due to uremia improved after starting hemodialysis Urinary obstruction. Improved Kim cath discontinued Hypertension: chronic -continue patient's home meds including cozaar, metoprolol, amiodarone -monitor BP, adjust antihypertensives as needed Diabetes Mellitus: chronic. A1c 10 -Hypoglycemic due to decreased oral continue patient's levemir 90u sq hs and decrease Novolog 18 u tidac. Hypoglycemia protocol -monitor accu-checks and cover with SSI COPD, Chronic Respiratory Failure on 3L NC at home: chronic, no wheezing on exam -continue duonebs q8h and q4h prn -O2 as needed -outpatient follow up with model technician Dr. Whitley. ESRD: Cr 2.01, appears around baseline. Records from [facility] reviewed, baseline around 1.9. -avoid nephrotoxins, caution with diuresis -monitor renal function which is improving -hemodialysis per nephrology. Vas-Cath removed November 16, 2017 Visual hallucinations: Mostly related to metabolic encephalopathy due to uremia and hypoxia, -Psychiatry consulted , they did not think it psychogenic, attributed it to metabolic disturbance Neurology consulted CT of the head within normal limits Hyperammonemia started on lactulose. AST slightly elevated negative hepatitis panel. DVT Prophylaxis: Heparin sq She is ambulatory Discharge Planning Discharge per nephrology Reagan Montes MD Nov 18, 2017 10:43
[2017-11-18 12:00] VITALS: BP 126/65; PULSE 57; PULSE 58; RESP 20; TEMP 98.9; O2SAT 96
--- NOTE | 2017-11-18 12:46 | HHI.PR ---
Subjective Remarks pt denies chest pain and SOB Objective Vital Signs Date Time Temp Pulse Resp B/P (MAP) Pulse Ox O2 Delivery O2 Flow Rate FiO2 11/18/17 12:00 98.9 57 20 126/65 (85) 96 11/18/17 08:00 62 11/18/17 08:00 Nasal Cannula 3.00 11/18/17 08:00 97.6 63 20 156/67 (96) 94 11/18/17 04:09 58 11/18/17 04:00 Nasal Cannula 3.00 11/18/17 00:35 19 11/18/17 00:14 60 11/18/17 00:00 98.5 65 20 142/65 (90) 96 11/17/17 23:00 Nasal Cannula 3.00 11/17/17 20:00 99.2 63 20 155/64 (94) 95 11/17/17 19:53 59 11/17/17 16:00 55 11/17/17 16:00 98.6 59 20 142/63 (89) 96 I/O 11/17/17 11/17/17 11/17/17 11/18/17 11/18/17 11/18/17 07:00 15:00 23:00 07:00 15:00 23:00 Intake Total 120 ml 480 ml Balance 120 ml 480 ml Intake Oral 120 ml 480 ml # Voids 2 6 CHEST: CTA HEART: S1,S2, RRR ABD : ST, NT EXT: No edema Result Diagram: 11/18/17 0710 Assessment and Plan Assessment and Plan Renal function improving .stable cardiacwise. I will follow Jake Escamilla MD Nov 18, 2017 12:46
[2017-11-18] MEDS ORDERED: CHOL5000 PO (13:35)
[2017-11-18] MEDS ORDERED: CALC667C PO (13:35)
[2017-11-18] MEDS ORDERED: NEPHRO PO (13:35)
[2017-11-18] MEDS ORDERED: Lactulose Liq PO (13:35)
[2017-11-18] MEDS ORDERED: NOVOLOGP2 SQ (13:35)
[2017-11-18] MEDS ORDERED: NEUR400C PO (13:35)
--- NOTE | 2017-11-18 13:36 | HHI.DCPOC ---
Discharge Care Plan Diagnosis: (1) Acute on chronic diastolic (congestive) heart failure Your Health Problems Are: Difficulty with ADL Exercise Tolerance Goals to Promote Your Health * To prevent worsening of your condition and complications * To maintain your health at the optimal level Directions to Meet Your Goals Take your medications as prescribed Follow your dietary instruction Follow activity as directed Keep your appointments as scheduled Take your immunizations and boosters as scheduled If your symptoms worsen call your PCP, if no PCP go to Urgent Care Center or Emergency Room Smoking is Dangerous to Your Health. Avoid second hand smoke Call the 24-hour hour crisis hotline for domestic abuse at Reagan Montes MD Nov 18, 2017 13:36
--- NOTE | 2017-11-18 14:24 | HHI.NPPN ---
Subjective History of Present Illness 62-year-old female with diabetes, acute and chronic kidney disease, CHF Additional Remarks Patient is alert, sitting on the chair, not in distress, clinically same. Objective Data Data Vital Signs Date Time Temp Pulse Resp B/P (MAP) Pulse Ox O2 Delivery O2 Flow Rate FiO2 11/18/17 12:00 98.9 57 20 126/65 (85) 96 11/18/17 08:00 62 11/18/17 08:00 Nasal Cannula 3.00 11/18/17 08:00 97.6 63 20 156/67 (96) 94 11/18/17 04:09 58 11/18/17 04:00 Nasal Cannula 3.00 11/18/17 00:35 19 11/18/17 00:14 60 11/18/17 00:00 98.5 65 20 142/65 (90) 96 11/17/17 23:00 Nasal Cannula 3.00 11/17/17 20:00 99.2 63 20 155/64 (94) 95 11/17/17 19:53 59 11/17/17 16:00 55 11/17/17 16:00 98.6 59 20 142/63 (89) 96 -: 11/18/17 0710 Physical Exam General Appearance: No Acute Distress, Comfortable, Obese Neck Neck Exam: Trachea Midline Pulmonary Resp Exam: Decreased Bases Cardiology CV Exam: Regular Gastrointestinal/Abdomen GI Exam: Soft, Non-Tender, Bowel Sounds Present Extremeties Extremities Exam: Trace Edema Neurologic Neuro Exam: Alert, Awake Psychiatric Psych Exam: Appropriate Responses Assessment/Plan Problem List: (1) Acute on chronic diastolic (congestive) heart failure ICD Codes: I50.33 - Acute on chronic diastolic (congestive) heart failure Status: Acute Plan: Patient has worsening creatinine Hemodialysis seen during dialysis on 2K bath ultrafiltration 3 L labs improved follow BMP Creatinine continue to improve, now 1.7. He may take that off during dialysis over the weekend If creatinine remains low may remove to Vas-Cath was Sunday Secondary hyperparathyroidism and vitamin D 3 5000 units daily on PhosLo and Nephrocaps. Continue Lasix, edema is improving. Creatinine is 1.6, for D/C, OK to D/C from Nephrology, she has been following with Dr. Coombs. (2) Diabetes ICD Codes: E11.9 - Type 2 diabetes mellitus without complications Plan: Patient on insulin coverage (3) SOB (shortness of breath) ICD Codes: R06.02 - Shortness of breath Plan: Multifactorial in might be early congestive heart failure continue to monitor (4) CAD (coronary artery disease) ICD Codes: I25.10 - Atherosclerotic heart disease of red devil coronary artery without angina pectoris (5) Hx of CABG ICD Codes: Z95.1 - Presence of aortocoronary bypass graft Plan: Cardiology is following (6) Alkalosis, metabolic ICD Codes: E87.3 - Alkalosis Plan: Patient appears to have dehydration leading to alkalosis Problem Qualifiers (1) Diabetes: Lupe Huff MD Nov 18, 2017 14:24
== END 2017-11-18 15:08 | disposition home or self-care (01) | DRG 291 ==
LOC: NEPC 20:19 → NEDA 11-09 00:51 → NEDH 11-09 04:51 → OBSVTOIN 11-09 07:40 → N04A 11-09 15:14
PROVIDERS: ADMIT Internal Medicine; ATTEND Internal Medicine
PROC: 05HM33Z Insertion of Infusion Device into Right Internal Jugular Vein, Percutaneous Approach (ICD-10-PCS; principal; 2017-11-12)
PROC: B513ZZA Fluoroscopy of Right Jugular Veins, Guidance (ICD-10-PCS; 2017-11-12)
DX: I13.2 Hypertensive heart and chronic kidney disease with heart failure and with stage 5 chronic kidney disease, or end stage renal disease (principal); I50.33 Acute on chronic diastolic (congestive) heart failure; G93.41 Metabolic encephalopathy; E87.3 Alkalosis; E86.0 Dehydration; N18.6 End stage renal disease; Z68.41 Body mass index [BMI] 40.0-44.9, adult; N25.81 Secondary hyperparathyroidism of renal origin; F05 Delirium due to known physiological condition; E11.22 Type 2 diabetes mellitus with diabetic chronic kidney disease; J44.9 Chronic obstructive pulmonary disease, unspecified; R44.1 Visual hallucinations; I25.10 Atherosclerotic heart disease of native coronary artery without angina pectoris; E78.5 Hyperlipidemia, unspecified; D64.9 Anemia, unspecified; G47.33 Obstructive sleep apnea (adult) (pediatric); E66.9 Obesity, unspecified; M10.9 Gout, unspecified; I42.9 Cardiomyopathy, unspecified; E11.649 Type 2 diabetes mellitus with hypoglycemia without coma; K59.00 Constipation, unspecified; Z79.4 Long term (current) use of insulin; Z99.81 Dependence on supplemental oxygen; Z95.1 Presence of aortocoronary bypass graft; Z72.0 Tobacco use; Z99.2 Dependence on renal dialysis
CPT/HCPCS: 36556; 70450; 71046; 76775; 76937; 77001; 80048; 80053; 80074; 80171; 81001; 82140; 82306; 82550; 82552; 82570; 82607; 82948; 83036; 83735; 83880; 83970; 84100; 84156; 84207; 84252; 84300; 84425; 84484; 85025; 85027; 85610; 85730; 87205; 90935; 93005; 94150; 94640; 94664; 96372; 96374; 96375; C1752; G0378; J1580; J1644; J1815; J1940; J2405; P9045; Q4081